=== PATIENT | male | born 1930 | race Caucasian/White ===

== ENCOUNTER 2018-04-13 13:22 | Observation (INO) ==
--- NOTE | 2018-04-13 14:02 | Emergency Department Report ---
General Adult HPI - General Chief complaint: Medical Clearance Stated complaint: [facility] Clearance Time Seen by Provider: 04/13/18 13:38 Source: patient, family Mode of arrival: ambulatory Limitations: other (dementia) - History of Present Illness HPI narrative: 88 M presents to the emergency department with a chief complaint of needing medical clearance for [facility]. Patient has been having a gradual decline with his dementia and slight increase in aggressive behavior over the past several months. Patient denies any pain or discomfort. Patient has had what he describes as a chronic cough. He was at his home when his symptoms began. Symptoms have been persistent in nature since onset. No other complaints or associated symptoms. Patient denies homicidal/suicidal ideation or plan. No self injury or self-harm. They do not note any exacerbating or remitting factors. - Related Data Home Medications Medication Instructions Recorded Confirmed Acetaminophen [Tylenol] 650 mg PO Q4H PRN 04/13/18 04/13/18 Aspirin [Adult Aspirin] 81 mg PO QAM 04/13/18 04/13/18 Bisacodyl Supp [Dulcolax] 10 mg RECTALLY DAILY PRN 04/13/18 04/13/18 Carboxymethylcellulose Sodium 2 drop EACH EYE Q4H PRN 04/13/18 04/13/18 [Refresh Liquigel] Diazepam [Valium] 5 mg PO Q12H PRN 04/13/18 04/13/18 Digoxin 125 mcg PO QAM 04/13/18 04/13/18 Divalproex Sodium [Divalproex 1,000 mg PO HS 04/13/18 04/13/18 Sodium ER] Doxazosin [Cardura] 2 mg PO DAILY 04/13/18 04/13/18 Dutasteride 0.5 mg PO QAM 04/13/18 04/13/18 EPINEPHrine [Epipen 2-Ariel] 0.3 mg IM PRN PRN 04/13/18 04/13/18 FentaNYL PATCH [Duragesic Patch] 50 mcg TD Q72H 04/13/18 04/13/18 Fluoxetine HCl 40 mg PO QAM 04/13/18 04/13/18 Fluticasone Nasal [place] [Flonase] 1 spray EA NOSTRIL QAM 04/13/18 04/13/18 Furosemide [Lasix 20 mg Tab] 20 mg PO DAILY 04/13/18 04/13/18 Haloperidol Lactate 5 mg IM Q8H PRN 04/13/18 04/13/18 Haloperidol [Haldol] 5 mg PO QAM 04/13/18 04/13/18 Levothyroxine Sodium 75 mcg PO ACB 04/13/18 04/13/18 Loperamide HCl [Imodium A-D] 2 mg PO QID PRN 04/13/18 04/13/18 Mag Hydrox/Aluminum Hyd/Simeth 30 ml PO Q4H PRN 04/13/18 04/13/18 [Alum-Mag Hydroxide-Simeth Liq] Magnesium Hydroxide [Milk of 30 ml PO DAILY PRN 04/13/18 04/13/18 Magnesia] Minocycline [Minocin] 100 mg PO QAM 04/13/18 04/13/18 Nystatin [Nystop] 1 applicatio TOP PRN PRN 04/13/18 04/13/18 OLANZapine [Olanzapine] 10 mg PO BID 04/13/18 04/13/18 Omeprazole 20 mg PO QAM 04/13/18 04/13/18 Peg 3350 238 G Bottle [Miralax] 17 gm PO DAILY PRN 04/13/18 04/13/18 Pseudoephedrine [Sudafed] 30 mg PO Q12H PRN 04/13/18 04/13/18 Tramadol [Ultram] 50 mg PO Q4HR PRN 04/13/18 04/13/18 Allergies Allergy/AdvReac Type Severity Reaction Status Date / Time morphine Allergy Verified 04/13/18 13:39 sunflower seed Allergy Verified 04/13/18 13:39 Review of Systems Limitations: ROS unobtainable due to patient's medical condition PFSH Arrhythmia Dementia with behavioral disturbance Diabetes mellitus, type 2 Hypertension Hyperthyroidism Surgical History: Several orthopedic surgeries Family History: Reviewed and noncontributory - Social History Smoking status: Never smoker Substance use type: does not use Alcohol intake frequency: does not drink Physical Exam - Limitations Limitations: no limitations - General General appearance: alert, in no apparent distress - Normal Exams: Head:: Normocephalic without trauma Eyes:: Pupils are PERRLA w/ EOMI, No scleral icterus, irritation, or foreign bodies noted ENMT:: No facial trauma, nasal exudates, pharyngeal erythema, or exudates are noted Dental: No fractured, loose, or missing teeth noted Neck:: Full range of motion, without adenopathy, JVD, bruits or thyromegaly Chest/Respirations:: Clear all diaz (slightly diminished breath sounds bilaterally.), with good airflow, and symmetry bilaterally Cardiovascular:: Regular rate and rhythm, without murmur or gallop, Pulses 2+ all extremities, capillary refill, <2 seconds all extremities Abdomen:: Bowel sounds positive, soft, non-tender, non-distended, no hepatosplenomegaly, masses or bruits noted Lymphatic:: No lymphadenopathy, or lymphedema noted Musculoskeletal:: No tenderness, or deformity noted, good range of motion, all extremities Integumentary:: No rashes, hives, or bruising noted, hair and nails, without abnormality Neurological:: Patient is alert (No focal deficit. At neuro baseline. ) Course Vital Signs Temperature 97.2 F 04/13/18 13:25 Pulse Rate 75 04/13/18 13:25 Respiratory Rate 16 04/13/18 13:25 Blood Pressure 111/64 04/13/18 13:25 Pulse Oximetry 90 04/13/18 13:25 Temperature 97.2 F 04/13/18 13:25 Pulse Rate 75 04/13/18 13:25 Respiratory Rate 16 04/13/18 13:25 Blood Pressure 111/64 04/13/18 13:25 Pulse Oximetry 90 04/13/18 13:25 Medical Decision Making - [facility] Narrative Medical decision making narrative: Labs/imaging were discussed in detail with the patient and family and questions are answered. Patient was ordered Levaquin 750 mg IV times one at 1700 when sepsis was considered. Patient was never hypotensive in the emergency department his lactic acid is less than 4. Patient was given 500 mL normal saline intravenously times one. Patient is discussed with Dr. Ferguson and will be admitted to the service of the hospitalist in improved condition. No further orders from accepting physician who is in agreement with the current plan of management. Patient and family are in agreement with the current plan of management. Patient declined offered analgesic pain medication in the emergency department stating that he is not having any pain or discomfort. - Differential Diagnosis dementia, metabolic disorder, UTI, pneumonia - Lab Data Result diagrams: 04/13/18 14:09 04/13/18 14:09 - Radiology Data CXR - Findings: Airspace consolidation in the left lower lobe. Possible infrahilar infiltrate on the right. Upper lobes are clear. No pneumothorax or effusion. Heart size and mediastinal contours are within normal limits. Tortuous thoracic aorta. Degenerative change in the spine and shoulders. Impression: Basilar pneumonia or aspiration, greater on the left. - EKG Data EKG #1 EKG results narrative: Sinus Rhythm. 79 bpm. NO STEMI. T wave inversion in V3-V6. T wave inversion in II/AVF. Disposition Clinical Impression: Pneumonia Qualifiers: Pneumonia type: due to unspecified organism Laterality: unspecified laterality Lung location: unspecified part of lung Qualified Code(s): J18.9 - Pneumonia, unspecified organism Disposition: 02 To [facility] [place] Acute Care Condition: Stable Time of Disposition: 16:00 (Admit. Dr. Ferguson. ) - Seen By: physician
--- NOTE | 2018-04-13 14:05 | XRay Report ---
Indication: med. clearance PROCEDURE: XR chest 1V: Encounter: Initial Comparison: None Findings: Airspace consolidation in the left lower lobe. Possible infrahilar infiltrate on the right. Upper lobes are clear. No pneumothorax or effusion. Heart size and mediastinal contours are within normal limits. Tortuous thoracic aorta. Degenerative change in the spine and shoulders. Impression: Basilar pneumonia or aspiration, greater on the left. .
[2018-04-13] MEDS: SALINE FLUSH 10ml SYRINGE IVF PRN ×2 (15:20→21:26)
[2018-04-13] MEDS ORDERED: LEVOFLOXACIN PB 750 MG/150 ML BAG IV SCH (17:00)
--- NOTE | 2018-04-13 18:04 | History & Physical Report ---
History of Present Illness Date: 04/15/18 Chief complaint: altered level of consciousness HPI: Mr. Alatorre's 88-year-old man in assisted living who has been increasingly fractious with his nursing staff. During the course the last day he is been increasingly altered level of consciousness in this quite somnolent by the time of my arrival. All of the information is being related by his son who had been primary patient care specialist until his placement in the assisted. He states that the patient has had a cough but no fevers or chills and no reported malaise. Review of Systems ROS unobtainable: due to mental status Past Medical History Medical History: Medical History (Last Updated 04/13/18 @ 18:06 by Patrick Ferguson MD) Dementia with behavioral disturbance Hypertension Family History: No Significant Family History - Social History Smoking status: Former smoker Substance use type: does not use Alcohol intake frequency: does not drink Medications Home Medications Medication Instructions Recorded Confirmed Type Acetaminophen [Tylenol] 650 mg PO Q4H PRN 04/13/18 04/14/18 History Aspirin [Adult Aspirin] 81 mg PO QAM 04/13/18 04/14/18 History Bisacodyl Supp [Dulcolax] 10 mg RECTALLY DAILY PRN 04/13/18 04/14/18 History Carboxymethylcellulose Sodium 2 drop EACH EYE Q4H PRN 04/13/18 04/14/18 History [Refresh Liquigel] Diazepam [Valium] 5 mg PO Q12H PRN 04/13/18 04/14/18 History Digoxin 125 mcg PO QAM 04/13/18 04/14/18 History Divalproex Sodium [Divalproex 1,000 mg PO HS 04/13/18 04/14/18 History Sodium ER] Doxazosin [Cardura] 2 mg PO DAILY 04/13/18 04/14/18 History Dutasteride 0.5 mg PO QAM 04/13/18 04/14/18 History EPINEPHrine [Epipen 2-Ariel] 0.3 mg IM PRN PRN 04/13/18 04/14/18 History FentaNYL PATCH [Duragesic Patch] 50 mcg TD Q72H 04/13/18 04/14/18 History Fluoxetine HCl 40 mg PO QAM 04/13/18 04/14/18 History Fluticasone Nasal [place] [Flonase] 1 spray EA NOSTRIL QAM 04/13/18 04/14/18 History Furosemide [Lasix 20 mg Tab] 20 mg PO DAILY 04/13/18 04/14/18 History Haloperidol Lactate 5 mg IM Q8H PRN 04/13/18 04/14/18 History Haloperidol [Haldol] 5 mg PO QAM 04/13/18 04/14/18 History Levothyroxine Sodium 75 mcg PO ACB 04/13/18 04/14/18 History Loperamide HCl [Imodium A-D] 2 mg PO QID PRN 04/13/18 04/14/18 History Mag Hydrox/Aluminum Hyd/Simeth 30 ml PO Q4H PRN 04/13/18 04/14/18 History [Alum-Mag Hydroxide-Simeth Liq] Magnesium Hydroxide [Milk of 30 ml PO DAILY PRN 04/13/18 04/14/18 History Magnesia] Minocycline [Minocin] 100 mg PO QAM 04/13/18 04/14/18 History Nystatin [Nystop] 1 applicatio TOP PRN PRN 04/13/18 04/14/18 History OLANZapine [Olanzapine] 10 mg PO BID 04/13/18 04/14/18 History Omeprazole 20 mg PO QAM 04/13/18 04/14/18 History Peg 3350 238 G Bottle [Miralax] 17 gm PO DAILY PRN 04/13/18 04/14/18 History Pseudoephedrine [Sudafed] 30 mg PO Q12H PRN 04/13/18 04/14/18 History Tramadol [Ultram] 50 mg PO Q4HR PRN 04/13/18 04/14/18 History Acetaminophen [Tylenol] 325 - 650 mg PO Q5H PRN tab 04/14/18 04/14/18 Rx Azithromycin 250 mg PO DAILY #6 tab 04/14/18 04/14/18 Rx Nystatin Powder [Mycostatin] 1 applicatio TP PRN PRN #1 bottle 04/14/18 Rx Polyvinyl Alcohol/Povidone O/S 2 drop EACH EYE Q4H PRN ampul 04/14/18 04/14/18 Rx [Refresh Classic] Allergies Allergy/AdvReac Type Severity Reaction Status Date / Time morphine Allergy Verified 04/13/18 13:39 sunflower seed Allergy Verified 04/13/18 13:39 Exam Vital Signs: Temperature 97.2 F 04/13/18 13:25 Pulse Rate 67 04/13/18 16:04 Respiratory Rate 20 04/13/18 16:04 Blood Pressure 125/60 04/13/18 16:04 Pulse Oximetry 92 04/13/18 16:04 Height/Weight/BMI: Height 5 ft 10 in Weight 74.843 kg - Constitutional Present: no acute distress, well nourished, well developed, somnolent - Routine HEENT Exam Head: Present: normocephalic, atraumatic ENT: Present: mucous membranes dry, dentition normal - Routine Neck Exam Absent: JVD, lymphadenopathy - Routine Respiratory Exam Present: CTA bilaterally. Absent: accessory muscle use, wheezes - Routine Cardiovascular Exam Present: RRR, S1, S2. Absent: murmur - Routine Abdominal Exam Present: soft, normoactive bowel sounds, non distended. Absent: tenderness - Routine Extremities Exam Present: normal capillary refill - Routine Skin Exam Present: dry, warm - Routine Neurological Exam Absent: alert - Routine Psychiatric Exam Present: unable to assess Results - Labs CBC & Chem 7: 04/14/18 06:02 04/14/18 12:01 Microbiology Results: Microbiology 04/13/18 17:21 Peripheral/Iv Start Blood Culture - Preliminary Culture Initiated - Results Pending 04/13/18 17:18 Peripheral/Iv Start Blood Culture - Preliminary Culture Initiated - Results Pending - Imaging and Cardiology Chest x-ray Status: image reviewed by me Additional comments: Minimal haziness at the bases bilaterally but not a good inspiratory film. Doubtful of pneumonia when correlated to auscultation of the lungs Assessment and Plan Assessment and Plan: Acute altered level of consciousness: rule out infectious encephalopathy Dementia with behavioral disturbance: patient is already on home medications for this but has not been poorly controlled in the assisted. [facility] has been contacted and they wish him placed in observation and further assessed for possible infection as there is some bilateral basal haziness on chest x-ray. Leukocytosis. Appears mild and may be due to some clinical dehydration. Will give the patient half a liter fluids at this time and repeat CBC in the morning. Levaquin had been initiated by disease 88 and has behavioral emotional disturbances I would not recommend continuing this. Will give them a very short course of Rocephin in the meantime but would not be inclined to continue this more than 72 hours unless more definitive signs of infection develop DISPOSITION: observation status with intention to place to [facility]. - Time spent with patient Time with patient PN: 30 minutes - Physician Narrative Physician: other Narrative: Date: 04/13/18 Time: 1800 Hospital Course Summary Disclaimer: The visit summary below is not to be considered part of the above Progress Note.
[2018-04-13] MEDS ORDERED: ACETAMINOPHEN 325 MG TABLET PO PRN (18:51)
[2018-04-13] MEDS ORDERED: BISACODYL 10 MG SUPPOSITORY RECTALLY PRN (18:51)
[2018-04-13] MEDS ORDERED: CEFTRIAXONE 1 G in NS 100 ML IV SCH ×2 (18:51→21:00)
[2018-04-13] MEDS ORDERED: CEFTRIAXONE 1 G in D5W 100 ML IV SCH (19:00)
[2018-04-13] MEDS ORDERED: DIAZEPAM 5 MG TABLET PO PRN (20:53)
[2018-04-13] MEDS ORDERED: HALOPERIDOL LACTATE 5 MG IV PRN (20:53)
[2018-04-13] MEDS ORDERED: OLANZapine 10 MG TABLET PO PRN (20:54)
[2018-04-14] MEDS: SALINE FLUSH 10ml SYRINGE IVF PRN ×2 (05:07→09:45)
[2018-04-14] MEDS ORDERED: HALOPERIDOL 5 MG/ML INJECTION IM PRN (06:29)
[2018-04-14] MEDS ORDERED: HALOPERIDOL 5 MG/ML INJECTION IVP PRN (06:45)
[2018-04-14] MEDS ORDERED: BISACODYL 10 MG SUPPOSITORY RECTALLY PRN (11:16)
[2018-04-14] MEDS ORDERED: MAG-AL + SIM ORAL LIQUID 30ml PO PRN (11:16)
[2018-04-14] MEDS ORDERED: NYSTATIN TOP PRN (11:16)
[2018-04-14] MEDS ORDERED: CARBOXYMETHYLCELLULOSE SODIUM D EACH EYE PRN (11:16)
[2018-04-14] MEDS ORDERED: POLYETHYL GLYCOL 3350 17gm PACKET PO PRN (11:16)
[2018-04-14] MEDS ORDERED: DOXAZOSIN 2 MG TABLET PO SCH (11:30)
[2018-04-14] MEDS ORDERED: REFRESH CLASSIC Eye Drops 0.4ml EACH EYE PRN (13:04)
--- NOTE | 2018-04-14 14:09 | Wound Care Progress Note ---
Wound Management - Patient Status Premedicated Prior to Dressing Change: No - Wound Left Heel Wound Type: Pressure Injury Wound Present on Admission?: Yes Wound Staging: Stage III Length: 1 Width: 0.8 Depth: 0.1 Wound Bed Appearance: Eschar Drainage Amount: Scant Drainage Odor: No Odor Irrigant Solution: Enzymatic Paste (Iodasorb) Primary Dressing: Foam Dressing Dressing Change Date: 04/14/18 Dressing Change Time: 14:08 Dressing Change Patient Tolerance: Tolerated Well (Will change Q 3 days.) Microbiology: Microbiology 04/13/18 17:21 Peripheral/Iv Start Blood Culture - Preliminary Culture Initiated - Results Pending 04/13/18 17:18 Peripheral/Iv Start Blood Culture - Preliminary Culture Initiated - Results Pending Right Heel Wound Type: Pressure Injury Wound Present on Admission?: Yes Wound Staging: Stage III Length: 1.7 Width: 1 Depth: 0.5 Wound Bed Appearance: Eschar Karla Wound Appearance: [place] Tunneling: No Undermining: No Drainage Amount: Scant Drainage Odor: No Odor Dressing Status: Changed Irrigant Solution: Enzymatic Paste (Iodosorb) Primary Dressing: Foam Dressing (Change drsg Q 3 days) Dressing Change Date: 04/14/18 Dressing Change Time: 14:09 Dressing Change Patient Tolerance: Tolerated Well Microbiology: Microbiology 04/13/18 17:21 Peripheral/Iv Start Blood Culture - Preliminary Culture Initiated - Results Pending 04/13/18 17:18 Peripheral/Iv Start Blood Culture - Preliminary Culture Initiated - Results Pending
--- NOTE | 2018-04-14 14:17 | Discharge Summary ---
Discharge Information Date of admission: 04/13/18 17:00 Anticipated date of discharge: 04/14/18 Attending Physician: Patrick Ferguson MD Primary care physician: OTHER Consults: 04/14/18 00:50 [facility] Consult [CONS] Routine Reason for consultation: STAGE 3 WOUND TO RIGHT HEEL FOUND ON ASSESSMENT 04/14/18 11:18 Physician Consult [CONS] Routine Consulting Provider: Rosa Maria La Reason For Exam: agitation, behaviors Ordering Provider has Notified Cooling Tower Operator: No - Discharge Diagnosis (1) Dementia with behavioral disturbance Status: Acute (2) Altered level of consciousness Status: Acute (3) Leukocytosis Status: Resolved Bibasilar pneumonia, acute, present on admission. Dementia with behavioral disturbance, present on admission. Altered level of consciousness, improving. Pressure ulcer to left heel, present on admission. Clinical dehydration, present on admission, resolved. Leukocytosis, present on admission, resolved. Hypernatremia, not present on admission. Arrhythmia, chronic. Diabetes mellitus, type 2. Hypertension. Chronic pain. Allergic rhinitis. Hypothyroidism. GERD. - Laboratory Labs: Laboratory Tests 04/13/2018 04/13/2018 04/13/2018 04/14/2018 04/14/2018 14:09 17:18 20:22 6:02 12:01 WBC 11.5 H 9.1 RBC 5.15 4.85 Hgb 15.1 14.2 Hct 45.9 43.5 MCV 89.1 89.7 MCH 29.3 29.3 MCHC 32.9 32.6 RDW Std Deviation 49.7 49.7 Plt Count 203 192 MPV 10.3 10.5 Immature Gran % (Auto) 0.4 Neut % (Auto) 75.6 H Lymph % (Auto) 10.8 L [place] % (Auto) 12.0 H Eos % (Auto) 1 Baso % (Auto) 0.2 Neut # (Auto) 8.7 H Lymph # (Auto) 1.2 [place] # (Auto) 1.4 H Eos # (Auto) 0.1 Baso # (Auto) 0 Abs Immat Gran (auto) 0.05 H Neutrophils % (Manual) 65 Lymphocytes % (Manual) 17.0 L Monocytes % (Manual) 9 Eosinophils % (Manual) 8.0 H Basophils % (Manual) 1 Neutrophils # (Manual) 5.9 Lymphocytes # (Manual) 1.5 Monocytes # (Manual) 0.8 Eosinophils # (Manual) 0.7 H Basophils # (Manual) 0.1 RBC Morph Comment Normal Turbidity < 20 < 20 Sodium 143 147 H Potassium 4.2 3.8 Chloride 104 108 H Carbon Dioxide 26 27 Anion Gap 13 12 BUN 36.0 H 32.0 H Creatinine 1.1 1 GFR Calculation 63 71 BUN/Creatinine Ratio 33 H 32 H Glucose 112 H 91 Calculated Osmolality 284 H 289 H Calcium 9.7 9.2 Total Bilirubin 0.7 Icterus Index < 2 < 2 AST 27 ALT 15 Alkaline Phosphatase 103 Troponin I < 0.012 Total Protein 7.2 Albumin 3.9 Globulin 3.3 Albumin/Globulin Ratio 1.2 Plasma Lactate 0.9 0.9 Vitamin B12 > 1000 H Specimen Hemolysis < 15 < 15 Ur Collection Type Urine, void-cc/notcc Urine Color Yellow Urine Clarity Clear Urine pH 5.5 Ur Specific Hayes 1.02 Urine Protein Negative Urine Glucose (UA) Negative Urine Ketones Negative Urine Occult Blood Trace-lysed Urine Nitrate Negative Urine Bilirubin Negative Urine Urobilinogen 0.2 Ur Leukocyte Esterase Negative Urinalysis Comment Microscopic not ind. Digoxin 0.8 - Microbiology Microbiology 04/13/18 17:21 Peripheral/Iv Start Blood Culture - Preliminary Culture Initiated - Results Pending 04/13/18 17:18 Peripheral/Iv Start Blood Culture - Preliminary Culture Initiated - Results Pending - Radiology Radiology: Date of Exam: 04/13/18 Type of Exam(s): XR chest 1V Reason for Exam(s): med. clearance Findings: Airspace consolidation in the left lower lobe. Possible infrahilar infiltrate on the right. Upper lobes are clear. No pneumothorax or effusion. Heart size and mediastinal contours are within normal limits. Tortuous thoracic aorta. Degenerative change in the spine and shoulders. Impression: Basilar pneumonia or aspiration, greater on the left. History of Present Illness HPI: Mr. Alatorre's 88-year-old man in assisted living who has been increasingly fractious with his nursing staff. During the course the last day he is been increasingly altered level of consciousness in this quite somnolent by the time of my arrival. All of the information is being related by his son who had been primary home care chaplain until his placement in the custodial. He states that the patient has had a cough but no fevers or chills and no reported malaise. Objective Vital signs: Temperature 98.1 F 04/14/18 08:00 Pulse Rate 69 04/14/18 08:00 Respiratory Rate 18 04/14/18 08:00 Blood Pressure 133/82 04/14/18 08:00 Pulse Oximetry 92 04/14/18 08:00 Height/Weight/BMI: Height 5 ft 10 in Weight 158 lb 4.67 oz Body Mass Index 22.4 Hospital Course This is a general summary of the patient's hospital course. For more details refer to the complete medical record. Hospital course: 04/13/18: Patient admitted to observation status under the care of the hospitalist service. Acute altered level of consciousness: rule out infectious encephalopathy Dementia with behavioral disturbance: patient is already on home medications for this but has not been poorly controlled in the custodial. [facility] has been contacted and they wish him placed in observation and further assessed for possible infection as there is some bilateral basal haziness on chest x-ray. Leukocytosis. Appears mild and may be due to some clinical dehydration. Will give the patient half a liter fluids at this time and repeat CBC in the morning. Levaquin had been initiated by disease 88 and has behavioral emotional disturbances I would not recommend continuing this. Will give them a very short course of Rocephin in the meantime but would not be inclined to continue this more than 72 hours unless more definitive signs of infection develop DISPOSITION: observation status with intention to place to geriatric psychiatric [facility]. 04/14/18: Patient seen and screened by liu and will be transferred to the [facility] unit for further psychiatric evaluation and treatment. Leukocytosis resolved. Patient remains afebrile. Will change treatment for pneumonia to oral azithromycin x 5 days. Speech therapy consulted for dysphagia evaluation and awaiting results. Wound care to continue to follow patient regarding pressure ulcer to left heel. Will continue home medications and psychiatric medications per Dr. La and team. Seen and examined patient on same day as the above note. Agree with history, physical, assessment and plan. Comprehensive physical findings correlate to the above note. Exam: Gen.:no apparent distress, moderately aroussable to noxious stimuli HEENT: normocephalic atraumatic, oral mucosa moderately dry neck: no lymphadenopathy no jugular venous distention respiratory: there to auscultation bilaterally with good excursion cardiovascular: cardiovascular S1 S2 no adventitious murmurs rubs or gallops abdomen/GI: soft nondistended with bowel sounds extremities: good peripheral perfusion with no edema skin/integument: no significant injuries or edema neuro: minimally responsive but protecting airway. No focal deficits appreciable psych: unable to assess Labs: reviewed imaging: radiology the image as a left basilar infiltrate which did not correlate to my clinical findings. EKG: within normal limits Assessment and plan: pneumonia not very probable but I cannot get proper inspiratory breath so will convert the patient over to oral azithromycin. Dysphagia screening has been performed. Patient appears medically stable to transfer to geriatric psychiatry. Leukocytosis improved after fluids. Patient remains altered but if this is for medical reason of a minimal pneumonia in the base it will improve on oral antibiotics. Documented on [employer]on speech to text. Efforts to correct speech recognition errors performed, but variation may exist Time spent with patient: greater than 35 minutes Resuscitation Status: Do Not Resuscitate Discharge Plan - Discharge Disposition Discharge Date: 04/14/18 Disposition: 66 [facility] *Condition: Stable Reason For Visit (Visit label in EMR): pneumonia - Discharge Medications *Discharge Medications: New Acetaminophen [Tylenol] 325 - 650 mg PO Q5H PRN tab PRN Reason: Discomfort Nystatin Powder [Mycostatin] 1 applicatio TP PRN PRN #1 bottle PRN Reason: Apply to groin area as needed Polyvinyl Alcohol/Povidone O/S [Refresh Classic] 2 drop EACH EYE Q4H PRN ampul PRN Reason: Dry Eyes Azithromycin 250 mg PO DAILY #6 tab Continue Haloperidol Lactate 5 mg IM Q8H PRN PRN Reason: Agitation Fluticasone Nasal Lyman [Flonase] 1 spray EA NOSTRIL QAM FentaNYL PATCH [Duragesic Patch] 50 mcg TD Q72H EPINEPHrine [Epipen 2-Ariel] 0.3 mg IM PRN PRN PRN Reason: Prn Orders Bisacodyl Supp [Dulcolax] 10 mg RECTALLY DAILY PRN PRN Reason: Constipation Doxazosin [Cardura] 2 mg PO DAILY Digoxin 125 mcg PO QAM Divalproex Sodium [Divalproex Sodium ER] 1,000 mg PO HS Aspirin [Adult Aspirin] 81 mg PO QAM Dutasteride 0.5 mg PO QAM Loperamide HCl [Imodium A-D] 2 mg PO QID PRN PRN Reason: Diarrhea Diazepam [Valium] 5 mg PO Q12H PRN PRN Reason: Agitation Tramadol [Ultram] 50 mg PO Q4HR PRN PRN Reason: Pain Acetaminophen [Tylenol] 650 mg PO Q4H PRN PRN Reason: Pain /Fever Pseudoephedrine [Sudafed] 30 mg PO Q12H PRN PRN Reason: Allergy Symptoms Carboxymethylcellulose Sodium [Refresh Liquigel] 2 drop EACH EYE Q4H PRN PRN Reason: Dry Eyes Omeprazole 20 mg PO QAM Nystatin [Nystop] 1 applicatio TOP PRN PRN PRN Reason: Prn Orders Mag Hydrox/Aluminum Hyd/Simeth [Alum-Mag Hydroxide-Simeth Liq] 30 ml PO Q4H PRN PRN Reason: Indigestion Peg 3350 238 G Bottle [Miralax] 17 gm PO DAILY PRN PRN Reason: Constipation Minocycline [Minocin] 100 mg PO QAM Magnesium Hydroxide [Milk of Magnesia] 30 ml PO DAILY PRN PRN Reason: Constipation Levothyroxine Sodium 75 mcg PO ACB OLANZapine [Olanzapine] 10 mg PO BID Haloperidol [Haldol] 5 mg PO QAM Fluoxetine HCl 40 mg PO QAM Furosemide [Lasix 20 mg Tab] 20 mg PO DAILY - Discharge Packet/Instructions *Diet: Cardiac diet with 2g salt restriction and low fat. *Activity: As tolerated. *Pain Management/Treatment: Tylenol 325-650 Q5H PRN. *Wound Care: Left heel pressure ulcer, stage III - Foam dressing every 3 days per wound care. Right heel pressure ulcer, stage III - foam dressing every 3 days per wound care. *Expected Signs/Symptoms: Gradual improvement in behaviors with psychiatric cares. *Notify Physician if: fever >100.8, increased shortness of breath, decreased level of consciousness, change or worsening in condition. *During Business Hours Contact: your primary care provider. *After Business Hours Contact: your primary care provider or [facility]. *Pending Lab/Results: No Pending Lab - IRU/GEN Discharge/Transfer - Referrals/Follow Up *Referrals/Follow Up: Doctor, [facility] [Other] - 1 Week (Call to schedule following discharge) - Patient Handouts Patient Handouts: Pneumonia (GEN) - Dismissal Complete Discharge Instructions are:: Complete Physician Narrative - Narrative Attestation Narrative: Date: 04/14/18 Time: 2521
[2018-04-14 14:42] VITALS: BMI 22.7
[2018-04-14 15:17] VITALS: BP 118/64; PULSE 95; RESP 14; TEMP 97.3; O2SAT 93
[2018-04-15] MEDS ORDERED: LEVOTHYROXINE 75 MCG TABLET PO SCH (06:30)
[2018-04-15] MEDS ORDERED: OMEPRAZOLE 20 MG CAPSULE PO SCH (06:30)
[2018-04-15] MEDS ORDERED: FUROSEMIDE 20 MG TABLET PO SCH (09:00)
[2018-04-15] MEDS ORDERED: DUTASTERIDE 0.5 MG CAPSULE PO SCH (09:00)
[2018-04-15] MEDS ORDERED: FLUoxetine 20 MG CAPSULE PO SCH (09:00)
[2018-04-15] MEDS ORDERED: ASPIRIN *EC* 81 MG TABLET PO SCH (09:00)
[2018-04-15] MEDS ORDERED: FLUTICASONE NASAL SPRAY 50mcg EA NOSTRIL SCH (09:00)
[2018-04-15] MEDS ORDERED: DIGOXIN 125 MCG TABLET PO SCH (09:00)
[2018-04-15] MEDS ORDERED: MINOCYCLINE 100 MG CAPSULE PO SCH (09:00)
== END 2018-04-14 15:55 ==
LOC: EDHOLD 13:22 → ED 13:22 → MED 18:38
PROVIDERS: ADMIT Family Medicine; ATTEND Family Medicine

== ENCOUNTER 2018-04-14 16:29 | Inpatient (IN) ==
--- OUTSIDE RECORDS SUMMARY | 2018-04-14 16:46 | External Medical Summary | Continuity of Care Document ---
:1930 Author Organization [facility] Allergies Active Description Code Type Severity Reaction Onset Reported/ Identified Relationship Clinical to Patient Status Yes MORPHINE 1545 DRUG N/A N/A Yes SUNFLOWER 58378 DRUG N/A N/A SEED Yes No Known 69377 N/A N/A Drug 998 Allergies Yes .MDRO 0040 Misce N/A N/A 04/02/2015 llane ous Aller gy Yes .OLU 0030 Misce N/A N/A 04/02/2015 llane ous Aller gy Yes morphine F0060 Drug N/A N/A 04/02/2015 28070 Aller gy Yes SUNFLOWER SUNFL Misce Severe THROAT 04/02/2015 SEEDS OWER llane CLOSES SEEDS ous Aller gy Yes morphine Aller Unknown N/A 04/13/2018 gy Yes sunflower Aller Unknown N/A 04/13/2018 seed gy Medications Medication Packaging Start Date Stop Date Route Dosage Sig Adult 04/13/2018 PO 81 mg Aspirin QAM 04/13/2018 PO 100 mg Minocin QAM 04/13/2018 PO 20 mg Omeprazole QAM 04/13/2018 PO 360 ml Alum-Mag Q4H Hydroxide-Simeth Liq Milk 04/13/2018 PO 400 mg/5 ml of Magnesia DAILY 04/13/2018 IM 5 mg/ml Haloperidol Q8H Lactate Ultram 04/13/2018 PO 50 mg Q4HR 04/13/2018 PO 2 mg Cardura DAILY Valium 04/13/2018 PO 5 mg Q12H 04/13/2018 PO 325 mg Tylenol Q4H Epipen 04/13/2018 IM 0.3 mg/0.3 2-Ariel ml PRN 04/13/2018 PO 238 gm Miralax DAILY 04/13/2018 PO 30 mg Sudafed Q12H Haldol 04/13/2018 PO 5 mg QAM 04/13/2018 RECTALLY 10 mg Dulcolax DAILY Nystop 04/13/2018 TOP 60 gm PRN 04/13/2018 PO 2 mg Imodium A-D QID 04/13/2018 TD 50 Duragesic Patch mcg/patch Q72H 04/13/2018 PO 75 mcg Levothyroxine ACB Sodium 04/13/2018 PO 125 mcg Digoxin QAM 04/13/2018 PO 500 mg Divalproex Sodium HS ER 04/13/2018 PO 40 mg Fluoxetine HCl QAM 04/13/2018 PO 10 mg Olanzapine BID Lasix 04/13/2018 PO 20 mg 20 mg Tab DAILY 04/13/2018 EA NOSTRIL 120 Flonase spray/16 g QAM 04/13/2018 PO 0.5 mg Dutasteride QAM 04/13/2018 EACH EYE 15 ml Refresh Liquigel Q4H Problems Date Dx Attending Type Code Diagnosis Diagnosed By Coded 02/25/2015 OT 812.41 02/25/2015 OT E885.9 03/13/2015 Hernan-Michele OT 812.41 , Mitul E 03/13/2015 Hernan-Ordenes OT E885.9 , Mitul E 04/02/2015 Hernan-Ordenes OT 812.41 , Mitul E 04/02/2015 Hernan-Ordenes OT E885.9 , Mitul E 04/10/2015 Hernan-Ordenes OT 812.41 , Mitul E 04/10/2015 Hernan-Ordenes OT E885.9 , Mitul E 04/11/2015 NICK SMILEY F 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), WITHOUT BEHAVIORAL DISTURBANCE 04/11/2015 NICK SMILEY F 28355 ANXIETY DISORDER NOS 04/11/2015 Hernan-Ordenes OT 812.41 , Mitul E 04/11/2015 Hernan-Ordenes OT E885.9 , Mitul E 04/11/2015 Hunsberger DO, OT 250.00 Abhi R 04/11/2015 Hunsberger DO, OT 294.10 Abhi R 04/11/2015 Hunsberger DO, OT 300.00 Abhi R 04/11/2015 Hunsberger DO, OT 331.0 Abhi R 04/11/2015 Hunsberger DO, OT 338.29 Abhi R 04/11/2015 Hunsberger DO, OT 401.9 Abhi R 04/11/2015 Hunsberger DO, OT 564.00 Abhi R 04/11/2015 Hunsberger DO, OT 719.7 Abhi R 04/11/2015 Hunsberger DO, OT 721.42 Abhi R 04/11/2015 Hunsberger DO, OT 729.89 Abhi R 04/11/2015 Hunsberger DO, OT 799.3 Abhi R 04/11/2015 Hunsberger DO, OT V15.82 Abhi R 04/11/2015 Hunsberger DO, OT V15.88 Abhi R 04/11/2015 Hunsberger DO, OT V43.65 Abhi R 04/11/2015 Hunsberger DO, OT V45.89 Abhi R 04/11/2015 Hunsberger DO, OT V54.19 Abhi R 04/11/2015 Hunsberger DO, OT V57.89 Abhi R 04/16/2015 Hernan-Ordenes OT 812.41 , Mitul E 04/22/2015 Hernan-Ordenes OT 812.40 , Mitul E 04/25/2015 Hernan-Ordenes OT 812.41 , Mitul E 05/06/2015 Hernan-Ordenes OT 812.41 , Mitul E 05/10/2015 Hernan-Ordenes OT 812.40 , Mitul E 05/14/2015 Hernan-Ordenes OT 812.41 , Mitul E 05/15/2015 Hernan-Ordenes OT 812.41 , Mitul E 05/15/2015 Hernan-Ordenes OT 812.40 , Mitul E 05/18/2015 Hernan-Ordenes OT 812.41 , Mitul E 05/20/2015 Hernan-Ordenes OT 812.41 , Mitul E 05/22/2015 Hernan-Ordenes OT 812.41 , Mitul E 05/27/2015 Zheng HERRON, Fox Rojo OT 812.41 05/28/2015 Hernan-Ordenes OT 812.41 , Mitul Morris 05/28/2015 Srinivasan DE SOUZA, Addy OT 272.0 [place] 05/28/2015 Srinivasan DE SOUZA, Addy OT 401.1 [place] 05/28/2015 Srinivasan DE SOUZA, Addy OT 424.1 [place] 05/28/2015 Srinivasan DE SOUZA, Addy OT 272.0 [place] 05/28/2015 Srinivasan DE SOUZA, Addy OT 401.1 [place] 05/28/2015 Srinivasan DE SOUZA, Addy OT 424.1 [place] 05/28/2015 Srinivasan DE SOUZA, Addy OT 272.0 [place] 05/28/2015 Srinivasan DE SOUZA, Addy OT 401.1 [place] 05/28/2015 Srinivasan DE SOUZA, Addy OT 424.1 [place] 05/28/2015 Srinivasan DE SOUZA, Addy OT 272.0 [place] 05/28/2015 Srinivasan DE SOUZA, Addy OT 401.1 [place] 05/28/2015 Srinivasan DE SOUZA, Addy OT 424.1 [place] 06/04/2015 Srinivasan DE SOUZA, Addy OT 272.0 [place] 06/04/2015 Srinivasan DE SOUZA, Addy OT 401.1 [place] 06/04/2015 Srinivasan DE SOUZA, Addy OT 424.1 [place] 06/04/2015 Srinivasan DE SOUZA, Addy OT 272.0 [place] 06/04/2015 Srinivasan DE SOUZA, Addy OT 401.1 [place] 06/04/2015 Srinivasan DE SOUZA, Addy OT 424.1 [place] 06/04/2015 Srinivasan DE SOUZA, Addy OT 272.0 [place] 06/04/2015 Sirnivasan DE SOUZA, Addy OT 401.1 [place] 06/04/2015 Srinivasan DE SOUZA, Addy OT 424.1 [place] 06/04/2015 Srinivasan DE SOUZA, Addy OT 272.0 [place] 06/04/2015 Srinivasan DE SOUZA, Addy OT 401.1 [place] 06/04/2015 Srinivasan DE SOUZA, Addy OT 424.1 [place] 06/04/2015 Srinivasan DE SOUZA, Addy OT 272.0 [place] 06/04/2015 Srinivasan DE SOUZA, Addy OT 401.1 [place] 06/04/2015 Srinivasan DE SOUZA, Addy OT 424.1 [place] 06/04/2015 Srinivasan DE SOUZA, Addy OT 272.0 [place] 06/04/2015 Srinivasan DE SOUZA, Addy OT 401.1 [place] 06/04/2015 Srinivasan DE SOUZA, Addy OT 424.1 [place] 06/06/2015 Hernan-Ordenes OT 812.41 , Mitul Morris 06/10/2015 Hernan-Ordenes OT 812.41 , Mitul Morris 06/11/2015 Hernan-Ordenes OT 812.41 , Mitul Morris 06/12/2015 Hernan-Ordenes OT 812.41 , Mitul Morris 06/13/2015 Hernan-Ordenes OT 812.41 , Mitul Morris 06/13/2015 Hernan-Ordenes OT 812.41 , Mitul E 06/13/2015 Zheng HERRON, Fox R OT 812.41 06/23/2015 Hernan-Ordenes OT 354.2 MD, Mitul E 06/25/2015 Hernan-Ordenes OT 812.41 , Mitul E 06/26/2015 Zheng HERRON, Fox R OT 812.41 07/05/2015 Hernan-Ordenes OT 812.41 MD, Mitul E 07/11/2015 Hernan-Ordenes OT 812.41 MD, Mitul E 07/15/2015 Hernan-Ordenes OT 812.41 MD, Mitul E 07/17/2015 Hernan-Ordenes OT 354.2 , Mitul E 07/28/2015 Hernan-Ordenes OT 812.41 , Mitul E 07/29/2015 Hernan-Ordenes OT 812.41 , Mitul E 08/12/2015 Fox Bean R OT V54.89 08/12/2015 Fox Bean R OT V54.89 08/27/2015 Srinivasan DE SOUZA, Addy OT 272.0 [place] 08/27/2015 Srinivasan DE SOUZA, Addy OT 397.0 [place] 08/27/2015 Srinivasan DE SOUZA, Addy OT 401.1 [place] 08/27/2015 Srinivasan DE SOUZA, Addy OT 416.8 [place] 08/27/2015 Srinivasan DE SOUZA, Addy OT 424.1 [place] 08/27/2015 Srinivasan DE SOUZA, Addy OT 592.0 [place] 08/27/2015 Srinivasan DE SOUZA, Addy OT 788.21 [place] 08/27/2015 Fox Bean R OT V54.89 09/04/2015 Fox Bean R OT V54.89 09/11/2015 Hernan-Ordenes OT 812.41 , Mitul E 09/11/2015 Srinivasan DE SOUZA, Addy OT 272.0 [place] 09/11/2015 Srinivasan DE SOUZA, Addy OT 397.0 [place] 09/11/2015 Srinivasan DE SOUZA, Addy OT 401.1 [place] 09/11/2015 Srinivasan DE SOUZA, Addy OT 416.8 [place] 09/11/2015 Srinivasan DE SOUZA, Addy OT 424.1 [place] 09/11/2015 Srinivasan DE SOUZA, Addy OT 592.0 [place] 09/11/2015 Srinivasan DE SOUZA, Addy OT 788.21 [place] 11/18/2015 Flor DE SOUZA, OT M48.06 Bryan T 11/18/2015 Flor DE SOUZA, OT M48.06 Bryan T 11/19/2015 Flor DE SOUZA, OT M48.06 Bryan T 11/19/2015 Flor DE SOUAZ, OT M48.06 Bryan T 11/19/2015 Srinivasan DE SOUZA, Addy OT E78.0 [place] 11/19/2015 Srinivasan DE SOUZA, Addy OT I35.0 [place] 11/19/2015 Srinivasan DE SOUZA, Addy OT R03.0 [place] 11/19/2015 Srinivasan DE SOUZA, Addy OT E78.0 [place] 11/19/2015 Srinivasan DE SOUZA, Addy OT I35.0 [place] 11/19/2015 Srinivasan DE SOUZA, Addy OT R03.0 [place] 11/19/2015 Srinivasan DE SOUZA, Addy OT E78.0 [place] 11/19/2015 Srinivasan DE SOUZA, Addy OT I35.0 [place] 11/19/2015 Srinivasan DE SOUZA, Addy OT R03.0 [place] 11/20/2015 Srinivasan DE SOUZA, Addy OT E78.0 [place] 11/20/2015 Srinivasan DE SOUZA, Addy OT I35.0 [place] 11/20/2015 Srinivasan DE SOUZA, Addy OT R03.0 [place] 11/27/2015 Flor DE SOUZA, OT M48.06 Bryan T 11/27/2015 Flor DE SOUZA, OT M48.06 Bryan T 11/27/2015 Flor DE SOUZA, OT M48.06 Bryan T 11/27/2015 Flor DE SOUZA, OT M48.06 Bryan T 11/27/2015 Flor DE SOUZA, OT M48.06 Bryan T 11/27/2015 Flor DE SOUZA, OT M41.9 Bryan T 11/27/2015 Flor DE SOUZA, OT M43.16 Bryan T 11/27/2015 Flor DE SOUZA, OT M48.06 Bryan T 12/09/2015 Srinivasan DE SOUZA, Addy OT E78.0 [place] 12/09/2015 Srinivasan DE SOUZA, Addy OT I35.0 [place] 12/09/2015 Srinivasan DE SOUZA, Addy OT R03.0 [place] 12/09/2015 Srinivasan DE SOUZA, Addy OT E78.0 [place] 12/09/2015 Srinivasan DE SOUZA, Addy OT I35.0 [place] 12/09/2015 Srinivasan DE SOUZA, Addy OT R03.0 [place] 12/09/2015 Sriinvasan DE SOUZA, Addy OT E78.0 [place] 12/09/2015 Srinivasan DE SOUZA, Addy OT I35.0 [place] 12/09/2015 Srinivasan DE SOUZA, Addy OT R03.0 [place] 12/09/2015 Srinivasan DE SOUZA, Addy OT E78.0 [place] 12/09/2015 Srinivasan DE SOUZA, Addy OT I35.0 [place] 12/09/2015 Srinivasan DE SOUZA, Addy OT R03.0 [place] 12/09/2015 Srinivasan DE SOUZA, Addy OT E78.0 [place] 12/09/2015 Srinivasan DE SOUZA, Addy OT I35.0 [place] 12/09/2015 Srinivasan DE SOUZA, Addy OT R03.0 [place] 12/09/2015 Srinivasan DE SOUZA, Addy OT E78.0 [place] 12/09/2015 Srinivasan DE SOUZA, Addy OT I35.0 [place] 12/09/2015 Srinivasan DE SOUZA, Addy OT R03.0 [place] 12/09/2015 Srinivasan DE SOUZA, Addy OT R94.39 [place] 01/14/2016 Srinivasan DE SOUZA, Addy OT E78.0 [place] 01/14/2016 Srinivasan DE SOUZA, Addy OT I35.0 [place] 01/14/2016 Srinivasan DE SOUZA, Addy OT R03.0 [place] 01/23/2016 Srinivasan DE SOUZA, Addy OT E78.0 [place] 01/23/2016 Srinivasan DE SOUZA, Addy OT I35.0 [place] 01/23/2016 Srinivasan DE SOUZA, Addy OT R03.0 [place] 05/01/2016 Catracho Emery OT E11.9 05/01/2016 Catracho Emery OT I10 05/01/2016 Catracho Emery OT S00.03XA 05/01/2016 Catracho Emery OT S51.011A 05/01/2016 Catracho Emery OT W01.198A 05/01/2016 Catracho Emery OT Y92.009 05/01/2016 Catracho Emery OT Y99.8 05/01/2016 Catracho Emery OT Z23 05/10/2016 Srinivasan DE SOUZA, Addy OT E78.0 [place] 05/10/2016 Srinivasan DE SOUZA, Addy OT I35.0 [place] 05/10/2016 Srinivasan DE SOUZA, Addy OT R03.0 [place] 05/10/2016 Srinivasan DE SOUZA, Addy OT E78.0 [place] 05/10/2016 Srinivasan DE SOUZA, Addy OT I35.0 [place] 05/10/2016 Srinivasan DE SOUZA, Addy OT R03.0 [place] 05/12/2016 Srinivasan DE SOUZA, Addy OT E11.9 [place] 05/12/2016 Srinivasan DE SOUZA, Addy OT E78.2 [place] 05/12/2016 Srinivasan DE SOUZA, Addy OT I10 [place] 05/12/2016 Srinivasan DE SOUZA, Addy OT Z79.899 [place] 05/12/2016 Srinivasan DE SOUZA, Addy OT E11.9 [place] 05/12/2016 Srinivasan DE SOUZA, Addy OT E78.2 [place] 05/12/2016 Srinivasan DE SOUZA, Addy OT I10 [place] 05/12/2016 Srinivasan DE SOUZA, Addy OT Z79.899 [place] 05/12/2016 Srinivasan DE SOUZA, Addy OT E11.9 [place] 05/12/2016 Srinivasan DE SOUZA, Addy OT E78.2 [place] 05/12/2016 Srinivasan DE SOUZA, Addy OT I10 [place] 05/12/2016 Srinivasan DE SOUZA, Addy OT Z79.899 [place] 05/17/2016 Srinivasan DE SOUZA, Addy OT E11.9 [place] 05/17/2016 Srinivasan DE SOUZA, Addy OT E78.2 [place] 05/17/2016 Srinivasan DE SOUZA, Addy OT I10 [place] 05/17/2016 Srinivasan DE SOUZA, Addy OT Z79.899 [place] 05/18/2016 Srinivasan DE SOUZA, Addy OT E11.9 [place] 05/18/2016 Srinivasan DE SOUZA, Addy OT E78.2 [place] 05/18/2016 Srinivasan DE SOUZA, Addy OT I10 [place] 05/18/2016 Srinivasan DE SOUZA, Addy OT Z79.899 [place] 05/18/2016 Srinivasan DE SOUZA, Addy OT E11.9 [place] 05/18/2016 Srinivasan DE SOUZA, Addy OT E78.2 [place] 05/18/2016 Srinivasan DE SOUZA, Addy OT I10 [place] 05/18/2016 Srinivasan DE SOUZA, Addy OT Z79.899 [place] 05/18/2016 Srinivasan DE SOUZA, Addy OT E11.9 [place] 05/18/2016 Srinivasan DE SOUZA, Addy OT E78.2 [place] 05/18/2016 Srinivasan DE SOUZA, Addy OT I10 [place] 05/18/2016 Srinivasan DE SOUZA, Addy OT Z79.899 [place] 05/18/2016 Srinivasan DE SOUZA, Addy OT E11.9 [place] 05/18/2016 Srinivasan DE SOUZA, Addy OT E78.2 [place] 05/18/2016 Srinivasan DE SOUZA, Addy OT I10 [place] 05/18/2016 Srinivasan DE SOUZA, Addy OT Z79.899 [place] 05/18/2016 Srinivasan DE SOUZA, Addy OT E11.9 [place] 05/18/2016 Srinivasan DE SOUZA, Addy OT E78.2 [place] 05/18/2016 Srinivasan DE SOUZA, Addy OT I10 [place] 05/18/2016 Srinivasan DE SOUZA, Addy OT Z79.899 [place] 05/18/2016 Srinivasan DE SOUZA, Addy OT E11.9 [place] 05/18/2016 Srinivasan DE SOUZA, Addy OT E78.2 [place] 05/18/2016 Srinivasan DE SOUZA, Addy OT I05.9 [place] 05/18/2016 Srinivasan DE SOUZA, Addy OT I10 [place] 05/18/2016 Srinivasan DE SOUZA, Addy OT I35.0 [place] 05/18/2016 Srinivasan DE SOUZA, Addy OT R06.02 [place] 05/18/2016 Srinivasan DE SOUZA, Addy OT Z79.899 [place] 05/20/2016 Srinivasan DE SOUZA, Addy OT E11.9 [place] 05/20/2016 Srinivasan DE SOUZA, Addy OT E78.2 [place] 05/20/2016 Srinivasan DE SOUZA, Addy OT I05.9 [place] 05/20/2016 Srinivasan DE SOUZA, Addy OT I10 [place] 05/20/2016 Srinivasan DE SOUZA, Addy OT I35.0 [place] 05/20/2016 Srinivasan DE SOUZA, Addy OT R06.02 [place] 05/20/2016 Srinivasan DE SOUZA, Addy OT Z79.899 [place] 06/17/2016 Srinivasan DE SOUZA, Addy OT E11.9 [place] 06/17/2016 Srinivasan DE SOUZA, Addy OT E78.2 [place] 06/17/2016 Srinivasan DE SOUZA, Addy OT I10 [place] 06/17/2016 Srinivasan DE SOUZA, Addy OT Z79.899 [place] 06/23/2016 Srinivasan DE SOUZA, Addy OT E11.9 [place] 06/23/2016 Srinivasan DE SOUZA, Addy OT E78.2 [place] 06/23/2016 Srinivasan DE SOUZA, Addy OT I10 [place] 06/23/2016 Srinivasan DE SOUZA, Addy OT Z79.899 [place] 08/26/2016 [place], OT F02.80 Kris Arpit 08/26/2016 [place], OT G30.9 Kris J 08/26/2016 Marcell[place], OT S51.012A Kris Arpit 08/26/2016 [place], OT W01.0XXA Kris Arpit 08/26/2016 Marcell[place], OT Z79.82 Kris Munson 12/08/2016 Srinivasan DE SOUZA, Addy OT E78.2 [place] 12/08/2016 Srinivasan DE SOUZA, Addy OT I10 [place] 12/15/2016 Srinivasan DE SOUZA, Addy OT E78.2 [place] 12/15/2016 Srinivasan DE SOUZA, Addy OT I10 [place] 05/05/2017 CINDY LYNCH V2 [id number] Altered Mental Status 05/05/2017 CINDY LYNCH V2 819630 Altered Mental Status 05/05/2017 CINDY LYNCH V2 755291 Altered Mental Status 05/05/2017 CINDY LYNCH V2 640007 Altered Mental Status 05/05/2017 CINDY LYNCH V2 694137 Altered Mental Status 05/05/2017 CINDY LYNCH V1 N18.9 Chronic kidney disease, unspecified 05/05/2017 CINDY LYNCH V1 R40.4 Transient alteration of awareness 05/05/2017 CINDY LYNCH V1 R41.82 Altered mental status, unspecified 05/05/2017 CINDY LYNCH N18.9 Chronic kidney disease, unspecified 05/05/2017 CINDY LYNCH V1 R40.4 Transient alteration of awareness 05/05/2017 CINDY LYNCH V1 R41.82 Altered mental status, unspecified 05/21/2017 Catracho Emery A V2 246890 Altered Mental Status 05/21/2017 Olvin Emeryua A V2 165581 Altered Mental Status 05/21/2017 Olvin Emeryua A V2 109957 Altered Mental Status 05/21/2017 Olvin Emeryua A V2 857746 Altered Mental Status 05/21/2017 Marcela Emeryshua A V2 536864 Altered Mental Status 05/21/2017 Catracho Emery A V1 R40.4 Transient alteration of awareness 05/21/2017 Marcela Emeryshua A V1 R40.4 Transient alteration of awareness 09/22/2017 [place], V1 R41.0 Disorientation, Price A unspecified 09/22/2017 [place], V1 R41.0 Disorientation, Price A unspecified 09/22/2017 [place], V1 R41.0 Disorientation, Price A unspecified 12/02/2017 [place], V2 812391 Altered Mental ASHLEY E~PLOMTI Status 12/02/2017 [place], V2 902575 Altered Mental ASHLEY E~PLOMTI Status 12/02/2017 [facility] 947251 Altered Mental ASHLEY E~PLOMTI Status 12/03/2017 SHERICENICK 311 Depressive Disorder Not Elsewhere Classified 12/03/2017 [facility] V2 984980 Altered Mental ASHLEY E~PLOMTI Status 12/03/2017 [facility], V2 377392 Altered Mental ASHLEY E~PLOMTI Status 12/03/2017 [facility], V1 R40.4 Transient ASHLEY E~PLOMTI alteration of awareness 12/03/2017 AMARI Powell Z00.00 Encounter For [facility] Without Abnormal Findings 12/03/2017 [facility], V1 R40.4 Transient ASHLEY E~PLOMTI alteration of awareness 12/28/2017 Andre Z00.00 Encounter For [facility] Examination Without Abnormal Findings 02/14/2018 V1 E11.621 Type 2 diabetes mellitus with foot ulcer ([facility]) 02/14/2018 V1 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 ([facility]) 02/14/2018 V1 E11.621 Type 2 diabetes mellitus with foot ulcer ([facility]) 02/14/2018 V1 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 ([facility]) 03/07/2018 V1 E11.621 Type 2 diabetes mellitus with foot ulcer ([facility]) 03/07/2018 V1 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 ([facility]) 03/07/2018 V1 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 ([facility]/HCC) 03/19/2018 DIANNA PELLETIER V2 379782 Psychiatric LUDA~PLOMTI Evaluation 03/19/2018 DIANNA PELLETIER V2 244229 Psychiatric LUDA~PLOMTI Evaluation 03/19/2018 DIANNA PELLETIER V2 [id number] Psychiatric LUDA~PLOMTI Evaluation 03/19/2018 DIANNA PELLETIER V1 E03.9 Hypothyroidism, LUDA~PLOMTI unspecified 03/19/2018 DIANNA PELLETIER V1 R46.89 Other symptoms LUDA~PLOMTI and signs involving appearance and behavior 03/19/2018 DIANNA PELLETIER V1 E03.9 Hypothyroidism, LUDA~PLOMTI unspecified 03/19/2018 RUFINO PELLETIERN V1 R46.89 Other symptoms LUDA~PLOMTI and signs involving appearance and behavior 03/19/2018 DIANNA PELLETIER V1 E03.9 Hypothyroidism, LUDA~PLOMTI unspecified 03/19/2018 DIANNA PELLETIER V1 R46.89 Other symptoms LUDA~PLOMTI and signs involving appearance and behavior 03/25/2018 COFFEY, DAVEY V2 569934 Aggressive Behavior 03/25/2018 COFFEY, DAVEY V2 30 Dementia 03/25/2018 SARINA, DAVEY V2 554577 Aggressive Behavior 03/25/2018 COFFEY, DAVEY V2 30 Dementia 03/25/2018 SARINA, DAVEY V2 774150 Aggressive Behavior 03/25/2018 COFFEY, DAVEY V2 30 Dementia 03/25/2018 COFFEY, DAVEY V2 719312 Aggressive Behavior 03/25/2018 COFFEY, DAVEY V2 30 Dementia 03/25/2018 COFFEY DAVEY V1 F01.51 Vascular dementia with behavioral disturbance 03/25/2018 COFFEY DAVEY V1 R41.0 Disorientation, unspecified 03/25/2018 COFFEYNATHANAH V1 S09.90XA Unspecified injury of head, initial encounter 03/25/2018 SARINA DAVEY V1 F01.51 Vascular dementia with behavioral disturbance 03/25/2018 COFFEY DAVEY V1 R41.0 Disorientation, unspecified 03/25/2018 COFFEY DAVEY V1 S09.90XA Unspecified injury of head, initial encounter 03/25/2018 SARINA DAVEY V1 F01.51 Vascular dementia with behavioral disturbance 03/25/2018 COFFEY DAVEY V1 R41.0 Disorientation, unspecified 03/25/2018 COFFEY DAVEY V1 S09.90XA Unspecified injury of head, initial encounter Procedures There is no data.<section xmlns="urn:hl7-org:v3" xmlns:xsi=" http://www.w3.org/2001/XMLSchema-instance"> <templateId root=" [id number]" /> <templateId root=" [id number]" /> <code codeSystemName=" LOINC" codeSystem="[id number]" code="81660-7&quot ; displayName="Results" /> <title>Results</title> &lt ;text> <table> <thead> <tr> <th& gt;Test</th> <th>Result</th> <th>Range </th> </tr> </thead> <tbody> &lt ;tr> <th colspan="10">CBC WITH DIFFERENTIAL REFLEX MANUAL DIFF - 05/05/17 14:06</th> </tr> <tr> <td>WBC</td> <td>10.5 10*3/uL</td> <td>4.0-9.6</td> </tr> <tr> < td>RBC</td> <td>4.65 10*6/uL</td> <td& gt;4.40-5.89</td> </tr> <tr> <td> HEMOGLOBIN</td> <td>14.5 g/dL</td> <td&gt ;13.9-17.4</td> </tr> <tr> <td>HEMATOCRIT </td> <td>43.1 %</td> <td>40.6 -50.3</td> </tr> <tr> <td> PLATELET COUNT</td> <td>176 10*3/uL</td> < td>150-400</td> </tr> <tr> <td>MCV </td> <td>93 fL</td> <td>81-99</td& gt; </tr> <tr> <td>MCH</td> <td>31.2 pg</td> <td>26.7-34.1</td> </tr> <tr> <td>MCHC</td> < td>33.6 g/dL</td> <td>31.0-36.1</td> </ tr> <tr> <td>MPV</td> <td> 10.4 fL</td> <td /> </tr> <tr> <td>ABSOLUTE NEUTROPHIL</td> <td>6.89 10*3/uL </td> <td>1.70-6.40</td> </tr> & lt;tr> <td>ABSOLUTE LYMPHOCYTE</td> <td> 1.9 10*3/uL</td> <td>1.1-3.5</td> </tr> <tr> <td>ABSOLUTE MONOCYTE</td> < td>1.1 10*3/uL</td> <td>0.3-0.9</td> </ tr> <tr> <td>ABSOLUTE EOSINOPHIL</td> <td>0.4 10*3/uL</td> <td>0.0-0.6</td> </tr> <tr> <td>ABSOLUTE BASOPHIL</td&gt ; <td>0.1 10*3/uL</td> <td>0.0-0.1</td> </tr> <tr> <td>NEUTROPHILS</td> <td>66 %</td> <td /> </tr> <tr> <td>LYMPHOCYTE</td> <td>18 %</ td> <td /> </tr> <tr> <td> MONOCYTE</td> <td>11 %</td> <td / > </tr> <tr> <td>EOSINOPHIL</td> <td>4 %</td> <td /> </tr& gt; <tr> <td>BASOPHIL</td> <td> 1 %</td> <td /> </tr> <tr> <td>NUCLEATED RBC % AUTO</td> <td>0 / 100 WBCs</td> <td /> </tr> <tr> <td>ABSOLUTE IMMATURE GRANULOCYTES</td> <td> 0.08 10*3/uL</td> <td><0.1</td> </tr > <tr> <td>IMMATURE GRANULOCYTES</td> <td>0.8 %</td> <td /> </tr&gt ; <tr> <td>RDW-SD</td> <td> 46.1 fL</td> <td>37.5-47.8</td> </tr> <tr> <th colspan="10">PROTIME - 05/05/17 14 :06</th> </tr> <tr> <td> PROTHROMBIN TIME (PT)</td> <td>11.2 seconds</td> <td>9.3-11.7</td> </tr> <tr> <td>INR</td> <td>1.1 </td> <td& gt;0.9-1.1</td> </tr> <tr> <th colspan="10">AMMONIA - 05/05/17 14:06</th> </tr&gt ; <tr> <td>AMMONIA</td> <td>24 umol/ L</td> <td>0-49</td> </tr> <tr > <th colspan="10">TROPONIN I - 05/05/17 14:06</ th> </tr> <tr> <td>TROPONIN I</td > <td>0.030 ng/mL</td> <td>0.000-0.045&lt ;/td> </tr> <tr> <th colspan="10& quot;>URINE MICROSCOPIC - 05/05/17 14:14</th> </tr> <tr> <td>WBC, URINE</td> <td>0-2 / HPF</td> <td /> </tr> <tr> <td>RBC, URINE</td> <td>0-2 /HPF</td> <td /> </tr> <tr> <td> BACTERIA, URINE</td> <td>None Seen /HPF</td> <td /> </tr> <tr> <td>SQUAMOUS CELLS</td> <td>0-5 /LPF</td> <td /> </tr><tr> <td>MUCUS THREADS, URINE</td> <td>1+ /LPF</td> <td /> </tr> <tr> <th colspan="10">URINE CULTURE - 14:14</th> </tr> <tr> <td> Microbiology</td> <td> </td> <td /> </tr> <tr> <th colspan="10"> PROTIME - 05/21/17 10:16</th> </tr> <tr> <td>PROTHROMBIN TIME (PT)</td> <td>10.8 seconds&lt ;/td> <td>9.3-11.7</td> </tr> <tr > <td>INR</td> <td>1.0 </td> < td>0.9-1.1</td> </tr> <tr> <th colspan="10">CBC WITH DIFFERENTIAL REFLEX MANUAL DIFF - 05/21/17 10 :17</th> </tr> <tr> <td>WBC</ td> <td>10.2 10*3/uL</td> <td>4.0-9.6< /td> </tr> <tr> <td>RBC</td> <td>4.81 10*6/uL</td> <td>4.40-5.89</td> </tr> <tr> <td>HEMOGLOBIN</td> <td>14.8 g/dL</td> <td>13.9-17.4</td> </tr> <tr> <td>HEMATOCRIT</td> <td>43.8 %</td> <td>40.6-50.3</td& gt; </tr> <tr> <td>PLATELET COUNT</ td> <td>167 10*3/uL</td> <td>150-400</ td> </tr> <tr> <td>MCV</td> <td>91 fL</td> <td>81-99</td> </ tr> <tr> <td>MCH</td> <td> 30.8 pg</td> <td>26.7-34.1</td> </tr> <tr> <td>MCHC</td> <td>33.8 g/dL </td> <td>31.0-36.1</td> </tr> & lt;tr> <td>MPV</td> <td>10.1 fL</td&gt ; <td /> </tr> <tr> <td> ABSOLUTE NEUTROPHIL</td> <td>6.92 10*3/uL</td> <td>1.70-6.40</td> </tr> <tr> <td>ABSOLUTE LYMPHOCYTE</td> <td>1.5 10*3/uL</td > <td>1.1-3.5</td> </tr> <tr> <td>ABSOLUTE MONOCYTE</td> <td>1.1 10*3/uL</td&gt ; <td>0.3-0.9</td></tr> <tr> & lt;td>ABSOLUTE EOSINOPHIL</td> <td>0.5 10*3/uL</td&gt ; <td>0.0-0.6</td> </tr> <tr> <td>ABSOLUTE BASOPHIL</td> <td>0.1 10*3/uL</td&gt ; <td>0.0-0.1</td> </tr> <tr> <td>NEUTROPHILS</td> <td>68 %</td&gt ; <td /> </tr> <tr> <td> LYMPHOCYTE</td> <td>15 %</td> <td /> </tr> <tr> <td>MONOCYTE</td&gt ; <td>11 %</td> <td /> </ tr> <tr> <td>EOSINOPHIL</td> < td>5 %</td> <td /> </tr> &lt ;tr> <td>BASOPHIL</td> <td>1 %&lt ;/td> <td /> </tr> <tr> &lt ;td>NUCLEATED RBC % AUTO</td> <td>0 /100 WBCs&lt ;/td> <td /> </tr> <tr> &lt ;td>ABSOLUTE IMMATURE GRANULOCYTES</td> <td>0.08 10*3/uL </td> <td><0.1</td> </tr> <tr> <td>IMMATURE GRANULOCYTES</td> <td& gt;0.8 %</td> <td /> </tr> <tr&gt ; <td>RDW-SD</td><td>44.8 fL</td> < td>37.5-47.8</td> </tr> <tr> <th colspan="10">LACTATE, VENOUS - 05/21/17 10:17</th> &lt ;/tr> <tr> <td>LACTATE, VENOUS</td> <td>2.2 mmol/L</td> <td>0.4-2.0</td> </tr> <tr> <th colspan="10">BNP PROBRAIN NATRIURETIC PEPT - 05/21/17 10:17</th> </tr> <tr> <td>BNP PROBRAIN NATRIURETIC PEPT</td> <td>286 pg/mL</td> <td><=450</td> </tr> <tr> <th colspan="10">DRUG SCREEN, URINE - 05/21/17 11:57</th> </tr> <tr> <td>AMPHETAMINE SCREEN,URINE</td> <td>None Detected </td> <td>None Detected</td> </tr& gt; <tr> <td>BARBITURATES SCREEN,URINE</td> <td>None Detected </td> <td>None Detected< /td> </tr> <tr> <td>BENZODIAZEPINES SCREEN,URINE</td> <td>None Detected </td> & lt;td>None Detected</td> </tr> <tr> <td>CANNABINOID SCREEN, URINE</td> <td>None Detected </td> <td>None Detected</td> </tr> <tr> <td>COCAINE SCREEN, URINE</td> <td >None Detected </td> <td>None Detected</td> </tr> <tr> <td>ECSTASY (MDMA) SCRN UR</td > <td>None Detected </td> <td>None Detected</td> </tr> <tr> <td> OPIATE SCREEN, URINE</td> <td>None Detected </td> <td>None Detected</td> </tr> <tr> <th colspan="10">URINE CULTURE - 08/02/17 18:08</th> </tr> <tr> <td>Microbiology</td> <td> </td> <td /></tr> <tr&gt ; <th colspan="10">CBC WITH DIFFERENTIAL REFLEXMANUAL DIFF - 12/02/17 22:47</th> </tr> <tr> & lt;td>WBC</td> <td>8.5 10*3/uL</td> < td>4.0-9.6</td> </tr> <tr> <td&gt ;RBC</td> <td>4.95 10*6/uL</td> <td> 4.40-5.89</td> </tr> <tr> <td> HEMOGLOBIN</td> <td>14.7 g/dL</td> <td&gt ;13.9-17.4</td> </tr> <tr> <td> HEMATOCRIT</td> <td>44.4 %</td> < td>40.6-50.3</td> </tr> <tr> <td> PLATELET COUNT</td> <td>152 10*3/uL</td> &lt ;td>150-400</td> </tr> <tr> <td& gt;MCV</td> <td>90 fL</td> <td>81-99& lt;/td> </tr> <tr> <td>MCH</td> <td>29.7 pg</td> <td>26.7-34.1</td> </tr> <tr> <td>MCHC</td> <td>33.1 g/dL</td> <td>31.0-36.1</td> & lt;/tr> <tr> <td>MPV</td> <td> 10.1 fL</td> <td /> </tr> <tr> <td>ABSOLUTE NEUTROPHIL</td> <td>6.02 10*3/uL </td> <td>1.70-6.40</td> </tr> & lt;tr> <td>ABSOLUTE LYMPHOCYTE</td> <td>1.1 10*3 /uL</td> <td>1.1-3.5</td> </tr> & lt;tr> <td>ABSOLUTE MONOCYTE</td> <td> 1.0 10*3/uL</td> <td>0.3-0.9</td> </tr> <tr> <td>ABSOLUTE EOSINOPHIL</td> & lt;td>0.3 10*3/uL</td> <td>0.0-0.6</td> &lt ;/tr> <tr> <td>ABSOLUTE BASOPHIL</td> <td>0.1 10*3/uL</td> <td>0.0-0.1</td> </tr> <tr> <td>NEUTROPHILS</td> &lt ;td>71 %</td> <td /> </tr> & lt;tr> <td>LYMPHOCYTE</td> <td>13 %</ td> <td /> </tr> <tr> <td& gt;MONOCYTE</td> <td>12 %</td> < td /> </tr> <tr> <td>EOSINOPHIL</ td> <td>3 %</td> <td /> & lt;/tr> <tr> <td>BASOPHIL</td> <td >1 %</td> <td /> </tr> <tr&gt ; <td>NUCLEATED RBC % AUTO</td> <td> 0 /100 WBCs</td> <td /> </tr> <tr> <td>ABSOLUTE IMMATURE GRANULOCYTES</td> <td> 0.03 10*3/uL</td> <td><0.1</td> </tr > <tr> <td>IMMATURE GRANULOCYTES</td> &lt ;td>0.4 %</td> <td /> </tr> <tr> <td>RDW-SD</td> <td>45.3 fL</ td> <td>37.5-47.8</td> </tr> <tr& gt; <th colspan="10">LACTATE, VENOUS - 12/02/17 22:47</ th> </tr> <tr> <td>LACTATE, VENOUS& lt;/td> <td>2.5 mmol/L</td> <td>0.4-2.0& lt;/td> </tr> <tr> <th colspan="10 ">COMPREHENSIVE METABLIC GROUP - 12/02/17 22:47</th> </ tr> <tr> <td>SODIUM</td> <td> 137 mmol/L</td> <td>136-145</td> </tr> &lt ;tr> <td>POTASSIUM</td> <td>4.5 mmol/L&lt ;/td> <td>3.5-5.1</td> </tr> <tr& gt; <td>CHLORIDE</td> <td>101 mmol/L</td& gt; <td>96-111</td> </tr> <tr> <td>CARBON DIOXIDE</td> <td>26 mmol/L</td& gt; <td>20-30</td></tr> <tr> & lt;td>ANION GAP</td> <td>15 </td> <td& gt;6-18</td> </tr> <tr> <td> BLOOD UREA NITROGEN</td> <td>29 mg/dL</td> & lt;td>6-24</td> </tr> <tr> <td>BUN /CREATININE RATIO</td> <td>17 </td> <td& gt;6-25</td> </tr> <tr> <td> GLOMERULAR FILTRATION RATE</td> <td>36.0 mL/min/1.73m*2< /td> <td>>60.0</td> </tr> <tr&gt ; <td>GLUCOSE</td> <td>132 mg/dL</td> <td>70-99</td> </tr> <tr> <td>CALCIUM</td> <td>8.8 mg/dL</td> <td>8.3-10.1</td> </tr> <tr> & lt;td>BILIRUBIN, TOTAL</td> <td>0.6 mg/dL</td> <td>0.2-1.2</td> </tr> <tr> <td>AST/SGOT</td> <td>22 U/L</td> & lt;td>7-37</td> </tr> <tr> <td&gt ;ALT/SGPT</td> <td>23 U/L</td> <td>12- 78</td> </tr> <tr> <td>PROTEIN, TOTAL BLOOD</td> <td>7.1 g/dL</td> <td>6.4- 8.2</td> </tr> <tr> <td>ALBUMIN</td& gt; <td>3.6 g/dL</td> <td>3.2-4.6</td&gt ; </tr> <tr> <td>GLOBULIN [CALCULATED]& lt;/td> <td>3.5 g/dL</td> <td>2.2-4.2</td& gt; </tr> <tr> <td>ALBUMIN/GLOBULIN RATIO</td> <td>1.0 </td> <td>0.8-2.0</td > </tr> <tr> <td>ALKALINE PHOSPHATASE</td> <td>98 U/L</td> <td> 20-125</td> </tr> <tr> <td>Creatinine&lt ;/td> <td>1.69 mg/dL</td> <td>0.65-1.36& lt;/td> </tr> <tr> <th colspan="10 ">GLUCOSE (POC) - 03/19/18 12:39</th> </tr> & lt;tr> <td>Glucose Meter (POC)</td> <td> 111 mg/dL</td> <td>70-99</td> </tr> & lt;tr> <th colspan="10">CBC WITH DIFFERENTIAL REFLEX MANUAL DIFF - 03/19/18 12:53</th> </tr> <tr&gt ; <td>WBC</td> <td>10.2 10*3/uL</td> & lt;td>4.0-9.6</td> </tr> <tr> <td >RBC</td> <td>5.06 10*6/uL</td> <td> 4.40-5.89</td> </tr> <tr> <td> HEMOGLOBIN</td> <td>14.8 g/dL</td> <td> 13.9-17.4</td> </tr> <tr> <td> HEMATOCRIT</td> <td>44.6 %</td> < td>40.6-50.3</td> </tr> <tr> <td& gt;PLATELET COUNT</td> <td>160 10*3/uL</td> <td>150-400</td> </tr> <tr> <td&gt ;MCV</td> <td>88 fL</td> <td>81-99< /td> </tr> <tr> <td>MCH</td> <td>29.2 pg</td> <td>26.7-34.1</td> </tr> <tr> <td>MCHC</td> <td>33.2 g/dL</td> <td>31.0-36.1</td> &lt ;/tr> <tr> <td>MPV</td> <td> 10.0 fL</td> <td /> </tr> <tr> <td>ABSOLUTE NEUTROPHIL</td> <td>7.19 10*3/uL </td> <td>1.70-6.40</td> </tr> < tr> <td>ABSOLUTE LYMPHOCYTE</td> <td>1.7 10*3/uL</td> <td>1.1-3.5</td> </tr> <tr> <td>ABSOLUTE MONOCYTE</td> <td&gt ;0.9 10*3/uL</td> <td>0.3-0.9</td> </tr&gt ; <tr> <td>ABSOLUTE EOSINOPHIL</td> & lt;td>0.3 10*3/uL</td> <td>0.0-0.6</td> &lt ;/tr> <tr> <td>ABSOLUTE BASOPHIL</td> <td>0.0 10*3/uL</td> <td>0.0-0.1</td> </tr> <tr> <td>NEUTROPHILS</td> < td>71 %</td> <td /> </tr> < tr> <td>LYMPHOCYTE</td> <td>16 %& lt;/td> <td /> </tr> <tr> & lt;td>MONOCYTE</td> <td>9 %</td> <td /> </tr> <tr> <td>EOSINOPHIL</ td> <td>3 %</td> <td /> </ tr> <tr> <td>BASOPHIL</td> <td>0 & amp;#37;</td> <td /> </tr> <tr> <td>NUCLEATED RBC % AUTO</td> <td>0 /100 WBCs</td> <td /> </tr> <tr> &lt ;td>ABSOLUTE IMMATURE GRANULOCYTES</td> <td>0.06 10*3/uL </td> <td><0.1</td> </tr> < tr> <td>IMMATURE GRANULOCYTES</td> <td> 0.6 %</td> <td /> </tr> <tr& gt; <td>RDW-SD</td> <td>44.3 fL</td> <td>37.5-47.8</td> </tr> <tr> <th colspan="10">COMPREHENSIVE METABLIC GROUP - 03/19/18 12:53</th> </tr> <tr> <td>SODIUM& lt;/td> <td>137 mmol/L</td> <td>136-145& lt;/td> </tr> <tr> <td>POTASSIUM< /td> <td>3.9 mmol/L</td> <td>3.5-5.1</ td> </tr> <tr> <td>CHLORIDE</td& gt; <td>104 mmol/L</td> <td>96-111</td&gt ; </tr> <tr> <td>CARBON DIOXIDE</td> <td>23 mmol/L</td> <td>20-30</td> </tr> <tr> <td>ANION GAP</td> <td>14 </td> <td>6-18</td> </tr> <tr> <td>BLOOD UREA NITROGEN</td> <td& gt;18 mg/dL</td> <td>6-24</td> </tr> <tr><td>BUN/CREATININE RATIO</td> <td>16 & lt;/td> <td>6-25</td> </tr> <tr& gt; <td>GLOMERULAR FILTRATION RATE</td> <td> 57.9 mL/min</td> <td>>60.0</td> </tr > <tr> <td>GLUCOSE</td> <td> 120 mg/dL</td> <td>70-99</td> </tr> <tr> <td>CALCIUM</td> <td>9.0 mg/ dL</td> <td>8.3-10.1</td> </tr> & lt;tr> <td>BILIRUBIN, TOTAL</td> <td>0.4 mg/dL</td> <td>0.2-1.2</td> </tr> <tr> <td>AST/SGOT</td> <td>26 U/L&lt ;/td> <td>7-37</td> </tr> <tr> <td>ALT/SGPT</td> <td>22 U/L</td> <td>12-78</td> </tr> <tr> < td>PROTEIN, TOTAL BLOOD</td> <td>7.2 g/dL</td> <td>6.4-8.2</td> </tr> <tr> <td>ALBUMIN</td> <td>3.6 g/dL</td> <td>3.2-4.6</td> </tr> <tr> <td> GLOBULIN [CALCULATED]</td> <td>3.6 g/dL</td> <td>2.2-4.2</td> </tr> <tr> &lt ;td>ALBUMIN/GLOBULIN RATIO</td> <td>1.0 </td> <td>0.8-2.0</td> </tr> <tr> <td>ALKALINE PHOSPHATASE</td> <td>97 U/L</td&gt ; <td>20-125</td> </tr> <tr> <td>Creatinine</td> <td>1.14 mg/dL</td> <td>0.65-1.36</td> </tr> <tr> <th colspan="10">CBC WITH DIFFERENTIAL REFLEX MANUAL DIFF - 03/25/18 03:05</th> </tr> <tr> & lt;td>WBC</td> <td>7.4 10*3/uL</td> < td>4.0-9.6</td> </tr> <tr> <td>RBC </td> <td>4.47 10*6/uL</td> <td>4.40- 5.89</td> </tr> <tr> <td> HEMOGLOBIN</td> <td>13.2 g/dL</td> <td&gt ;13.9-17.4</td> </tr> <tr> <td> HEMATOCRIT</td> <td>39.7 %</td> < td>40.6-50.3</td> </tr> <tr> <td& gt;PLATELET COUNT</td> <td>140 10*3/uL</td> <td>150-400</td> </tr> <tr> < td>MCV</td> <td>89 fL</td> <td>81-99& lt;/td> </tr> <tr> <td>MCH</td&gt ; <td>29.5 pg</td> <td>26.7-34.1</td> </tr> <tr> <td>MCHC</td> <td>33.2 g/dL</td> <td>31.0-36.1</td> </tr> <tr> <td>MPV</td> < td>9.9 fL</td> <td /> </tr> <tr> <td>ABSOLUTE NEUTROPHIL</td> <td>4.85 10*3/uL </td> <td>1.70-6.40</td> </tr> & lt;tr> <td>ABSOLUTE LYMPHOCYTE</td> <td> 1.3 10*3/uL</td> <td>1.1-3.5</td> </tr> & lt;tr> <td>ABSOLUTE MONOCYTE</td> <td> 0.9 10*3/uL</td> <td>0.3-0.9</td></tr> & lt;tr> <td>ABSOLUTE EOSINOPHIL</td> <td> 0.3 10*3/uL</td> <td>0.0-0.6</td> </tr> <tr> <td>ABSOLUTE BASOPHIL</td> <td> 0.1 10*3/uL</td> <td>0.0-0.1</td> </tr> <tr> <td>NEUTROPHILS</td> <td> 66 %</td> <td /> </tr> <tr& gt; <td>LYMPHOCYTE</td> <td>18 %< /td> <td/> </tr> <tr> < td>MONOCYTE</td> <td>12 %</td> & lt;td /> </tr> <tr> <td>EOSINOPHIL& lt;/td> <td>4 %</td> <td /> </tr> <tr> <td>BASOPHIL</td> <td>1 %</td> <td /> </tr> <tr> <td>NUCLEATED RBC % AUTO</td> <td>0 /100 WBCs</td> <td /> </tr> <tr> <td>ABSOLUTE IMMATURE GRANULOCYTES</td> <td>0.02 10*3/uL</td> <td><0.1</td& gt; </tr> <tr> <td>IMMATURE GRANULOCYTES</td> <td>0.3 %</td> <td / > </tr> <tr> <td>RDW-SD</td>& lt;td>46.7 fL</td> <td>37.5-47.8</td> </ tr> <tr> <th colspan="10">PROTIME - 03:05</th> </tr> <tr> <td> PROTHROMBIN TIME (PT)</td> <td>11.4 seconds</td> <td>9.3-11.7</td> </tr> <tr> <td>INR</td> <td>1.1 </td> <td& gt;0.9-1.1</td> </tr> <tr> <th colspan=& quot;10">AMMONIA - 03/25/18 03:05</th> </tr> & lt;tr> <td>AMMONIA</td> <td>14 umol/L< /td> <td>0-49</td> </tr> <tr> <th colspan="10">DIGOXIN - 03/25/18 03:05</th> & lt;/tr> <tr> <td>DIGOXIN</td> < td>0.7 ng/mL</td> <td>0.9-2.0</td> </tr& gt; <tr> <th colspan="10">L100.0050 - 09/19 14:09</th> </tr> <tr> <td> WBC - WHITE BLOOD COUNT</td> <td>11.5 T/MM3</td> <td>4.5-11.0</td> </tr> <tr> <td>RED BLOOD COUNT</td> <td>5.15 M/MM3</td&gt ; <td>4.50-5.90</td> </tr> <tr> <td>HGB - HEMOGLOBIN</td> <td>15.1 GM/DL< /td> <td>13.5-17.5</td> </tr> <tr> <td>HCT - HEMATOCRIT</td> <td>45.9 %& lt;/td> <td>41-53</td> </tr> <tr> <td>MEAN CORPUSCULAR VOLUME</td> <td>89.1 UM3</td> <td>80-100</td> </tr> & lt;tr> <td>MEAN CORPUSCULAR HGB</td> <td> 29.3 UUG</td> <td>26-34</td> </tr> <tr> <td>MEAN CORPUSCULAR HGB CONC(MCHC</td> <td>32.9 GM/DL</td> <td>31-37</td> </ tr> <tr> <td>RDW STANDARD DEVIATION</td> <td>49.7 FL</td> <td>36.9-50.2</td> </tr> <tr> <td>PLT - PLATELET COUNT</td& gt; <td>203 T/MM3</td> <td>130-400</td&gt ; </tr> <tr> <td>MEAN PLATELET VOLUME& lt;/td> <td>10.3 UM3</td> <td>9.4-12.4&lt ;/td> </tr> <tr> <td>NEUTROPHILS & amp;#37; (AUTO)</td> <td>75.6 %</td> <td>33-66</td> </tr> <tr> < td>LYMPHOCYTES % (AUTO)</td> <td>10.8 %& lt;/td> <td>23-45</td> </tr> <tr& gt; <td>MONOCYTES % (AUTO)</td> <td> 12.0 %</td> <td>0-9.0</td> </tr&gt ; <tr> <td>EOSINOPHILS % (AUTO)</td> <td>1.0 %</td> <td>0-4</td> </tr> <tr> <td>BASOPHILS % (AUTO )</td> <td>0.2 %</td> <td>0-2& lt;/td> </tr> <tr> <td>IMMATURE GRANULOCYTE % (AUTO)</td> <td>0.4 %</td& gt; <td>0.0-0.5</td> </tr> <tr> <td>NEUTROPHILS # (AUTO)</td> <td>8.7 T/MM3& lt;/td> <td>1.8-7.7</td> </tr> < tr> <td>LYMPHOCYTES # (AUTO)</td> <td>1.2 T/MM3& lt;/td> <td>1-4.8</td> </tr> <tr& gt; <td>MONOCYTES # (AUTO)</td> <td>1.4 T/ MM3</td> <td>0-0.8</td> </tr> <tr&gt ; <td>EOSINOPHILS # (AUTO)</td> <td>0.1 T/ MM3</td> <td>0-0.5</td> </tr> &lt ;tr> <td>BASOPHILS # (AUTO)</td> <td>0.0T /MM3</td> <td>0-0.2</td> </tr> & lt;tr> <td>IMMATURE GRANULOCYTE # (AUTO)</td> & lt;td>0.05 T/MM3</td> <td>0.00-0.03</td> & lt;/tr> <tr> <th colspan="10"> L200.0020 - 04/13/18 14:09</th> </tr> <tr> <td>FUNGAL CULTURE.</td> <td>1.1 mg/dL</td&gt ; <td>0.8-1.5</td> </tr> <tr> <td>FUNGAL CULTURE, BLOOD.</td> <td>33 RATIO</td&gt ; <td>6-26</td> </tr> <tr> <td>NA - Sodium</td> <td>143 MEQ/L</td> <td>136-146</td> </tr> <tr> <td>Potassium</td> <td>4.2 MEQ/L</td> <td>3.6-5</td> </tr> <tr> <td& gt;Chloride</td> <td>104 MEQ/L</td> <td& gt;98-107</td> </tr> <tr> <td> CO2 - Carbon Dioxide</td> <td>26 MEQ/L</td> <td>22-30</td> </tr> <tr> <td& gt;Anion Gap</td> <td>13 meq/L</td> <td& gt;5-15</td> </tr> <tr> <td>BUN - Blood Urea Nitrogen</td> <td>36.0 MG/DL</td> <td>9-20</td> </tr> <tr> < td>Glomerular Filtration Rate</td> <td>63 </td> <td>NRG</td> </tr> <tr> <td& gt;Glucose</td> <td>112 MG/DL</td> <td&gt ;75-110</td> </tr> <tr> <td> Osmolality,Calculated</td> <td>284 MOSM/KG</td> <td>261-280</td> </tr> <tr> & lt;td>Calcium</td> <td>9.7 MG/DL</td> <td&gt ;8.4-10.2</td> </tr> <tr> <td> Bilirubin,Total</td> <td>0.70 MG/DL</td> &lt ;td>0.20-1.30</td> </tr> <tr> <td> Alkaline Phosphatase</td> <td>103 U/L</td> & lt;td>38-126</td> </tr> <tr> <td>AST - Aspartate Amino Transfer</td> <td>27 U/L</td><td >17-59</td> </tr> <tr> <td>TP - Total Protein</td> <td>7.2 g/dL</td> < td>6.3-8.2</td> </tr> <tr> <td&gt ;Albumin Level</td> <td>3.9 g/dL</td> <td >3.5-5.0</td> </tr> <tr> <td> Globulin</td> <td>3.3 G/DL</td> <td> 2.4-3.6</td> </tr> <tr> <td>Albumin/ Globulin Ratio</td> <td>1.2 RATIO</td> < td>1.1-2.2</td> </tr> <tr> <td> LICTERUS</td> <td>< 2 </td> <td&gt ;0-7</td> </tr> <tr> <td> LHEMOLYSIS</td> <td>< 15 </td> <td >0-25</td> </tr> <tr> <td> LTURBIDITY</td> <td>< 20 </td> <td >0-20</td> </tr> <tr> <td> LALTV</td> <td>15 U/L</td> <td>1-50</td&gt ; </tr> <tr> <th colspan="10"&gt ;L300.3490 - 04/13/18 14:09</th> </tr> <tr> <td>Troponin I</td> <td>< 0.012 ng/ml< /td> <td>0-0.12</td> </tr> <tr&gt ; <th colspan="10">L600.0100 - 04/13/18 16:51</th&gt ; </tr> <tr> <td>POTASSIUM</td> <td>Urine, Void-CC/notCC </td> <td>NRG</td& gt; </tr> <tr> <td>CHLORIDE</td> <td>YELLOW </td> <td>YELLOW</td> </tr> <tr> <td>ANION GAP</td> & lt;td>CLEAR </td> <td>NRG</td> </tr> <tr> <td>BLOOD UREA NITROGEN</td> & lt;td>5.5 </td> <td>5.0-8.0</td> </tr&gt ; <tr> <td>BUN/CREATININE RATIO</td> < td>NEGATIVE </td> <td>NEGATIVE</td> </tr > <tr> <td>GLUCOSE</td> <td> NEGATIVE </td> <td>NEGATIVE</td> </tr> <tr> <td>CALCIUM</td> <td>NEGATIVE &lt ;/td> <td>NEGATIVE</td> </tr> <tr > <td>BILIRUBIN, CONJUG &amp; UNCONJUG</td> <td>NEGATIVE </td> <td>NEGATIVE</td> < /tr> <tr> <td>Specific [place],Urine</td> <td>1.020 </td> <td>1.015-1.025</td> </tr> <tr> <td>Leukocyte Esterase,Urine& lt;/td><td>NEGATIVE </td> <td>NEGATIVE</td> </tr> <tr> <td>Nitrate,Urine</td&gt ; <td>NEGATIVE </td> <td>NEGATIVE</td&gt ; </tr> <tr> <td>Urobilinogen,Urine< /td> <td>0.2 EU/DL</td> <td>NORMAL</td > </tr> <tr> <td>Occult Blood,Urine - Dipstick</td> <td>TRACE-LYSED </td> <td >NEGATIVE</td> </tr> <tr> <td> Urine Microscopic (UA)</td> <td>Microscopic Not Ind. </ td> <td>NRG</td> </tr> <tr> <th colspan="10">L200.2066 - 04/13/18 17:18</th> </tr> <tr> <td>Lactate</td> < td>0.9 MMOL/L</td> <td>0.6-2.2</td> </tr > <tr> <th colspan="10">M110.0180 - 09/19 17:21</th> </tr> <tr> <td> ANTI-D</td> <td>Culture Initiated - Results Pending </td&gt ; <td>NRG</td> </tr> <tr> & lt;th colspan="10">L200.2067 - 04/13/18 20:22</th> &lt ;/tr> <tr> <td>Lactate</td> <td >0.9 MMOL/L</td> <td>0.6-2.2</td> </tr& gt; <tr> <th colspan="10">L100.0075 - 06:02</th> </tr> <tr> <td> WBC - WHITE BLOOD COUNT</td> <td>9.1 T/MM3</td> <td>4.5-11.0</td> </tr> <tr> <td>RED BLOOD COUNT</td> <td>4.85 M/MM3</td> <td>4.50-5.90</td> </tr> <tr> <td>HGB - HEMOGLOBIN</td> <td>14.2 GM/DL</td&gt ; <td>13.5-17.5</td> </tr> <tr> <td>HCT - HEMATOCRIT</td> <td>43.5 %</ td> <td>41-53</td> </tr> <tr> <td>MEANCORPUSCULAR VOLUME</td> <td>89.7 UM3</td> <td>80-100</td> </tr> & lt;tr> <td>MEAN CORPUSCULAR HGB</td> <td>29.3 UUG& lt;/td> <td>26-34</td> </tr> <tr& gt; <td>MEAN CORPUSCULAR HGB CONC(MCHC</td> <td >32.6 GM/DL</td> <td>31-37</td> </tr&gt ; <tr> <td>RDW STANDARD DEVIATION</td> <td>49.7 FL</td> <td>36.9-50.2</td> & lt;/tr> <tr> <td>PLT - PLATELET COUNT</td> <td>192 T/MM3</td> <td>130-400</td> & lt;/tr> <tr> <td>MEAN PLATELET VOLUME</td> <td>10.5 UM3</td> <td>9.4-12.4</td> </tr> <tr> <td>NEUTROPHILS % (MANUAL )</td> <td>65.0 %</td> <td>33- 66</td> </tr> <tr> <td> LYMPHOCYTES % (MANUAL)</td> <td>17.0 %</ td> <td>23-45</td> </tr> <tr> <td>MONOCYTES % (MANUAL)</td> <td> 9.0 %</td> <td>0-9.0</td> </tr> <tr> <td>EOSINOPHILS % (MANUAL)</td> <td>8.0 %</td> <td>0-4</td> </tr> <tr> <td>BASOPHILS % ( MANUAL)</td> <td>1.0 %</td> <td& gt;0-2</td> </tr> <tr> <td> PROLYMPHOCYTES %</td> <td>5.9 T/MM3</td> <td>1.8-7.7</td> </tr> <tr> &lt ;td>NEUTROPHILS # (MANUAL)</td> <td>0.8 T/MM3</td&gt ; <td>0-0.8</td> </tr> <tr> <td>MONOCYTES # (MANUAL)</td> <td>0.7 T/MM3</ td> <td>0-0.5</td> </tr> <tr> <td>BASOPHILS # (MANUAL)</td> <td>0.1 T/MM3</td& gt; <td>0-0.2</td> </tr> <tr> <td>Lymphocytes # (Manual)</td> <td>1.5 T/MM3& lt;/td> <td>1-4.8</td> </tr> <tr> <td>LRBCMOR</td> <td>Normal </td> <td>NRG</td> </tr> <tr> <th colspan="10">L200.0050 - 04/14/18 12:01</th></tr> <tr> <td>FUNGAL CULTURE.</td> <td> 1.0 mg/dL</td> <td>0.8-1.5</td> </tr> <tr> <td>FUNGAL CULTURE, BLOOD.</td> & lt;td>32 RATIO</td> <td>6-26</td> </tr& gt; <tr> <td>NA - Sodium</td> <td>147 MEQ/L</td> <td>136-146</td> </tr> <tr> <td>Potassium</td> <td>3.8 MEQ/ L</td> <td>3.6-5</td> </tr> < tr> <td>Chloride</td> <td>108 MEQ/L</td&gt ; <td>98-107</td> </tr> <tr> <td>CO2 - Carbon Dioxide</td> <td>27 MEQ/L</ td> <td>22-30</td> </tr> <tr> <td>Anion Gap</td> <td>12 meq/L</td> <td>5-15</td> </tr> <tr> <td>BUN - Blood Urea Nitrogen</td> <td>32.0MG/DL</ td> <td>9-20</td> </tr> <tr> <td>Glomerular Filtration Rate</td> <td>71 & lt;/td> <td>NRG</td> </tr> <tr&gt ; <td>Glucose</td> <td>91 MG/DL</td> <td>75-110</td> </tr> <tr> <td>Osmolality,Calculated</td> <td>289 MOSM/KG</td ><td>261-280</td> </tr> <tr> & lt;td>Calcium</td> <td>9.2 MG/DL</td> &lt ;td>8.4-10.2</td> </tr> <tr> <td& gt;LICTERUS</td> <td>< 2 </td> <td&gt ;0-7</td> </tr> <tr> <td> LHEMOLYSIS</td> <td>< 15 </td> <td >0-25</td> </tr> <tr> <td> LTURBIDITY</td> <td>< 20 </td> <td >0-20</td> </tr> <tr> <th colspan ="10">L200.236 - 04/14/18 12:01</th> </tr> <tr> <td>Vitamin B12 - Batch</td> <td>&amp ;gt; 1000 pg/mL</td> <td>239-931</td> </tr> <tr> <th colspan="10">L200.38504/14/18 12: 01</th> </tr> <tr> <td>TSH w Reflex T4 Free</td> <td>0.71 mIU/L</td> < td>0.47-4.68</td> </tr> <tr> <th colspan="10">L200.32004/14/18 12:01</th> </tr& gt; <tr> <td>Digoxin</td> <td> 0.8 ng/mL</td> <td>0.8-2.0</td> </tr> </tbody> </table> </text> <entry> < organizer moodCode="EVN" classCode="BATTERY"> < templateId root="[id number]" /> <id nullFlavor="NA" /> <code codeSystem="local" code= "[id number]" displayName="CBC WITH DIFFERENTIAL REFLEX MANUAL DIFF& quot; /> <statusCode code="completed" /> <component& gt; <observation moodCode="EVN" classCode="OBS"&gt ; <templateId root="[id number].2" /> <id nullFlavor="NA" /> <code codeSystem=& quot;local" code="WBC" displayName="WBC" /> <statusCode code="completed" /> <effectiveTime value="[id number]" /> <value unit="10*3/uL" xsi: type="PQ" value="10.5" /><interpretationCode codeSystem="local" code="H" /> < referenceRange> <observationRange> <text> 4.0-9.6</text></observationRange> </referenceRange> </observation> </component> <component> <observation moodCode="EVN" classCode="OBS"> <templateId root="[id number]..22.4.2" /> <id nullFlavor="NA" /> <code codeSystem=" local" code="RBC" displayName="RBC" /> < statusCode code="completed" /> <effectiveTime value=" [id number]" /> <value unit="10*6/uL" xsi:type=& quot;PQ" value="4.65" /> <referenceRange> <observationRange> <text>4.40-5.89</text> </observationRange> </referenceRange> & lt;/observation> </component> <component> < observation moodCode="EVN" classCode="OBS"> < templateId root="[id number].2" /> < id nullFlavor="NA" /> <code codeSystem="local&quot ; code="HGB" displayName="HEMOGLOBIN" /> < statusCode code="completed" /> <effectiveTime value=& quot;[id number]" /> <value unit="g/dL" xsi:type= "PQ" value="14.5" /> <referenceRange> <observationRange> <text>13.9-17.4</text> </observationRange> </referenceRange> & lt;/observation> </component> <component> < observation moodCode="EVN" classCode="OBS"> < templateId root="[id number].2" /> < id nullFlavor="NA" /> <code codeSystem="local" code=& quot;HCT" displayName="HEMATOCRIT" /> <statusCode code="completed" /> <effectiveTime value=" [id number]" /> <value unit="%" xsi:type= "PQ" value="43.1" /> <referenceRange> <observationRange> <text>40.6-50.3</text&gt ; </observationRange> </referenceRange> & lt;/observation> </component> <component> < observationmoodCode="EVN" classCode="OBS"> < templateId root="2.16.840.1.943535.10..22.4.2" /> < id nullFlavor="NA" /> <code codeSystem="local&quot ; code="PLT" displayName="PLATELET COUNT" />< statusCode code="completed" /> <effectiveTime value=& quot;354732882464" /> <value unit="10*3/uL" xsi: type="PQ" value="176"/> <referenceRange> <observationRange> <text>150-400</text&gt ; </observationRange> </referenceRange> & lt;/observation> </component> <component> < observation moodCode="EVN" classCode="OBS"> < templateId root="2.16.840.1.229700.10..22.4.2" /> < id nullFlavor="NA" /> <code codeSystem="local&quot ; code="MCV" displayName="MCV" /> < statusCode code="completed" /> <effectiveTime value=& quot;891686213329" /> <value unit="fL" xsi:type=& quot;PQ" value="93" /> <referenceRange> <observationRange> <text>81-99</text> </observationRange> </referenceRange> </ observation> </component> <component> < observation moodCode="EVN" classCode="OBS"> < templateId root="2.16.840.1.998491.10.20.22.4.2" /> < id nullFlavor="NA" /> <code codeSystem="local&quot ; code="MCH" displayName="MCH" /> < statusCode code="completed" /> <effectiveTime value=& quot;171656414132" /> <value unit="pg" xsi:type=& quot;PQ" value="31.2" /> <referenceRange> <observationRange> <text>26.7-34.1</text> </observationRange> </referenceRange> </ observation> </component> <component> < observation moodCode="EVN" classCode="OBS"> < templateId root="2.16.840.1.828424...22.4.2" /> < id nullFlavor="NA" /> <code codeSystem="local&quot ; code="MCHC" displayName="MCHC"/> < statusCode code="completed" /> <effectiveTime value=& quot;164956545193" /> <value unit="g/dL" xsi:type= "PQ" value="33.6" /> <referenceRange> <observationRange> <text>31.0-36.1</text&gt ; </observationRange> </referenceRange> & lt;/observation> </component> <component> < observationmoodCode="EVN" classCode="OBS"> < templateId root="2.16.840.1.491825.10.20.22.4.2" /> < id nullFlavor="NA" /> <code codeSystem="local&quot ; code="MPV" displayName="MPV" /> < statusCode code="completed" /> <effectiveTime value=& quot;263270060050" /> <value unit="fL" xsi:type=& quot;PQ" value="10.4" /><referenceRange> < observationRange> <text /> </ observationRange> </referenceRange> </observation&gt ; </component> <component> <observation moodCode ="EVN" classCode="OBS"> <templateId root=& quot;2.16.840.1.503119.10.20.22.4.2" /> <idnullFlavor=" NA" /> <code codeSystem="local" code=" NEUTROAB" displayName="ABSOLUTE NEUTROPHIL" /> < statusCode code="completed" /> <effectiveTime value=& quot;200517901743" /> <value unit="10*3/uL" xsi: type="PQ" value="6.89" /> < interpretationCode codeSystem="local" code="H" /> <referenceRange> <observationRange> < text>1.70-6.40</text> </observationRange> &lt ;/referenceRange> </observation> </component> & lt;component> <observation moodCode="EVN" classCode=&quot ;OBS"> <templateId root="2.16.840.1.498410.10.20.22.4.2 " /> <id nullFlavor="NA" /> <code codeSystem="local" code="LYMPAB" displayName="ABSOLUTE LYMPHOCYTE" /> <statusCode code="completed" />& lt;effectiveTime value="118547080911" /> <value unit=& quot;10*3/uL" xsi:type="PQ" value="1.9" /> <referenceRange> <observationRange> <text >1.1-3.5</text> </observationRange> </ referenceRange> </observation> </component> < component> <observation moodCode="EVN" classCode=" OBS"> <templateId root="2.16.840.1.176885.10.20.22.4.2& quot; /> <id nullFlavor="NA" /> <code codeSystem="local" code="MONOAB" displayName="ABSOLUTE MONOCYTE" /> <statusCode code="completed" /> <effectiveTime value="124206168680" /> < value unit="10*3/uL" xsi:type="PQ" value="1.1" /& gt; <interpretationCode codeSystem="local" code="H& quot; /> <referenceRange> <observationRange> <text>0.3-0.9</text> </observationRange> </referenceRange> </observation> </component&gt ; <component> <observation moodCode="EVN" classCode="OBS"> <templateId root=" 2.16.840.1.519755.10.20.22.4.2" /> <id nullFlavor="NA& quot; /> <code codeSystem="local" code="EOSAB&quot ; displayName="ABSOLUTE EOSINOPHIL" /> <statusCode code ="completed" /> <effectiveTime value="755996564148 " /> <value unit="10*3/uL" xsi:type="PQ&quot ; value="0.4" /> <referenceRange> < observationRange> <text>0.0-0.6</text> & lt;/observationRange> </referenceRange> </observation > </component> <component> <observation moodCode="EVN" classCode="OBS"> <templateId root="2.16.840.1.844786.10.20.22.4.2" /> <id nullFlavor ="NA" /> <code codeSystem="local" code=" BASOAB" displayName="ABSOLUTE BASOPHIL" /> <statusCode code="completed" /> <effectiveTime value=" 949096092931" /> <value unit="10*3/uL" xsi:type=& quot;PQ" value="0.1" /> <referenceRange> <observationRange> <text>0.0-0.1</text> </observationRange> </referenceRange> </ observation> </component> <component> < observation moodCode="EVN" classCode="OBS"> < templateId root="2.16.840.1.604871.10.20.22.4.2" /> < id nullFlavor="NA" /> <code codeSystem="local&quot ; code="NEUTRO" displayName="NEUTROPHILS" /> &lt ;statusCode code="completed" /> <effectiveTime value=& quot;602632246752" /> <value unit="%" xsi: type="PQ" value="66" /> <referenceRange> <observationRange> <text /> </observationRange& gt; </referenceRange> </observation> </ component> <component> <observation moodCode="EVN& quot; classCode="OBS"> <templateId root=" 2.16.840.1.491426.10.20.22.4.2" /> <id nullFlavor="NA& quot; /> <code codeSystem="local" code="LYMP&quot ; displayName="LYMPHOCYTE" /> <statusCode code=" completed" /> <effectiveTime value="033791262593" /> <value unit="%" xsi:type="PQ" value="18" /> <referenceRange> < observationRange> <text /> </ observationRange> </referenceRange> </observation> & lt;/component> <component> <observation moodCode="EVN " classCode="OBS"> <templateIdroot=" 2.16.840.1.966457.10.20.22.4.2" /> <id nullFlavor="NA& quot; /> <code codeSystem="local" code="MONO&quot ; displayName="MONOCYTE" /> <statusCode code=" completed" /> <effectiveTime value="417506772370" /> <value unit="%" xsi:type="PQ" value="11" /> <referenceRange> < observationRange> <text /> </observationRange> </referenceRange> </observation> </component&gt ; <component> <observation moodCode="EVN" classCode="OBS"> <templateId root=" 2.16.840.1.866164.10.20.22.4.2" /> <id nullFlavor="NA& quot; /> <code codeSystem="local" code="EOS" displayName="EOSINOPHIL" /> <statusCode code=" completed" /> <effectiveTime value="757531204875" /> <value unit="%" xsi:type="PQ" value="4 " /> <referenceRange> <observationRange&gt ; <text /> </observationRange> < /referenceRange> </observation> </component> &lt ;component> <observation moodCode="EVN" classCode=" OBS"> <templateId root="2.16.840.1.064930.10.20.22.4.2& quot; /> <id nullFlavor="NA" /> <code codeSystem="local" code="BASO" displayName="BASOPHIL& quot; /> <statusCode code="completed" />< effectiveTime value="960588443853" /> <value unit=&quot ;%"xsi:type="PQ" value="1" /> < referenceRange> <observationRange> <text /& gt; </observationRange> </referenceRange> </observation> </component> <component> &lt ;observation moodCode="EVN" classCode="OBS"> &lt ;templateId root="2.16.840.1.427830.10.20.22.4.2" /> < id nullFlavor="NA" /> <code codeSystem="local&quot ; code="NRBC" displayName="NUCLEATED RBC %AUTO" /&gt ; <statusCode code="completed" /> < effectiveTimevalue="465966351355" /> <value unit=" /100WBCs" xsi:type="PQ" value="0" /> < referenceRange> <observationRange> <text /> </observationRange> </referenceRange> </ observation> </component> <component> < observation moodCode="EVN" classCode="OBS"> < templateId root="2.16.840.1.686149.10.20.22.4.2" /> < id nullFlavor="NA" /> <code codeSystem="local&quot ; code="IGAB" displayName="ABSOLUTE IMMATURE GRANULOCYTES" / > <statusCode code="completed" /> < effectiveTime value="030205595595" /> <value unit=&quot ;10*3/uL" xsi:type="PQ" value="0.08" /> &lt ;referenceRange> <observationRange> <text&gt ;<0.1</text> </observationRange> </ referenceRange> </observation> </component> < component> <observation moodCode="EVN" classCode=" OBS"> <templateId root="2.16.840.1.376124.10.20.22.4.2& quot; /> <id nullFlavor="NA" /> <code codeSystem="local" code="IG" displayName="IMMATURE GRANULOCYTES" /> <statusCode code="completed" /> <effectiveTime value="565633948696" /> < value unit="%" xsi:type="PQ" value="0.8" / > <referenceRange> <observationRange> <text /> </observationRange> </ referenceRange> </observation> </component> < component> <observation moodCode="EVN" classCode=" OBS"> <templateId root="2.16.840.1.094602.10.20.22.4.2& quot;/> <id nullFlavor="NA" /> <code codeSystem="local"code="[id number]" displayName="RDW-SD " /> <statusCode code="completed" /> & lt;effectiveTime value="100291094067" /> <value unit=& quot;fL" xsi:type="PQ" value="46.1" /> < referenceRange> <observationRange> <text> 37.5-47.8</text> </observationRange> </referenceRange&gt ; </observation> </component> </organizer> &lt ;/entry> <entry> <organizer moodCode="EVN" classCode=& quot;BATTERY"> <templateId root=" 2.16.840.1.101255.10.20.22.4.1" /> <id nullFlavor="NA&quot ; /> <code codeSystem="local" code="PT" displayName="PROTIME" /> <statusCode code="completed& quot; /> <component> <observation moodCode="EVN& quot; classCode="OBS"> <templateId root=" 2.16.840.1.925702.10.20.22.4.2" /> <id nullFlavor="NA& quot; /> <code codeSystem="local" code="PROTM&quot ; displayName="PROTHROMBIN TIME (PT)" /> <statusCode code="completed" /> <effectiveTime value=" 677155096681" /> <value unit="seconds" xsi:type=& quot;PQ" value="11.2" /> <referenceRange> <observationRange> <text>9.3-11.7</text> </observationRange> </referenceRange> &lt ;/observation> </component> <component> < observation moodCode="EVN" classCode="OBS"> < templateId root="2.16.840.1.818064.10.20.22.4.2" /> < id nullFlavor="NA" /> <code codeSystem="local&quot ; code="INR" displayName="INR" /> < statusCode code="completed" /> <effectiveTime value=& quot;169773955823" /> <value unit="" xsi:type=& quot;PQ" value="1.1" /> <referenceRange> <observationRange> <text>0.9-1.1</text> </observationRange> </referenceRange> </ observation> </component> </organizer> </entry> & lt;entry> <organizer moodCode="EVN" classCode="BATTERY& quot;> <templateId root="2.16.840.1.425101.10.20.22.4.1" /&gt ; <id nullFlavor="NA" /> <code codeSystem=" local" code="AMMONIA" displayName="AMMONIA" /> <statusCode code="completed" /> <component> < observation moodCode="EVN" classCode="OBS"> < templateId root="2.16.840.1.498481.10.20.22.4.2" /> < id nullFlavor="NA" /> <code codeSystem="local" code="AMMONIA" displayName="AMMONIA" /> < statusCode code="completed" /> <effectiveTime value=& quot;286468247584" /> <value unit="umol/L" xsi: type="PQ" value="24" /> <referenceRange> <observationRange><text>0-49</text> < /observationRange> </referenceRange> </observation&gt ; </component> </organizer> </entry> <entry> <organizer moodCode="EVN" classCode="BATTERY"> <templateId root="2.16.840.1.339617.10.20.22.4.1" /> < id nullFlavor="NA" /><code codeSystem="local" code=& quot;TROPI" displayName="TROPONIN I" /> <statusCode code="completed" /> <component> <observation moodCode="EVN" classCode="OBS"> <templateId root="2.16.840.1.607738.10.20.22.4.2" /> <id nullFlavor ="NA" /> <code codeSystem="local" code=" TROPI" displayName="TROPONIN I" /> <statusCode code="completed" /> <effectiveTime value=" 572919022446" /> <value unit="ng/mL" xsi:type=& quot;PQ" value="0.030" /> <referenceRange> <observationRange> <text>0.000-0.045</text& gt; </observationRange> </referenceRange> </observation> </component> </organizer> </entry > <entry> <organizer moodCode="EVN" classCode=" BATTERY"> <templateId root="2.16.840.1.094326.10.20.22.4.1& quot; /> <id nullFlavor="NA" /> <code codeSystem ="local" code="UAMICRO" displayName="URINE MICROSCOPIC& quot; /> <statusCode code="completed" /> < component> <observation moodCode="EVN" classCode=" OBS"> <templateId root="2.16.840.1.624474.10..22.4.2& quot; /> <id nullFlavor="NA" /> <code codeSystem="local" code="WBCUA" displayName="WBC, URINE " /> <statusCode code="completed" /> & lt;effectiveTime value="630380507292" /> <value unit=& quot;/HPF" xsi:type="PQ" value="0-2" /> < referenceRange> <observationRange> <text /& gt; </observationRange> </referenceRange> </ observation> </component> <component> < observation moodCode="EVN" classCode="OBS"> < templateId root="2.16.840.1.472128.10.20.22.4.2" /> <id nullFlavor="NA" /> <code codeSystem="local" code="RBCUA" displayName="RBC, URINE" /> < statusCode code="completed"/> <effectiveTime value=& quot;673964088367" /> <value unit="/HPF" xsi:type= "PQ" value="0-2" /> <referenceRange> & lt;observationRange> <text /> </ observationRange> </referenceRange> </observation> & lt;/component> <component> <observation moodCode=" EVN" classCode="OBS"> <templateId root=" 2.16.840.1.581179.10.20.22.4.2" /> <id nullFlavor="NA& quot; /> <code codeSystem="local" code="BACTERIA& quot; displayName="BACTERIA, URINE" /> <statusCode code ="completed" /> <effectiveTime value="780224299808 " /> <value unit="/HPF" xsi:type="PQ" value="None Seen" /> <referenceRange> &lt ;observationRange> <text /> </ observationRange> </referenceRange> </observation&gt ; </component> <component> <observation moodCode ="EVN" classCode="OBS"> <templateId root=& quot;2.16.840.1.881085.10.20.22.4.2" /> <id nullFlavor=&quot ;NA" /> <code codeSystem="local" code=" SQUAEPI" displayName="SQUAMOUS CELLS" /> <statusCode code ="completed" /> <effectiveTime value="550977591327 " /> <value unit="/LPF" xsi:type="PQ" value="0-5"/> <referenceRange> < observationRange> <text /> </ observationRange> </referenceRange> </observation&gt ; </component> <component> <observation moodCode=& quot;EVN" classCode="OBS"> <templateId root=" 2.16.840.1.960650.10.20.22.4.2" /> <id nullFlavor="NA& quot; /> <code codeSystem="local" code="MUCUSTHRD& quot; displayName="MUCUS THREADS, URINE" /> < statusCode code="completed" /> <effectiveTime value=& quot;312152395162" /> <value unit="/LPF" xsi:type= "PQ" value="1+" /> <referenceRange> <observationRange> <text /> </ observationRange> </referenceRange> </observation&gt ; </component></organizer> </entry> <entry> & lt;organizer moodCode="EVN" classCode="BATTERY"> &lt ;templateId root="2.16.840.1.863369.10.20.22.4.1" /> <id nullFlavor="NA" /> <code codeSystem="local" code= "UC" displayName="URINE CULTURE" /> <statusCode code="completed" /> <component> <observation moodCode="EVN" classCode="OBS"> <templateId root="2.16.840.1.073188.10.20.22.4.2" /> <id nullFlavor ="NA" /> <code codeSystem="local" code=" MB" displayName="Microbiology" /> <statusCode code ="completed" /> <effectiveTime value="204563378861 " /> <value xsi:type="ST" value="<pre>& lt;b>CULTURE URINE</b> [id number] [place], [place] [address]SWX [address]UOUZIQBDG[address] [place], [place] [address]Flpki Culture No growth</ pre>" /><referenceRange> <observationRange> <text /> </observationRange> </ referenceRange> </observation> </component> </ organizer> </entry> <entry> <organizer moodCode="EVN " classCode="BATTERY"> <templateId root=" 2.16.840.1.439896.10.20.22.4.1" /> <id nullFlavor="NA&quot ; /> <code codeSystem="local" code="PT" displayName="PROTIME" /> <statusCode code="completed& quot; /> <component> <observation moodCode="EVN& quot; classCode="OBS"> <templateId root=" 2.16.840.1.790505.10.20.22.4.2" /> <id nullFlavor="NA& quot; /> <code codeSystem="local" code="PROTM&quot ; displayName="PROTHROMBIN TIME (PT)" /> <statusCode code="completed"/> <effectiveTime value=" 253718285022" /> <value unit="seconds" xsi:type=& quot;PQ" value="10.8" /> <referenceRange> <observationRange> <text>9.3-11.7</text> </observationRange> </referenceRange> </ observation> </component> <component> < observation moodCode="EVN" classCode="OBS"> < templateId root="2.16.840.1.531133.10.20.22.4.2" /> < id nullFlavor="NA" /> <code codeSystem="local&quot ; code="INR" displayName="INR" /> < statusCode code="completed" /> <effectiveTime value=& quot;330185315412" /> <value unit="" xsi:type=& quot;PQ" value="1.0" /> <referenceRange> <observationRange> <text>0.9-1.1</text> </observationRange> </referenceRange> </ observation> </component> </organizer> </entry> & lt;entry> <organizer moodCode="EVN" classCode="BATTERY& quot;><templateId root="2.16.840.1.505998.10.20.22.4.1" /> <id nullFlavor="NA" /> <code codeSystem="local& quot; code="[id number]" displayName="CBC WITH DIFFERENTIAL REFLEX MANUAL DIFF" /> <statusCode code="completed" /> <component> <observation moodCode="EVN" classCode=& quot;OBS"> <templateId root=" 2.16.840.1.509788.10..22.4.2" /> <id nullFlavor="NA& quot; /> <code codeSystem="local" code="WBC" displayName="WBC" /> <statusCode code="completed& quot; /> <effectiveTime value="258767783166" /> <value unit="10*3/uL" xsi:type="PQ" value=" 10.2" /> <interpretationCode codeSystem="local" code="H" /> <referenceRange> < observationRange> <text>4.0-9.6</text> </ observationRange> </referenceRange> </observation&gt ; </component> <component> <observation moodCode ="EVN" classCode="OBS"> <templateId root=& quot;2.16.840.1.118306.10..22.4.2" /> <id nullFlavor=&quot ;NA" /> <code codeSystem="local" code="RBC& quot; displayName="RBC" /> <statusCode code=" completed" /> <effectiveTime value="640660520387" /> <value unit="10*6/uL" xsi:type="PQ" value= "4.81" /> <referenceRange> < observationRange> <text>4.40-5.89</text> </observationRange> </referenceRange> </ observation> </component> <component> < observation moodCode="EVN" classCode="OBS"> < templateId root="2.16.840.1.077312.10.20.22.4.2" /> < id nullFlavor="NA" /> <code codeSystem="local&quot ; code="HGB" displayName="HEMOGLOBIN" /> < statusCode code="completed" /> <effectiveTime value=& quot;676471675872" /> <value unit="g/dL" xsi:type="PQ " value="14.8" /> <referenceRange> & lt;observationRange> <text>13.9-17.4</text> </observationRange> </referenceRange> </ observation> </component> <component> < observation moodCode="EVN" classCode="OBS"> < templateId root="2.16.840.1.113964.10.20.22.4.2" /> <id nullFlavor="NA" /> <code codeSystem="local" code="HCT" displayName="HEMATOCRIT" /> < statusCode code="completed" /> <effectiveTime value=& quot;300412356180" /> <value unit="%" xsi: type="PQ" value="43.8" /> <referenceRange&gt ; <observationRange> <text>40.6-50.3</ text> </observationRange> </referenceRange> </observation> </component> <component> <observation moodCode="EVN" classCode="OBS"> <templateId root="2.16.840.1.959799.10.20.22.4.2" /> <id nullFlavor="NA" /> <code codeSystem=" local" code="PLT"displayName="PLATELET COUNT" /> <statusCode code="completed" /> < effectiveTime value="321989529819" /> <value unit=&quot ;10*3/uL" xsi:type="PQ" value="167" /> < referenceRange> <observationRange> <text>150-400&lt ;/text> </observationRange> </referenceRange&gt ; </observation> </component> <component> <observation moodCode="EVN" classCode="OBS"> &lt ;templateId root="2.16.840.1.747862.10.20.22.4.2" /> < id nullFlavor="NA" /> <code codeSystem="local&quot ; code="MCV" displayName="MCV" /> < statusCode code="completed" /> <effectiveTime value=& quot;251168840849" /> <value unit="fL" xsi:type=& quot;PQ" value="91" /> <referenceRange> <observationRange> <text>81-99</text> & lt;/observationRange> </referenceRange> </ observation> </component> <component> < observation moodCode="EVN" classCode="OBS"> < templateId root="2.16.840.1.223518.10.20.22.4.2" /> < id nullFlavor="NA" /> <code codeSystem="local&quot ; code="MCH" displayName="MCH" /> < statusCode code="completed" /> <effectiveTime value=& quot;385746285910" /> <value unit="pg" xsi:type=& quot;PQ" value="30.8" /> <referenceRange> <observationRange> <text>26.7-34.1</text> </observationRange> </referenceRange> </ observation> </component> <component> < observation moodCode="EVN" classCode="OBS"> < templateId root="2.16.840.1.277851.10.20.22.4.2" /> < id nullFlavor="NA" /> <code codeSystem="local&quot ; code="MCHC" displayName="MCHC" /> < statusCode code="completed" /> <effectiveTime value=& quot;103247928639" /> <value unit="g/dL" xsi:type= "PQ" value="33.8" /> <referenceRange> <observationRange> <text>31.0-36.1</text&gt ; </observationRange> </referenceRange> & lt;/observation> </component> <component> < observation moodCode="EVN" classCode="OBS"> < templateId root="2.16.840.1.944913.10.20.22.4.2" /> < id nullFlavor="NA" /> <code codeSystem="local&quot ; code="MPV"displayName="MPV" /> <statusCode code="completed" /> <effectiveTime value=" 284937179875" /> <value unit="fL" xsi:type=" PQ" value="10.1" /> <referenceRange> <observationRange> <text /> </ observationRange> </referenceRange> </observation&gt ; </component> <component> <observation moodCode ="EVN" classCode="OBS"> <templateId root=& quot;2.16.840.1.417378.10.20.22.4.2" /> <id nullFlavor=&quot ;NA" /> <code codeSystem="local" code=" NEUTROAB" displayName="ABSOLUTE NEUTROPHIL" /> < statusCode code="completed" /> <effectiveTime value=& quot;299889303062" /> <value unit="10*3/uL" xsi: type="PQ" value="6.92" /> < interpretationCode codeSystem="local" code="H" /> <referenceRange> <observationRange> < text>1.70-6.40</text> </observationRange> &lt ;/referenceRange> </observation> </component> & lt;component> <observation moodCode="EVN" classCode=&quot ;OBS"> <templateId root="2.16.840.1.935792.10.20.22.4.2 " /> <id nullFlavor="NA" /> <code codeSystem="local" code="LYMPAB" displayName="ABSOLUTE LYMPHOCYTE" /> <statusCode code="completed" /> <effectiveTime value="741715098596" /> < value unit="10*3/uL" xsi:type="PQ" value="1.5" /& gt; <referenceRange> <observationRange> <text>1.1-3.5</text> </observationRange> </referenceRange> </observation> </component&gt ; <component> <observation moodCode="EVN" classCode="OBS"> <templateId root=" 2.16.840.1.366881.10.20.22.4.2" /> <id nullFlavor="NA& quot; /> <code codeSystem="local" code="MONOAB& quot; displayName="ABSOLUTE MONOCYTE" /> <statusCode code="completed" /> <effectiveTime value=" 431514816571" /> <value unit="10*3/uL" xsi:type=& quot;PQ" value="1.1" /> <interpretationCode codeSystem=& quot;local" code="H" /> <referenceRange> <observationRange> <text>0.3-0.9</text> & lt;/observationRange> </referenceRange> </ observation> </component> <component> < observation moodCode="EVN" classCode="OBS"> < templateId root="2.16.840.1.103178.10.20.22.4.2" /> < id nullFlavor="NA" /> <code codeSystem="local&quot ; code="EOSAB" displayName="ABSOLUTE EOSINOPHIL" /> <statusCode code="completed" /> <effectiveTime value="892187680438" /> <value unit="10*3/uL&quot ; xsi:type="PQ" value="0.5" /> < referenceRange> <observationRange> <text> 0.0-0.6</text> </observationRange> </ referenceRange> </observation> </component> < component> <observation moodCode="EVN" classCode=" OBS"> <templateId root="2.16.840.1.259919.10.20.22.4.2& quot; /> <id nullFlavor="NA" /> <code codeSystem="local" code="BASOAB"displayName="ABSOLUTE BASOPHIL" /> <statusCode code="completed" /> <effectiveTime value="754250228522" /> < value unit="10*3/uL" xsi:type="PQ" value="0.1" /& gt; <referenceRange> <observationRange> & lt;text>0.0-0.1</text> </observationRange> & lt;/referenceRange> </observation> </component> < component> <observation moodCode="EVN" classCode=" OBS"> <templateId root="2.16.840.1.098096.10.20.22.4.2&quot ; /> <id nullFlavor="NA" /> <code codeSystem="local" code="NEUTRO" displayName=" NEUTROPHILS" /> <statusCode code="completed" /&gt ; <effectiveTime value="495552651180" /> < value unit="%" xsi:type="PQ" value="68" /& gt; <referenceRange> <observationRange> <text /> </observationRange> </ referenceRange> </observation> </component> < component> <observation moodCode="EVN" classCode=" OBS"> <templateId root="2.16.840.1.847235.10.20.22.4.2& quot; /> <id nullFlavor="NA" /> <code codeSystem="local" code="LYMP" displayName="LYMPHOCYTE& quot; /> <statusCode code="completed" /> < effectiveTime value="107245470547" /> <value unit=&quot ;%" xsi:type="PQ" value="15" /> &lt ;referenceRange> <observationRange> <text /& gt; </observationRange> </referenceRange> </observation> </component> <component> &lt ;observation moodCode="EVN"classCode="OBS"> < templateId root="2.16.840.1.361398.10.20.22.4.2" /> < id nullFlavor="NA" /> <code codeSystem="local&quot ; code="MONO" displayName="MONOCYTE" /> < statusCode code="completed" /> <effectiveTime value=& quot;153025646561" /> <valueunit="%" xsi: type="PQ" value="11" /> <referenceRange> <observationRange> <text /> </ observationRange> </referenceRange> </observation&gt ; </component> <component> <observation moodCode ="EVN" classCode="OBS"> <templateId root=" 2.16.840.1.607688.10.20.22.4.2" /> <id nullFlavor="NA& quot; /> <code codeSystem="local" code="EOS" displayName="EOSINOPHIL" /> <statusCode code=" completed" /> <effectiveTime value="668140142506" /> <value unit="%" xsi:type="PQ" value="5" /> <referenceRange> < observationRange> <text /> </ observationRange> </referenceRange> </observation&gt ; </component> <component> <observation moodCode ="EVN" classCode="OBS"> <templateId root=& quot;2.16.840.1.930168.10.20.22.4.2" /> <id nullFlavor=&quot ;NA" /> <code codeSystem="local" code="BASO& quot; displayName="BASOPHIL" /> <statusCode code=" completed" /> <effectiveTime value="762616696589" /> <value unit="%" xsi:type="PQ" value="1" /> <referenceRange> < observationRange> <text /> </observationRange& gt; </referenceRange> </observation></component& gt; <component> <observation moodCode="EVN" classCode="OBS"> <templateId root=" 2.16.840.1.184074.10.20.22.4.2" /> <id nullFlavor="NA" /> <code codeSystem="local" code="NRBC" displayName="NUCLEATED RBC % AUTO" /> < statusCode code="completed" /> <effectiveTime value=& quot;028595495002" /> <value unit="/100WBCs" xsi: type="PQ" value="0" /> <referenceRange> <observationRange> <text /> </ observationRange> </referenceRange> </observation&gt ; </component> <component> <observation moodCode= "EVN" classCode="OBS"> <templateId root=" 2.16.840.1.853048.10.20.22.4.2" /> <id nullFlavor="NA& quot; /> <code codeSystem="local" code="IGAB&quot ; displayName="ABSOLUTE IMMATURE GRANULOCYTES" /> < statusCode code="completed" /> <effectiveTime value=& quot;428530958042" /> <value unit="10*3/uL" xsi: type="PQ" value="0.08" /> <referenceRange&gt ; <observationRange> <text><0.1</ text> </observationRange> </referenceRange> </observation> </component> <component> <observation moodCode="EVN" classCode="OBS"> <templateId root="2.16.840.1.168459.10.20.22.4.2" /> <idnullFlavor="NA" /> <code codeSystem=" local" code="IG" displayName="IMMATURE GRANULOCYTES" /& gt; <statusCode code="completed"/> < effectiveTime value="692962589259" /> <value unit=&quot ;%" xsi:type="PQ" value="0.8" /> & lt;referenceRange> <observationRange> <text /& gt; </observationRange> </referenceRange> & lt;/observation> </component> <component> < observation moodCode="EVN" classCode="OBS"> < templateId root="2.16.840.1.498842.10.20.22.4.2" /> < id nullFlavor="NA" /> <code codeSystem="local&quot ; code="6662723025" displayName="RDW-SD" /> < statusCode code="completed" /> <effectiveTime value=& quot;064513969227" /> <value unit="fL" xsi:type=& quot;PQ"value="44.8" /> <referenceRange> <observationRange> <text>37.5-47.8</text> </observationRange> </referenceRange> </ observation> </component> </organizer> </entry> & lt;entry> <organizer moodCode="EVN" classCode="BATTERY& quot;> <templateId root="[id number]" /& gt; <id nullFlavor="NA" /> <code codeSystem=" local" code="LACTVEN" displayName="LACTATE, VENOUS" /& gt; <statusCode code="completed" /> <component> <observation moodCode="EVN" classCode="OBS"> <templateId root="[id number]" /> <id nullFlavor="NA" /> <code codeSystem=" local" code="LACTVEN" displayName="LACTATE, VENOUS" /& gt; <statusCode code="completed" /> < effectiveTime value="[id number]" /> <value unit=&quot ;mmol/L" xsi:type="PQ" value="2.2" /> < interpretationCode codeSystem="local" code="H" /> <referenceRange> <observationRange> < text>0.4-2.0</text> </observationRange> </ referenceRange> </observation> </component> </ organizer> </entry> <entry> <organizer moodCode="EVN " classCode="BATTERY"> <templateId root=" 2.16.840.1.939980.10.20.22.4.1" /> <id nullFlavor="NA&quot ; /> <code codeSystem="local" code="BNPPRO" displayName="BNP PROBRAIN NATRIURETIC PEPT" /> <statusCode code="completed" /> <component> <observation moodCode ="EVN" classCode="OBS"> <templateId root=& quot;2.16.840.1.780381.10.20.22.4.2" /> <id nullFlavor=&quot ;NA" /> <code codeSystem="local" code="BNPPRO&quot ; displayName="BNP PROBRAIN NATRIURETIC PEPT" /> < statusCode code="completed" /> <effectiveTime value=& quot;120030711049" /> <value unit="pg/mL" xsi:type ="PQ" value="286" /> <referenceRange> <observationRange> <text><=450</text& gt; </observationRange> </referenceRange> </ observation> </component> </organizer></entry> &lt ;entry> <organizer moodCode="EVN" classCode="BATTERY& quot;> <templateId root="2.16.840.1.691378.10.20.22.4.1" /& gt; <id nullFlavor="NA" /> <code codeSystem=" local" code="DRUGU" displayName="DRUG SCREEN, URINE" /& gt; <statusCode code="completed" /> <component> <observation moodCode="EVN" classCode="OBS"> <templateId root="2.16.840.1.765736.10.20.22.4.2" /> <id nullFlavor="NA" /> <code codeSystem=& quot;local" code="AMPHETU" displayName="AMPHETAMINE SCREEN, URINE" /> <statusCode code="completed" /> & lt;effectiveTime value="178227929860" /> <value unit=& quot;" xsi:type="PQ" value="None Detected" /> <referenceRange> <observationRange> < text>None Detected</text> </observationRange> </referenceRange> </observation> </component> & lt;component> <observation moodCode="EVN" classCode=&quot ;OBS"> <templateId root="2.16.840.1.352045.10.20.22.4.2&quot ; /> <id nullFlavor="NA" /> <code codeSystem="local" code="BARBITU" displayName=" BARBITURATES SCREEN,URINE" /> <statusCode code=" completed" /> <effectiveTime value="607577870120" /> <value unit="" xsi:type="PQ" value=" None Detected" /> <referenceRange> < observationRange> <text>None Detected</text> </observationRange> </referenceRange> </ observation> </component> <component> < observation moodCode="EVN" classCode="OBS"> < templateId root="2.16.840.1.351634.10.20.22.4.2" /> < id nullFlavor="NA" /> <code codeSystem="local&quot ; code="BENZODIAU" displayName="BENZODIAZEPINES SCREEN,URINE&quot ; /> <statusCode code="completed" /> < effectiveTime value="386762082973" /> <valueunit=" " xsi:type="PQ" value="None Detected" /> & lt;referenceRange> <observationRange> <text& gt;None Detected</text> </observationRange> </ referenceRange> </observation></component> < component> <observation moodCode="EVN" classCode=" OBS"> <templateId root="2.16.840.1.677400.10..22.4.2& quot; /> <id nullFlavor="NA" /> <code codeSystem="local" code="CANNABU" displayName=" CANNABINOID SCREEN, URINE" /> <statusCode code=" completed" /> <effectiveTime value="510946191482" /> <value unit="" xsi:type="PQ" value=" None Detected" /> <referenceRange> < observationRange> <text>None Detected</text> </observationRange> </referenceRange> </ observation> </component> <component> < observation moodCode="EVN" classCode="OBS"> < templateId root="2.16.840.1.696972.10.20.22.4.2" /> < id nullFlavor="NA" /> <code codeSystem="local&quot ; code="COCAINEU" displayName="COCAINE SCREEN, URINE" /> <statusCodecode="completed" /> < effectiveTime value="123820957114" /> <value unit="& quot; xsi:type="PQ" value="None Detected" /> < referenceRange> <observationRange> <text> None Detected</text> </observationRange> </ referenceRange> </observation> </component> < component> <observation moodCode="EVN" classCode=" OBS"> <templateId root="2.16.840.1.393993.10.20.22.4.2& quot; /> <id nullFlavor="NA" /> <code codeSystem="local" code="ECSTASYU" displayName=" ECSTASY (MDMA) SCRN UR" /> <statusCode code="completed& quot; /> <effectiveTime value="570759306967" /> <value unit="" xsi:type="PQ" value="None Detected" /> <referenceRange> < observationRange> <text>None Detected</text> </observationRange> </referenceRange> </ observation> </component> <component> < observation moodCode="EVN" classCode="OBS"> < templateId root="2.16.840.1.526898.10.20.22.4.2" /> < id nullFlavor="NA" /> <code codeSystem="local&quot ; code="OPIATEU" displayName="OPIATE SCREEN, URINE" /> <statusCode code="completed" /> < effectiveTime value="345455453851" /> <value unit=&quot ;" xsi:type="PQ" value="None Detected" /> & lt;referenceRange> <observationRange> <text& gt;None Detected</text> </observationRange> < /referenceRange></observation> </component> </ organizer> </entry> <entry><organizer moodCode="EVN& quot; classCode="BATTERY"> <templateId root=" 2.16.840.1.458535.10.20.22.4.1" /> <id nullFlavor="NA&quot ; /> <code codeSystem="local" code="UC" displayName="URINE CULTURE" /><statusCode code="completed& quot; /> <component> <observation moodCode="EVN& quot; classCode="OBS"> <templateId root=" 2.16.840.1.241412.10.20.22.4.2" /> <id nullFlavor="NA& quot; /> <code codeSystem="local" code="MB" displayName="Microbiology" /> <statusCode code=" completed" /> <effectiveTime value="293924053157" /> <value xsi:type="ST" value="<pre><b&gt ;CULTURE URINE</b> [facility] [id number] [facility], [place] [address]MD[facility] [id number] [place], [place] [address] [address] Culture results suggestive of contaminated specimen, no predominant uro-pathogen isolated.Urine CultureMixed tasneem</pre>" /> <referenceRange> < observationRange> <text /> </ observationRange> </referenceRange> </observation&gt ; </component> </organizer> </entry> <entry> <organizer moodCode="EVN" classCode="BATTERY"> <templateId root="2.16.840.1.908450.10.20.22.4.1" /> < id nullFlavor="NA" /> <code codeSystem="local" code=& quot;[id number]" displayName="CBC WITH DIFFERENTIAL REFLEX MANUAL DIFF& quot; /> <statusCode code="completed" /> < component> <observation moodCode="EVN" classCode=" OBS"> <templateId root="2.16.840.1.023701.10..22.4.2& quot; /> <id nullFlavor="NA" /> <code codeSystem="local" code="WBC" displayName="WBC" /& gt; <statusCode code="completed" /> < effectiveTime value="560621251041" /> <value unit=&quot ;10*3/uL" xsi:type="PQ"value="8.5" /> < referenceRange> <observationRange> <text>4.0- 9.6</text> </observationRange> </ referenceRange> </observation> </component> < component> <observation moodCode="EVN" classCode=" OBS"> <templateId root="2.16.840.1.842785.10.20.22.4.2& quot; /> <id nullFlavor="NA" /> <code codeSystem="local" code="RBC" displayName="RBC" /& gt; <statusCode code="completed" /> < effectiveTime value="625266146125" /> <value unit=&quot ;10*6/uL" xsi:type="PQ" value="4.95" /> &lt ;referenceRange> <observationRange> <text&gt ;4.40-5.89</text> </observationRange> </ referenceRange> </observation> </component> < component> <observation moodCode="EVN" classCode=" OBS"> <templateId root="2.16.840.1.784243.10.20.22.4.2& quot; /> <id nullFlavor="NA" /> <code codeSystem="local" code="HGB" displayName="HEMOGLOBIN& quot; /> <statusCode code="completed" /> & lt;effectiveTime value="852511529476" /><value unit="g/dL& quot; xsi:type="PQ" value="14.7" /> < referenceRange> <observationRange> <text> 13.9-17.4</text> </observationRange> </ referenceRange> </observation> </component> < component> <observation moodCode="EVN" classCode=" OBS"> <templateId root="2.16.840.1.686687.10.20.22.4.2& quot; /> <id nullFlavor="NA" /> <code codeSystem="local" code="HCT" displayName="HEMATOCRIT& quot; /> <statusCode code="completed" /> & lt;effectiveTime value="961751949782" /> <value unit=& quot;%" xsi:type="PQ" value="44.4" /> <referenceRange> <observationRange> < text>40.6-50.3</text> </observationRange> &lt ;/referenceRange> </observation> </component> & lt;component> <observation moodCode="EVN" classCode=&quot ;OBS"> <templateId root="2.16.840.1.238632.10.20.22.4.2 " /> <id nullFlavor="NA" /> <code codeSystem="local" code="PLT" displayName="PLATELET COUNT" /> <statusCode code="completed" /> <effectiveTime value="200621330054" /> <value unit="10*3/uL" xsi:type="PQ" value="152" /> <referenceRange><observationRange> <text> 150-400</text> </observationRange> </ referenceRange> </observation> </component> < component> <observation moodCode="EVN" classCode=" OBS"><templateId root="2.16.840.1.180912.10.20.22.4.2" /&gt ; <id nullFlavor="NA" /> <code codeSystem=& quot;local" code="MCV" displayName="MCV" /> <statusCode code="completed" /> < effectiveTimevalue="158000475118" /> <value unit=" fL" xsi:type="PQ" value="90" /> < referenceRange> <observationRange> <text>81-99&lt ;/text> </observationRange> </referenceRange&gt ; </observation> </component> <component> <observation moodCode="EVN" classCode="OBS"> <templateId root="2.16.840.1.090666.10.20.22.4.2" /> <id nullFlavor="NA" /> <codecodeSystem=" local" code="MCH" displayName="MCH" /> < statusCode code="completed" /> <effectiveTime value=& quot;025695227984" /> <value unit="pg" xsi:type=& quot;PQ" value="29.7" /> <referenceRange> & lt;observationRange> <text>26.7-34.1</text> </observationRange> </referenceRange> </ observation> </component> <component> < observation moodCode="EVN"classCode="OBS"> < templateId root="2.16.840.1.869674.10.20.22.4.2" /> < id nullFlavor="NA" /> <code codeSystem="local&quot ; code="MCHC" displayName="MCHC" /> < statusCode code="completed" /> <effectiveTime value=& quot;421483923461" /> <value unit="g/dL" xsi:type= "PQ" value="33.1" /> <referenceRange> <observationRange> <text>31.0-36.1</text&gt ; </observationRange> </referenceRange> & lt;/observation> </component> <component> < observation moodCode="EVN" classCode="OBS"> < templateId root="2.16.840.1.844184.10.20.22.4.2" /> < id nullFlavor="NA" /> <code codeSystem="local&quot ; code="MPV" displayName="MPV" /> < statusCode code="completed" /> <effectiveTime value=& quot;317731373962" /> <value unit="fL" xsi:type=& quot;PQ" value="10.1" /> <referenceRange> <observationRange> <text /> </ observationRange> </referenceRange> </observation&gt ; </component> <component> <observation moodCode ="EVN" classCode="OBS"> <templateId root=& quot;2.16.840.1.970113.10.20.22.4.2" /> <id nullFlavor=&quot ;NA" /> <code codeSystem="local" code=" NEUTROAB" displayName="ABSOLUTE NEUTROPHIL" /> < statusCode code="completed" /> <effectiveTime value=& quot;689061266111" /> <value unit="10*3/uL" xsi: type="PQ" value="6.02" /> <referenceRange&gt ; <observationRange> <text>1.70-6.40</text> </observationRange> </referenceRange> </ observation> </component> <component> < observation moodCode="EVN" classCode="OBS"> < templateId root="2.16.840.1.563594.10.20.22.4.2" /> < id nullFlavor="NA" /> <code codeSystem="local&quot ; code="LYMPAB" displayName="ABSOLUTE LYMPHOCYTE" /> <statusCode code="completed" /> < effectiveTime value="277018082450" /> <value unit=&quot ;10*3/uL" xsi:type="PQ" value="1.1" /> < referenceRange> <observationRange> <text> 1.1-3.5</text> </observationRange> </ referenceRange> </observation> </component> < component> <observation moodCode="EVN" classCode=" OBS"> <templateId root="2.16.840.1.660666.10..22.4.2& quot; /> <id nullFlavor="NA" /> <code codeSystem="local" code="MONOAB" displayName="ABSOLUTE MONOCYTE" /> <statusCode code="completed" /> & lt;effectiveTime value="684181021079" /> <value unit=& quot;10*3/uL" xsi:type="PQ" value="1.0" /> <interpretationCode codeSystem="local" code="H" /> &lt ;referenceRange> <observationRange> <text&gt ;0.3-0.9</text> </observationRange> </ referenceRange> </observation> </component> < component> <observation moodCode="EVN" classCode=" OBS"> <templateId root="2.16.840.1.161473.10.20.22.4.2& quot; /> <id nullFlavor="NA" /> <code codeSystem="local" code="EOSAB" displayName="ABSOLUTE EOSINOPHIL" /> <statusCode code="completed" /> <effectiveTime value="618117276756" /> < value unit="10*3/uL" xsi:type="PQ" value="0.3" /& gt; <referenceRange> <observationRange> <text>0.0-0.6</text> </observationRange> </referenceRange> </observation> </component> <component> <observation moodCode="EVN" classCode= "OBS"> <templateId root=" 2.16.840.1.102998.10.20.22.4.2" /> <id nullFlavor="NA" / > <code codeSystem="local" code="BASOAB" displayName="ABSOLUTE BASOPHIL" /> <statusCode code=& quot;completed" /> <effectiveTime value="741997951109& quot; /> <value unit="10*3/uL" xsi:type="PQ" value="0.1" /> <referenceRange> < observationRange> <text>0.0-0.1</text> & lt;/observationRange> </referenceRange> </ observation> </component> <component> < observation moodCode="EVN" classCode="OBS"> < templateId root="2.16.840.1.921966.10.20.22.4.2" /> < id nullFlavor="NA" /> <code codeSystem="local&quot ; code="NEUTRO" displayName="NEUTROPHILS" /> &lt ;statusCode code="completed" /> <effectiveTime value=& quot;930752484549" /> <value unit="%" xsi: type="PQ" value="71" /> <referenceRange> <observationRange> <text /> </ observationRange> </referenceRange> </observation> & lt;/component> <component> <observation moodCode=" EVN" classCode="OBS"> <templateId root=" 2.16.840.1.679904.10.20.22.4.2" /> <id nullFlavor="NA& quot; /> <code codeSystem="local" code="LYMP&quot ; displayName="LYMPHOCYTE" /> <statusCode code=" completed" /> <effectiveTime value="756323648849" /> <value unit="%" xsi:type="PQ"value ="13" /> <referenceRange> < observationRange> <text /> </observationRange> </referenceRange> </observation> </component > <component> <observation moodCode="EVN" classCode="OBS"> <templateId root=" 2.16.840.1.160631.10.20.22.4.2" /> <id nullFlavor="NA& quot; /> <code codeSystem="local" code="MONO&quot ; displayName="MONOCYTE" /> <statusCode code=" completed" /> <effectiveTime value="969628161158" /> <value unit="%" xsi:type="PQ" value=&quot ;12" /> <referenceRange> <observationRange& gt; <text /> </observationRange> & lt;/referenceRange> </observation> </component> <component> <observation moodCode="EVN" classCode=& quot;OBS"> <templateId root=" 2.16.840.1.501187.10.20.22.4.2" /> <id nullFlavor="NA& quot; /> <code codeSystem="local" code="EOS" displayName="EOSINOPHIL" /> <statusCode code=" completed" /> <effectiveTime value="097615591186" /> <value unit="%" xsi:type="PQ" value=& quot;3" /> <referenceRange> < observationRange> <text /> </ observationRange> </referenceRange> </observation&gt ; </component> <component> <observation moodCode ="EVN" classCode="OBS"> <templateId root=& quot;2.16.840.1.096438.10.20.22.4.2" /> <id nullFlavor=&quot ;NA" /> <code codeSystem="local" code="BASO" displayName="BASOPHIL" /> <statusCode code=" completed" /> <effectiveTime value="725895568440" /> <value unit="%" xsi:type="PQ" value="1" /> <referenceRange> < observationRange> <text /> </ observationRange> </referenceRange> </observation&gt ; </component> <component> <observation moodCode ="EVN" classCode="OBS"> <templateId root=& quot;2.16.840.1.647781.10..22.4.2" /> <id nullFlavor=&quot ;NA" /> <code codeSystem="local" code="NRBC& quot; displayName="NUCLEATED RBC % AUTO" /> < statusCode code="completed" /> <effectiveTime value=& quot;843638847702" /> <value unit="/100WBCs" xsi: type="PQ" value="0" /> <referenceRange> <observationRange> <text /> </ observationRange> </referenceRange> </observation&gt ; </component> <component> <observation moodCode ="EVN" classCode="OBS"> <templateId root=& quot;2.16.840.1.808528.10.20.22.4.2" /> <id nullFlavor=&quot ;NA" /> <code codeSystem="local" code="IGAB& quot; displayName="ABSOLUTE IMMATURE GRANULOCYTES" /> < statusCode code="completed" /> <effectiveTime value=& quot;173406483697" /> <value unit="10*3/uL" xsi: type="PQ" value="0.03" /> <referenceRange&gt ; <observationRange> <text><0.1</ text> </observationRange> </referenceRange> </observation> </component> <component> < observation moodCode="EVN" classCode="OBS"> < templateId root="2.16.840.1.175845.10.20.22.4.2" /> <id nullFlavor="NA" /> <code codeSystem="local" code="IG" displayName="IMMATURE GRANULOCYTES" /> <statusCode code="completed" /> <effectiveTime value="086559583533" /> <value unit="%& quot; xsi:type="PQ" value="0.4" /> < referenceRange> <observationRange> <text /& gt; </observationRange> </referenceRange> </observation> </component><component> < observation moodCode="EVN" classCode="OBS"> < templateId root="2.16.840.1.073191.10.20.22.4.2" /> < id nullFlavor="NA" /> <code codeSystem="local&quot ; code="9442621244" displayName="RDW-SD" /> < statusCode code="completed" /> <effectiveTime value=& quot;396257916947" /> <value unit="fL" xsi:type=& quot;PQ" value="45.3" /> <referenceRange> <observationRange> <text>37.5-47.8</text> </observationRange> </referenceRange> </ observation> </component> </organizer></entry> &lt ;entry> <organizer moodCode="EVN" classCode="BATTERY& quot;> <templateId root="2.16.840.1.566009.10.20.22.4.1" /& gt; <id nullFlavor="NA" /> <code codeSystem=" local" code="LACTVEN" displayName="LACTATE, VENOUS" /& gt; <statusCode code="completed" /> <component> <observation moodCode="EVN" classCode="OBS"> <templateId root="2.16.840.1.345600.10.20.22.4.2" /> <id nullFlavor="NA" /> <code codeSystem=& quot;local" code="LACTVEN" displayName="LACTATE, VENOUS&quot ; /> <statusCode code="completed" /> < effectiveTime value="883859139949" /> <value unit=&quot ;mmol/L" xsi:type="PQ" value="2.5" /> < interpretationCode codeSystem="local" code="H" /> <referenceRange> <observationRange> <text&gt ;0.4-2.0</text> </observationRange> </ referenceRange> </observation> </component> </ organizer> </entry><entry> <organizer moodCode="EVN& quot; classCode="BATTERY"> <templateId root=" 2.16.840.1.443028.10.20.22.4.1" /> <id nullFlavor="NA" /> <code codeSystem="local" code="COMP" displayName="COMPREHENSIVE METABLIC GROUP" /> <statusCode code="completed" /> <component> <observation moodCode="EVN" classCode="OBS"> <templateId root="2.16.840.1.117749.10..22.4.2" /> <id nullFlavor ="NA"/> <code codeSystem="local" code=" NA" displayName="SODIUM" /> <statusCode code=&quot ;completed" /> <effectiveTime value="922728381956&quot ; /> <value unit="mmol/L" xsi:type="PQ" value ="137" /> <referenceRange> < observationRange> <text>136-145</text> </ observationRange> </referenceRange> </observation&gt ; </component> <component> <observation moodCode ="EVN" classCode="OBS"> <templateId root=& quot;2.16.840.1.087544.10.20.22.4.2" /> <id nullFlavor=&quot ;NA" /> <code codeSystem="local" code="K&quot ; displayName="POTASSIUM" /> <statusCode code=" completed" /> <effectiveTime value="302964302560"/ > <value unit="mmol/L" xsi:type="PQ" value=& quot;4.5" /> <referenceRange> < observationRange> <text>3.5-5.1</text> & lt;/observationRange> </referenceRange> </ observation> </component> <component> < observation moodCode="EVN" classCode="OBS"> < templateId root="2.16.840.1.765788.10.20.22.4.2" /> < id nullFlavor="NA" /> <code codeSystem="local&quot ; code="CL" displayName="CHLORIDE" /> < statusCode code="completed" /> <effectiveTime value=& quot;192480858885" /> <value unit="mmol/L" xsi: type="PQ" value="101" /> <referenceRange> <observationRange> <text>96-111</text&gt ;</observationRange> </referenceRange> </ observation> </component> <component> < observation moodCode="EVN" classCode="OBS"> < templateId root="2.16.840.1.480061.10..22.4.2" /> < id nullFlavor="NA" /> <code codeSystem="local&quot ; code="CO2" displayName="CARBON DIOXIDE" /> &lt ;statusCode code="completed" /> <effectiveTime value=& quot;318076116740" /> <value unit="mmol/L" xsi: type="PQ" value="26" /> <referenceRange> <observationRange> <text>20-30</text> </observationRange> </referenceRange> </ observation> </component> <component> < observation moodCode="EVN" classCode="OBS">< templateId root="2.16.840.1.488837.10..22.4.2" /> < id nullFlavor="NA" /> <code codeSystem="local&quot ; code="ANIONGAP" displayName="ANION GAP" /> &lt ;statusCode code="completed" /> <effectiveTime value=& quot;670421359744" /> <value unit="" xsi:type=& quot;PQ" value="15" /> <referenceRange> <observationRange> <text>6-18</text> </observationRange> </referenceRange> </ observation> </component> <component> < observation moodCode="EVN" classCode="OBS"> < templateId root="2.16.840.1.998820.10.20.22.4.2" /> < id nullFlavor="NA" /> <code codeSystem="local&quot ; code="BUN" displayName="BLOOD UREA NITROGEN" /> <statusCode code="completed" /> <effectiveTime value="842672711339" /> <value unit="mg/dL" xsi:type="PQ" value="29" /> < interpretationCode codeSystem="local" code="H" /> <referenceRange> <observationRange> < text>6-24</text> </observationRange> </ referenceRange> </observation> </component> < component> <observation moodCode="EVN" classCode=" OBS"> <templateId root="2.16.840.1.287536.10.20.22.4.2& quot; /> <id nullFlavor="NA" /> <code codeSystem="local" code="BUNCREAT" displayName="BUN/ CREATININE RATIO" /> <statusCode code="completed" /> <effectiveTime value="081855505870" /> & lt;value unit="" xsi:type="PQ" value="17" /> <referenceRange> <observationRange> <text>6-25</text> </observationRange> </ referenceRange> </observation> </component> < component> <observation moodCode="EVN" classCode=" OBS"> <templateId root="2.16.840.1.114532.10.20.22.4.2& quot; /> <id nullFlavor="NA" /> <code codeSystem="local" code="GFR" displayName="GLOMERULAR FILTRATION RATE" /> <statusCode code="completed" / > <effectiveTime value="369265888696" /> & lt;value unit="mL/min/1.73m*2" xsi:type="PQ" value=" 36.0" /><interpretationCode codeSystem="local" code="L " /> <referenceRange> <observationRange&gt ; <text>>60.0</text> </observationRange& gt; </referenceRange> </observation> </ component> <component> <observation moodCode="EVN& quot; classCode="OBS"> <templateId root=" 2.16.840.1.334991.10.20.22.4.2" /> <id nullFlavor="NA" /&gt ; <code codeSystem="local" code="GLU" displayName="GLUCOSE" /> <statusCode code=" completed" /> <effectiveTime value="908227271603" /> <value unit="mg/dL" xsi:type="PQ" value=& quot;132" /> <interpretationCode codeSystem="local&quot ; code="H" /> <referenceRange> < observationRange> <text>70-99</text> < /observationRange> </referenceRange> </observation& gt; </component> <component> <observation moodCode=& quot;EVN" classCode="OBS"> <templateId root=" 2.16.840.1.994380.10.20.22.4.2" /> <id nullFlavor="NA& quot; /> <code codeSystem="local" code="CA" displayName="CALCIUM" /> <statusCode code=" completed" /> <effectiveTime value="933885546609" /> <value unit="mg/dL" xsi:type="PQ" value=& quot;8.8" /> <referenceRange> < observationRange> <text>8.3-10.1</text> & lt;/observationRange> </referenceRange> </observation& gt; </component> <component> <observation moodCode="EVN" classCode="OBS"> <templateId root="2.16.840.1.609329.10.20.22.4.2" /> <id nullFlavor ="NA" /> <code codeSystem="local" code=" BILIT" displayName="BILIRUBIN, TOTAL" /><statusCode code=& quot;completed" /> <effectiveTime value="630691508442& quot; /> <value unit="mg/dL" xsi:type="PQ" value="0.6" /> <referenceRange> < observationRange> <text>0.2-1.2</text> & lt;/observationRange> </referenceRange> </ observation> </component> <component> < observation moodCode="EVN" classCode="OBS"> < templateId root="2.16.840.1.513399.10.20.22.4.2" /> < id nullFlavor="NA" /> <code codeSystem="local&quot ; code="AST" displayName="AST/SGOT" /> < statusCode code="completed" /> <effectiveTime value=& quot;877352059543" /> <value unit="U/L" xsi:type=& quot;PQ" value="22" /> <referenceRange> <observationRange> <text>7-37</text> </observationRange> </referenceRange> </ observation> </component> <component> < observation moodCode="EVN" classCode="OBS"> < templateId root="[id number]" /> < id nullFlavor="NA" /> <code codeSystem="local&quot ; code="ALT" displayName="ALT/SGPT" /> < statusCode code="completed" /> <effectiveTime value=" [id number]" /> <value unit="U/L" xsi:type=" PQ" value="23" /> <referenceRange> & lt;observationRange> <text>12-78</text> & lt;/observationRange> </referenceRange> </observation&gt ; </component> <component> <observation moodCode ="EVN" classCode="OBS"> <templateId root=& quot;[id number]" /> <id nullFlavor=&quot ;NA"/> <code codeSystem="local" code="TP&quot ; displayName="PROTEIN, TOTAL BLOOD" /> <statusCode code="completed" /> <effectiveTime value=" 400937280123" /> <value unit="g/dL" xsi:type=&quot ;PQ" value="7.1" /> <referenceRange> <observationRange> <text>6.4-8.2</text> </observationRange> </referenceRange> </ observation> </component> <component> < observation moodCode="EVN" classCode="OBS"> < templateId root="2.16.840.1.854457.10.20.22.4.2" /> < id nullFlavor="NA" /> <code codeSystem="local" code=& quot;ALB" displayName="ALBUMIN" /> <statusCode code=& quot;completed" /> <effectiveTime value="940135848613& quot; /> <value unit="g/dL" xsi:type="PQ" value="3.6" /> <referenceRange> < observationRange> <text>3.2-4.6</text> & lt;/observationRange> </referenceRange> </ observation> </component> <component> < observation moodCode="EVN" classCode="OBS"> < templateId root="2.16.840.1.577802.10.20.22.4.2" /> < id nullFlavor="NA" /> <code codeSystem="local&quot ; code="GLOB" displayName="GLOBULIN [CALCULATED]" /> <statusCode code="completed" /> < effectiveTime value="279800650794" /> <value unit=&quot ;g/dL" xsi:type="PQ" value="3.5" /> < referenceRange> <observationRange> <text> 2.2-4.2</text> </observationRange> </ referenceRange> </observation> </component> < component> <observation moodCode="EVN" classCode=" OBS"> <templateId root="2.16.840.1.125977.10.20.22.4.2& quot; /> <id nullFlavor="NA" /> <code codeSystem="local" code="AGRATIO" displayName="ALBUMIN/ GLOBULIN RATIO" /> <statusCode code="completed" /& gt; <effectiveTime value="059988402051" /> &lt ;value unit="" xsi:type="PQ" value="1.0" /> <referenceRange> <observationRange> & lt;text>0.8-2.0</text> </observationRange> & lt;/referenceRange> </observation> </component> & lt;component> <observation moodCode="EVN" classCode=&quot ;OBS"> <templateId root="2.16.840.1.347870.10..22.4.2 " /> <id nullFlavor="NA" /> <code codeSystem="local" code="ALKP" displayName="ALKALINE PHOSPHATASE" /> <statusCode code="completed" /&gt ; <effectiveTime value="965262026086" /> < value unit="U/L" xsi:type="PQ" value="98" /> <referenceRange> <observationRange> <text>20-125</text></observationRange> </ referenceRange> </observation> </component> < component> <observation moodCode="EVN" classCode=" OBS"> <templateId root="2.16.840.1.873045.10..22.4.2& quot; /> <id nullFlavor="NA" /> <code codeSystem="local" code="CREAT" displayName="Creatinine " /> <statusCode code="completed" /> & lt;effectiveTime value="216209631352" /> <value unit=& quot;mg/dL" xsi:type="PQ" value="1.69" /> & lt;interpretationCode codeSystem="local" code="H" /> <referenceRange> <observationRange> & lt;text>0.65-1.36</text> </observationRange> </ referenceRange> </observation> </component> </ organizer> </entry> <entry> <organizer moodCode="EVN " classCode="BATTERY"> <templateId root=" 2.16.840.1.194594.10.20.22.4.1" /> <id nullFlavor="NA&quot ; /> <code codeSystem="local" code="GLUPOC" displayName="GLUCOSE (POC)" /> <statusCode code=" completed" /> <component> <observation moodCode=& quot;EVN" classCode="OBS"> <templateId root=" 2.16.840.1.972747.10.20.22.4.2" /> <id nullFlavor="NA& quot; /> <code codeSystem="local" code="[id number]& quot; displayName="Glucose Meter (POC)" /> <statusCode code="completed" /> <effectiveTime value=" 017915994629" /> <value unit="mg/dL" xsi:type=& quot;PQ" value="111" /> <interpretationCode codeSystem="local" code="H" /> < referenceRange> <observationRange> <text>70- 99</text> </observationRange> </ referenceRange> </observation> </component> </ organizer> </entry><entry> <organizer moodCode="EVN& quot; classCode="BATTERY"> <templateId root=" 2.16.840.1.844531.10.20.22.4.1" /> <id nullFlavor="NA" /> <code codeSystem="local" code="[id number]" displayName="CBC WITH DIFFERENTIAL REFLEX MANUAL DIFF" /> < statusCode code="completed" /> <component> < observation moodCode="EVN" classCode="OBS"> < templateId root="2.16.840.1.063314.10.20.22.4.2" /> < id nullFlavor="NA" /> <code codeSystem="local&quot ; code="WBC" displayName="WBC" /> < statusCode code="completed" /> <effectiveTime value=& quot;207233013608" /> <value unit="10*3/uL" xsi: type="PQ" value="10.2" /> < interpretationCode codeSystem="local" code="H" /> <referenceRange> <observationRange> <text>4.0 -9.6</text> </observationRange> </ referenceRange> </observation> </component> < component> <observation moodCode="EVN" classCode=" OBS"> <templateId root="2.16.840.1.255096.10.20.22.4.2& quot; /> <id nullFlavor="NA" /> < codecodeSystem="local" code="RBC" displayName="RBC&quot ; /> <statusCode code="completed" /> < effectiveTime value="397041163348" /> <value unit=&quot ;10*6/uL" xsi:type="PQ" value="5.06" /> < referenceRange> <observationRange> <text> 4.40-5.89</text> </observationRange> </ referenceRange> </observation> </component> < component> <observation moodCode="EVN" classCode=" OBS"> <templateId root="2.16.840.1.581797.10.20.22.4.2& quot; /> <id nullFlavor="NA" /> <code codeSystem="local" code="HGB" displayName="HEMOGLOBIN& quot; /> <statusCode code="completed" /> & lt;effectiveTime value="127736902013" /> <value unit=& quot;g/dL" xsi:type="PQ" value="14.8" /> & lt;referenceRange> <observationRange> <text& gt;13.9-17.4</text> </observationRange> </ referenceRange> </observation> </component> < component> <observation moodCode="EVN" classCode=" OBS"> <templateId root="2.16.840.1.512530.10.20.22.4.2& quot; /> <id nullFlavor="NA" /> <code codeSystem ="local" code="HCT" displayName="HEMATOCRIT" /&gt ; <statusCode code="completed" /> < effectiveTime value="244402042588" /> <value unit=&quot ;%" xsi:type="PQ" value="44.6" /> & lt;referenceRange> <observationRange> <text> 40.6-50.3</text> </observationRange> </ referenceRange> </observation> </component> < component> <observation moodCode="EVN" classCode=" OBS"> <templateId root="2.16.840.1.386799.10.20.22.4.2& quot; /> <id nullFlavor="NA" /> <code codeSystem="local" code="PLT" displayName="PLATELET COUNT" /> <statusCode code="completed" /> & lt;effectiveTime value="630459505898" /> <value unit=& quot;10*3/uL" xsi:type="PQ" value="160" /> <referenceRange> <observationRange> <text >150-400</text> </observationRange> </ referenceRange> </observation> </component> < component> <observation moodCode="EVN" classCode=" OBS"> <templateId root="2.16.840.1.842538.07.22.22.4.2& quot; /> <id nullFlavor="NA" /> <code codeSystem="local" code="MCV" displayName="MCV" /& gt; <statusCode code="completed" /> < effectiveTime value="578599633105" /> <value unit=&quot ;fL" xsi:type="PQ" value="88" /> < referenceRange> <observationRange> <text>81-99</ text> </observationRange> </referenceRange> </observation> </component> <component> <observation moodCode="EVN" classCode="OBS"> <templateId root="2.16.840.1.456596.07.22..4.2" /> <id nullFlavor="NA" /> <code codeSystem=" local" code="MCH" displayName="MCH" /> < statusCode code="completed" /> <effectiveTime value=& quot;884930258168" /> <value unit="pg" xsi:type=& quot;PQ" value="29.2" /> <referenceRange> <observationRange> <text>26.7-34.1</text> </observationRange> </referenceRange> & lt;/observation> </component> <component> < observation moodCode="EVN" classCode="OBS"> < templateId root="2.16.840.1.370381.10.20.22.4.2" /> < id nullFlavor="NA" /> <code codeSystem="local&quot ; code="MCHC" displayName="MCHC" /> < statusCode code="completed" /> <effectiveTime value=& quot;854953191471" /> <value unit="g/dL" xsi:type= "PQ" value="33.2" /> <referenceRange> <observationRange> <text>31.0-36.1</text> </observationRange> </referenceRange> < /observation> </component> <component> < observation moodCode="EVN" classCode="OBS"> < templateId root="2.16.840.1.736433.10.20.22.4.2" /> < id nullFlavor="NA" /> <code codeSystem="local&quot ; code="MPV" displayName="MPV" /> < statusCode code="completed" /> <effectiveTime value=& quot;151360651412" /> <value unit="fL" xsi:type=& quot;PQ" value="10.0" /> <referenceRange> <observationRange> <text /> </ observationRange> </referenceRange> </observation&gt ; </component> <component> <observationmoodCode= "EVN" classCode="OBS"> <templateId root=&quot ;2.16.840.1.752543.10.20.22.4.2" /> <id nullFlavor="NA& quot; /> <code codeSystem="local" code="NEUTROAB& quot; displayName="ABSOLUTE NEUTROPHIL" /> <statusCode code="completed" /> <effectiveTime value=" 565853610782" /> <value unit="10*3/uL" xsi:type=& quot;PQ" value="7.19" /> <interpretationCode codeSystem="local" code="H" /> < referenceRange> <observationRange> <text> 1.70-6.40</text> </observationRange> </ referenceRange> </observation> </component> < component> <observation moodCode="EVN" classCode=" OBS"> <templateId root="2.16.840.1.846280.10.20.22.4.2& quot; /> <id nullFlavor="NA" /> <code codeSystem="local" code="LYMPAB" displayName="ABSOLUTE LYMPHOCYTE" /> <statusCode code="completed" /> <effectiveTime value="441684375102" /> < value unit="10*3/uL" xsi:type="PQ" value="1.7" /& gt; <referenceRange> <observationRange> <text>1.1-3.5</text> </observationRange> </referenceRange> </observation> </component> <component> <observation moodCode="EVN" classCode= "OBS"> <templateId root=" 2.16.840.1.910336.10.20.22.4.2" /> <id nullFlavor="NA& quot; /> <code codeSystem="local" code="MONOAB& quot; displayName="ABSOLUTE MONOCYTE" /> <statusCode code="completed" /> <effectiveTime value=" 168030255996" /> <value unit="10*3/uL" xsi:type="PQ& quot; value="0.9" /> <referenceRange> &lt ;observationRange> <text>0.3-0.9</text> & lt;/observationRange> </referenceRange> </ observation> </component> <component> < observation moodCode="EVN" classCode="OBS"> < templateId root="2.16.840.1.876616.10.20.22.4.2" /> <id nullFlavor="NA" /> <code codeSystem="local" code="EOSAB" displayName="ABSOLUTE EOSINOPHIL" /> <statusCode code="completed" /> <effectiveTime value="828910908224" /> <value unit="10*3/uL&quot ; xsi:type="PQ" value="0.3" /> < referenceRange> <observationRange> <text> 0.0-0.6</text> </observationRange> </referenceRange& gt; </observation> </component> <component> <observation moodCode="EVN" classCode="OBS"> <templateId root="2.16.840.1.615963.10..22.4.2" />< id nullFlavor="NA" /> <code codeSystem="local&quot ; code="BASOAB" displayName="ABSOLUTE BASOPHIL" /> <statusCode code="completed" /> <effectiveTime value="185407058278" /> <value unit="10*3/uL&quot ; xsi:type="PQ" value="0.0" /> < referenceRange> <observationRange> <text> 0.0-0.1</text> </observationRange> </ referenceRange> </observation> </component> < component> <observation moodCode="EVN" classCode=" OBS"> <templateId root="2.16.840.1.757146.10..22.4.2& quot; /> <id nullFlavor="NA" /> <code codeSystem="local" code="NEUTRO"displayName=" NEUTROPHILS" /> <statusCode code="completed" /&gt ; <effectiveTime value="776615244413" /> < value unit="%" xsi:type="PQ" value="71" /& gt; <referenceRange><observationRange> < text /> </observationRange> </referenceRange&gt ; </observation> </component> <component> & lt;observation moodCode="EVN" classCode="OBS"> & lt;templateId root="2.16.840.1.816065.10.20.22.4.2" /> &lt ;id nullFlavor="NA" /> <code codeSystem="local" code="LYMP" displayName="LYMPHOCYTE" /> < statusCode code="completed" /> <effectiveTime value=& quot;512237651332" /> <value unit="%" xsi: type="PQ" value="16" /> <referenceRange> <observationRange> <text /> </ observationRange> </referenceRange> </observation&gt ; </component> <component> <observation moodCode ="EVN" classCode="OBS"> <templateId root=& quot;2.16.840.1.610241.10..22.4.2" /> <id nullFlavor=&quot ;NA" /> <code codeSystem="local" code="MONO& quot; displayName="MONOCYTE" /> <statusCode code=" completed" /> <effectiveTime value="632713886533" /> <value unit="%" xsi:type="PQ" value="9" /> <referenceRange> < observationRange> <text /> </ observationRange> </referenceRange> </observation&gt ; </component> <component> <observation moodCode ="EVN" classCode="OBS"> <templateId root=& quot;2.16.840.1.089689.10..22.4.2" /> <id nullFlavor=&quot ;NA" /> <code codeSystem="local" code="EOS& quot; displayName="EOSINOPHIL" /> <statusCode code=& quot;completed" /> <effectiveTime value="228441726663& quot; /> <value unit="%" xsi:type="PQ&quot ; value="3" /> <referenceRange> < observationRange> <text /> </ observationRange> </referenceRange> </observation&gt ; </component> <component> <observation moodCode ="EVN" classCode="OBS"> <templateId root=& quot;2.16.840.1.179966.10.20.22.4.2" /> <id nullFlavor=&quot ;NA" /> <code codeSystem="local" code="BASO& quot; displayName="BASOPHIL" /> <statusCode code=" completed" /> <effectiveTime value="596700399528" /> <value unit="%" xsi:type="PQ" value="0" /> <referenceRange> < observationRange> <text/> </observationRange > </referenceRange> </observation> </ component> <component> <observation moodCode="EVN& quot; classCode="OBS"> <templateId root=" 2.16.840.1.531129.10.20.22.4.2" /> <id nullFlavor="NA& quot; /> <code codeSystem="local" code="NRBC&quot ; displayName="NUCLEATED RBC % AUTO" /> < statusCode code="completed" /> <effectiveTime value=& quot;696630595204" /> <value unit="/100WBCs" xsi:type ="PQ" value="0" /> <referenceRange> < observationRange> <text /> </ observationRange> </referenceRange> </observation&gt ; </component> <component> <observation moodCode ="EVN" classCode="OBS"> <templateId root=& quot;2.16.840.1.372600.10.20.22.4.2" /> <id nullFlavor=&quot ;NA" /> <code codeSystem="local" code="IGAB& quot; displayName="ABSOLUTE IMMATURE GRANULOCYTES" /> < statusCode code="completed" /> <effectiveTime value=& quot;295780267649" /> <valueunit="10*3/uL" xsi: type="PQ" value="0.06" /> <referenceRange&gt ; <observationRange> <text><0.1</ text> </observationRange> </referenceRange> & lt;/observation> </component> <component> < observation moodCode="EVN" classCode="OBS"> < templateId root="2.16.840.1.292248.10.20.22.4.2" /> <id nullFlavor="NA" /> <code codeSystem="local" code="IG" displayName="IMMATURE GRANULOCYTES" /> <statusCode code="completed" /> <effectiveTime value="578904811378" /> <value unit="%& quot; xsi:type="PQ" value="0.6" /> < referenceRange> <observationRange> <text /& gt; </observationRange> </referenceRange> </observation> </component> <component> &lt ;observation moodCode="EVN" classCode="OBS"> &lt ;templateId root="2.16.840.1.423860.10.20.22.4.2" /> < id nullFlavor="NA" /> <code codeSystem="local&quot ; code="8013447196" displayName="RDW-SD" /> < statusCode code="completed" /> <effectiveTime value=& quot;307141175998" /> <value unit="fL" xsi:type=& quot;PQ" value="44.3" /> <referenceRange> <observationRange> <text>37.5-47.8</text> </observationRange> </referenceRange> & lt;/observation> </component> </organizer> </entry&gt ; <entry> <organizer moodCode="EVN" classCode=" BATTERY"> <templateId root="2.16.840.1.039414.10.20.22.4.1& quot; /> <id nullFlavor="NA" /> <code codeSystem ="local" code="COMP" displayName="COMPREHENSIVE METABLIC GROUP" /> <statusCode code="completed" /> <component> <observation moodCode="EVN" classCode="OBS"> <templateId root=" 2.16.840.1.844305.10.20.22.4.2" /> <id nullFlavor="NA& quot; /> <code codeSystem="local" code="NA" displayName="SODIUM" /> <statusCode code=" completed" /> <effectiveTime value="358535996844" /> <value unit="mmol/L" xsi:type="PQ" value=& quot;137" /> <referenceRange> < observationRange> <text>136-145</text> & lt;/observationRange> </referenceRange> </ observation> </component> <component> < observation moodCode="EVN" classCode="OBS"> < templateId root="2.16.840.1.112696.10.20.22.4.2" /> < id nullFlavor="NA" /> <code codeSystem="local" code=& quot;K" displayName="POTASSIUM" /> <statusCode code=& quot;completed" /> <effectiveTime value="838882296375& quot; /> <value unit="mmol/L" xsi:type="PQ" value="3.9" /> <referenceRange> < observationRange> <text>3.5-5.1</text> & lt;/observationRange> </referenceRange></observation> </component> <component> <observation moodCode=& quot;EVN" classCode="OBS"> <templateId root=" 2.16.840.1.207933.10..22.4.2" /> <id nullFlavor="NA& quot; /> <code codeSystem="local" code="CL" displayName="CHLORIDE" /> <statusCode code=" completed" /> <effectiveTime value="709721011073" /> <value unit="mmol/L" xsi:type="PQ" value=" 104" /> <referenceRange> <observationRange& gt; <text>96-111</text> </observationRange > </referenceRange> </observation> </ component> <component> <observation moodCode="EVN& quot; classCode="OBS"> <templateId root=" 2.16.840.1.838045.10.20.22.4.2" /> <id nullFlavor="NA&quot ; /> <code codeSystem="local" code="CO2" displayName="CARBON DIOXIDE" /> <statusCode code=" completed" /> <effectiveTime value="483407220643" /> <value unit="mmol/L" xsi:type="PQ" value=& quot;23" /> <referenceRange> < observationRange> <text>20-30</text> < /observationRange> </referenceRange> </observation& gt; </component> <component> <observation moodCode="EVN" classCode="OBS"> <templateId root="2.16.840.1.115394.10.20.22.4.2" /> <id nullFlavor ="NA" /> <code codeSystem="local" code=" ANIONGAP" displayName="ANION GAP" /> <statusCode code="completed" /> <effectiveTime value="373808890029& quot; /> <value unit="" xsi:type="PQ" value=& quot;14" /> <referenceRange> < observationRange> <text>6-18</text> </ observationRange> </referenceRange> </observation> & lt;/component> <component> <observation moodCode="EVN " classCode="OBS"> <templateIdroot=" 2.16.840.1.560404.10.20.22.4.2" /> <id nullFlavor="NA& quot; /> <code codeSystem="local" code="BUN" displayName="BLOOD UREA NITROGEN" /> <statusCode code=& quot;completed" /> <effectiveTime value="173089996838& quot; /> <value unit="mg/dL" xsi:type="PQ" value="18" /> <referenceRange> < observationRange> <text>6-24</text> </ observationRange> </referenceRange> </observation&gt ; </component> <component> <observation moodCode ="EVN" classCode="OBS"> <templateId root=& quot;2.16.840.1.367646.10.20.22.4.2" /> <id nullFlavor=&quot ;NA" /> <code codeSystem="local" code=" BUNCREAT" displayName="BUN/CREATININE RATIO" /> < statusCode code="completed" /> <effectiveTime value=& quot;616955188583" /> <value unit="" xsi:type=& quot;PQ" value="16" /> <referenceRange> <observationRange> <text>6-25</text> </observationRange> </referenceRange> </observation > </component> <component> <observation moodCode="EVN" classCode="OBS"> <templateId root="2.16.840.1.968826.10.20.22.4.2" /> <id nullFlavor ="NA" /> <code codeSystem="local" code=" GFR" displayName="GLOMERULAR FILTRATION RATE" /> < statusCode code="completed" /> <effectiveTime value=& quot;918157901227" /> <value unit="mL/min" xsi: type="PQ" value="57.9" /> < interpretationCode codeSystem="local" code="L" /> < referenceRange> <observationRange> <text> >60.0</text> </observationRange> </ referenceRange> </observation> </component> < component> <observation moodCode="EVN" classCode=" OBS"> <templateId root="2.16.840.1.899525.10.20.22.4.2& quot; /> <id nullFlavor="NA" /> <code codeSystem="local" code="GLU" displayName="GLUCOSE&quot ; /> <statusCode code="completed" /> < effectiveTime value="156207252348" /> <value unit=&quot ;mg/dL" xsi:type="PQ" value="120" /> < interpretationCode codeSystem="local" code="H" /> <referenceRange> <observationRange> <text>70 -99</text> </observationRange> </ referenceRange> </observation> </component> < component> <observation moodCode="EVN" classCode=" OBS"> <templateId root="2.16.840.1.361872.10.20.22.4.2" /& gt; <id nullFlavor="NA" /> <code codeSystem ="local" code="CA" displayName="CALCIUM" /> <statusCode code="completed" /> < effectiveTime value="444945819742" /> <value unit=&quot ;mg/dL" xsi:type="PQ" value="9.0" /> < referenceRange> <observationRange> <text> 8.3-10.1</text> </observationRange> </ referenceRange> </observation> </component> < component> <observation moodCode="EVN" classCode=" OBS"> <templateId root="2.16.840.1.954464.10..22.4.2& quot; /> <id nullFlavor="NA" /> <code codeSystem ="local" code="BILIT" displayName="BILIRUBIN, TOTAL& quot; /> <statusCode code="completed" /> & lt;effectiveTime value="043868577852" /> <value unit=& quot;mg/dL" xsi:type="PQ" value="0.4" /> & lt;referenceRange> <observationRange> <text>0.2-1.2& lt;/text> </observationRange> </referenceRange& gt; </observation> </component> <component> <observation moodCode="EVN" classCode="OBS"> <templateId root="2.16.840.1.177072.10.20.22.4.2" /> <id nullFlavor="NA" /> <code codeSystem=&quot ;local" code="AST" displayName="AST/SGOT" /> <statusCode code="completed" /> <effectiveTime value="547299375325"/> <value unit="U/L" xsi: type="PQ" value="26" /> <referenceRange> <observationRange> <text>7-37</text> </observationRange> </referenceRange> </ observation> </component> <component> < observation moodCode="EVN" classCode="OBS"> < templateId root="2.16.840.1.922800.10.20.22.4.2" /> < id nullFlavor="NA" /> <code codeSystem="local&quot ; code="ALT" displayName="ALT/SGPT" /> < statusCode code="completed" /> <effectiveTime value=& quot;035811609649" /> <value unit="U/L" xsi:type=& quot;PQ" value="22" /> <referenceRange> <observationRange> <text>12-78</text> </observationRange> </referenceRange> </ observation> </component> <component> < observation moodCode="EVN" classCode="OBS"> < templateId root="2.16.840.1.799902.10..22.4.2" /> < id nullFlavor="NA" /> <code codeSystem="local&quot ; code="TP" displayName="PROTEIN, TOTAL BLOOD" /> <statusCode code="completed" /> <effectiveTime value= "602775882431" /> <value unit="g/dL" xsi:type ="PQ" value="7.2" /> <referenceRange> <observationRange> <text>6.4-8.2</text> </observationRange> </referenceRange> &lt ;/observation> </component> <component> < observation moodCode="EVN" classCode="OBS"> < templateId root="2.16.840.1.398144.10..22.4.2" /> < id nullFlavor="NA" /> <code codeSystem="local&quot ; code="ALB" displayName="ALBUMIN" /> < statusCode code="completed" /> <effectiveTime value=& quot;853311813779" /> <value unit="g/dL" xsi:type= "PQ"value="3.6" /> <referenceRange> <observationRange> <text>3.2-4.6</text> </observationRange> </referenceRange> </ observation> </component> <component> < observation moodCode="EVN" classCode="OBS"> < templateId root="2.16.840.1.954192.10.20.22.4.2" /> < id nullFlavor="NA" /> <code codeSystem="local&quot ; code="GLOB" displayName="GLOBULIN [CALCULATED]"/> <statusCode code="completed" /> <effectiveTime value="529125117027" /> <value unit="g/dL" xsi:type="PQ" value="3.6" /> <referenceRange& gt; <observationRange> <text>2.2-4.2</ text> </observationRange> </referenceRange> </observation> </component> <component> <observation moodCode="EVN" classCode="OBS"> <templateId root="2.16.840.1.460885.10.20.22.4.2" /> <id nullFlavor="NA" /> <code codeSystem=" local" code="AGRATIO" displayName="ALBUMIN/GLOBULIN RATIO& quot; /> <statusCode code="completed" /> &lt ;effectiveTime value="109735777308" /> <value unit=& quot;" xsi:type="PQ" value="1.0" /> < referenceRange> <observationRange> <text> 0.8-2.0</text> </observationRange> </ referenceRange> </observation> </component> < component> <observation moodCode="EVN" classCode=" OBS"> <templateId root="2.16.840.1.764374.10.20.22.4.2& quot; /> <id nullFlavor="NA" /> <code codeSystem="local" code="ALKP" displayName="ALKALINE PHOSPHATASE" /> <statusCode code="completed" /&gt ; <effectiveTime value="292481355831" /> < value unit="U/L" xsi:type="PQ" value="97" /> <referenceRange> <observationRange> < text>20-125</text> </observationRange> </ referenceRange> </observation> </component> < component> <observation moodCode="EVN" classCode=" OBS"> <templateId root="[id number]& quot; /> <id nullFlavor="NA" /> <code codeSystem="local" code="CREAT" displayName="Creatinine " /> <statusCode code="completed" /> & lt;effectiveTime value="[id number]" /> <value unit=& quot;mg/dL" xsi:type="PQ" value="1.14" /> & lt;referenceRange> <observationRange> <text& gt;0.65-1.36</text> </observationRange> </ referenceRange> </observation> </component> </ organizer> </entry> <entry> <organizer moodCode="EVN " classCode="BATTERY"> <templateId root=" [id number]" /> <id nullFlavor="NA&quot ; /> <code codeSystem="local" code="WGC2541K" displayName="CBC WITH DIFFERENTIAL REFLEX MANUAL DIFF" />< statusCode code="completed" /> <component> < observation moodCode="EVN" classCode="OBS"> < templateId root="2.16.840.1.900371.10.20.22.4.2" /> < id nullFlavor="NA" /> <code codeSystem="local&quot ; code="WBC" displayName="WBC" /> < statusCode code="completed" /> <effectiveTime value=& quot;140310069723" /> <value unit="10*3/uL" xsi:type=&quot ;PQ" value="7.4" /> <referenceRange> <observationRange> <text>4.0-9.6</text> </observationRange> </referenceRange> </ observation> </component> <component> < observation moodCode="EVN" classCode="OBS"> < templateId root="2.16.840.1.378078.10.20.22.4.2" /> <id nullFlavor="NA" /> <code codeSystem="local" code="RBC" displayName="RBC" /> <statusCode code="completed" /> <effectiveTime value=" 580996649758" /> <value unit="10*6/uL" xsi:type=& quot;PQ" value="4.47" /> <referenceRange> <observationRange> <text>4.40-5.89</text> </observationRange> </referenceRange> </ observation> </component> <component> < observation moodCode="EVN" classCode="OBS"> < templateId root="2.16.840.1.793704.10.20.22.4.2" /> < id nullFlavor="NA" /> <code codeSystem="local&quot ; code="HGB" displayName="HEMOGLOBIN" /> < statusCode code="completed" /> <effectiveTime value=& quot;239728931210" /> <value unit="g/dL" xsi:type= "PQ" value="13.2" /> <interpretationCode codeSystem="local" code="L" /> < referenceRange> <observationRange> <text>13.9 -17.4</text> </observationRange> </ referenceRange> </observation> </component> < component> <observation moodCode="EVN" classCode=" OBS"> <templateId root="2.16.840.1.884500.10.20.22.4.2& quot; /> <id nullFlavor="NA" /> <code codeSystem="local" code="HCT" displayName="HEMATOCRIT& quot; /> <statusCode code="completed" /> < effectiveTime value="016793286086" /> <value unit=&quot ;%" xsi:type="PQ" value="39.7" /> & lt;interpretationCode codeSystem="local" code="L" /> <referenceRange> <observationRange> & lt;text>40.6-50.3</text> </observationRange> </referenceRange> </observation> </component> <component> <observation moodCode="EVN" classCode=& quot;OBS"> <templateId root=" 2.16.840.1.218932.10.20.22.4.2" /> <id nullFlavor="NA& quot; /> <code codeSystem="local" code="PLT" displayName="PLATELET COUNT" /> <statusCode code=" completed" /> <effectiveTime value="258547956459" /> <value unit="10*3/uL" xsi:type="PQ" value=" 140" /> <interpretationCode codeSystem="local" code="L" /> <referenceRange> < observationRange> <text>150-400</text> & lt;/observationRange> </referenceRange> </ observation> </component> <component> < observation moodCode="EVN" classCode="OBS"> < templateId root="2.16.840.1.542312.10.20.22.4.2" /> < idnullFlavor="NA" /> <code codeSystem="local&quot ; code="MCV" displayName="MCV" /> < statusCode code="completed" /> <effectiveTime value=& quot;418653768943" /> <value unit="fL" xsi:type=& quot;PQ" value="89" /> <referenceRange> <observationRange> <text>81-99</text> </observationRange> </referenceRange> </ observation> </component> <component> < observation moodCode="EVN" classCode="OBS"> < templateId root="2.16.840.1.809654.10.20.22.4.2" /> < id nullFlavor="NA" /> <code codeSystem="local" code="MCH" displayName="MCH" /> <statusCode code="completed" /> <effectiveTime value=" 402278472729" /> <value unit="pg" xsi:type=" PQ" value="29.5" /> <referenceRange> <observationRange> <text>26.7-34.1</text> </observationRange> </referenceRange> </ observation> </component> <component> < observation moodCode="EVN" classCode="OBS"> < templateId root="2.16.840.1.129750.10.20.22.4.2" /> < id nullFlavor="NA" /> <code codeSystem="local&quot ; code="MCHC" displayName="MCHC" /> < statusCode code="completed" /> <effectiveTime value=& quot;745340739173" /> <value unit="g/dL" xsi:type="PQ " value="33.2" /> <referenceRange> & lt;observationRange> <text>31.0-36.1</text> </observationRange> </referenceRange> </ observation> </component> <component> < observation moodCode="EVN" classCode="OBS"> < templateId root="2.16.840.1.604176.10.20.22.4.2" /> <id nullFlavor="NA" /> <code codeSystem="local" code="MPV" displayName="MPV" /> <statusCode code="completed" /> <effectiveTime value=" 084835716211" /> <value unit="fL" xsi:type=" PQ" value="9.9" /> <referenceRange>< observationRange> <text /> </ observationRange> </referenceRange> </observation&gt ; </component> <component> <observation moodCode=& quot;EVN" classCode="OBS"> <templateId root=" 2.16.840.1.370439.10.20.22.4.2" /> <id nullFlavor="NA& quot; /> <code codeSystem="local" code="NEUTROAB&quot ; displayName="ABSOLUTE NEUTROPHIL" /> <statusCode code ="completed" /> <effectiveTime value="315754137187 " /> <value unit="10*3/uL" xsi:type="PQ&quot ; value="4.85" /> <referenceRange> < observationRange> <text>1.70-6.40</text> </observationRange> </referenceRange> </ observation> </component> <component> <observation moodCode="EVN" classCode="OBS"> <templateId root="2.16.840.1.127019.10.20.22.4.2" /> <id nullFlavor ="NA" /> <code codeSystem="local" code=" LYMPAB" displayName="ABSOLUTE LYMPHOCYTE" /> < statusCode code="completed" /> <effectiveTime value=& quot;226985971194" /> <value unit="10*3/uL" xsi: type="PQ" value="1.3" /> <referenceRange> <observationRange> <text>1.1-3.5</text> </observationRange> </referenceRange> & lt;/observation> </component> <component> < observation moodCode="EVN" classCode="OBS"> < templateId root="2.16.840.1.408072.10.20.22.4.2" /> < id nullFlavor="NA" /> <code codeSystem="local&quot ; code="MONOAB" displayName="ABSOLUTE MONOCYTE" /> <statusCode code="completed" /> <effectiveTime value="315595619837" /> <value unit="10*3/uL&quot ; xsi:type="PQ" value="0.9" /> < referenceRange> <observationRange> <text>0.3-0.9</ text> </observationRange> </referenceRange> </observation> </component> <component> <observation moodCode="EVN" classCode="OBS"> <templateId root="2.16.840.1.161055.10.20.22.4.2" /> <id nullFlavor="NA" /> <code codeSystem=" local" code="EOSAB" displayName="ABSOLUTE EOSINOPHIL" / > <statusCode code="completed" /> < effectiveTime value="709294107915" /> <value unit=&quot ;10*3/uL" xsi:type="PQ" value="0.3" /> < referenceRange> <observationRange> <text> 0.0-0.6</text> </observationRange> </ referenceRange> </observation> </component> < component> <observation moodCode="EVN" classCode=" OBS"> <templateId root="2.16.840.1.782468.10.20.22.4.2& quot; /> <id nullFlavor="NA" /> <code codeSystem="local" code="BASOAB" displayName="ABSOLUTE BASOPHIL" /> <statusCode code="completed" /> <effectiveTime value="510222211221" /> < value unit="10*3/uL" xsi:type="PQ" value="0.1" /& gt; <referenceRange> <observationRange> <text>0.0-0.1</text> </observationRange> </referenceRange> </observation> </component&gt ; <component> <observation moodCode="EVN" classCode="OBS"> <templateId root=" 2.16.840.1.731415.10.20.22.4.2" /> <id nullFlavor="NA& quot; /> <code codeSystem="local" code="NEUTRO& quot; displayName="NEUTROPHILS" /> <statusCode code=& quot;completed" /> <effectiveTime value="254180080933& quot; /> <value unit="%" xsi:type="PQ" value="66" /><referenceRange> <observationRange > <text /> </observationRange> & lt;/referenceRange> </observation> </component> <component> <observation moodCode="EVN" classCode=& quot;OBS"> <templateId root=" 2.16.840.1.819142.10.20.22.4.2" /> <idnullFlavor="NA& quot; /> <code codeSystem="local" code="LYMP" displayName="LYMPHOCYTE" /> <statusCode code=" completed" /> <effectiveTime value="314413689907" /&gt ; <value unit="%" xsi:type="PQ" value=& quot;18" /> <referenceRange> < observationRange> <text /> </ observationRange> </referenceRange> </observation&gt ; </component> <component> <observation moodCode=&quot ;EVN" classCode="OBS"> <templateId root=" 2.16.840.1.242542.10.20.22.4.2" /> <id nullFlavor="NA& quot; /> <code codeSystem="local" code="MONO" displayName="MONOCYTE" /> <statusCode code=" completed" /> <effectiveTime value="200607592520" /> <value unit="%" xsi:type="PQ" value="12" /> <referenceRange> < observationRange><text /> </observationRange> </referenceRange> </observation> </component> <component> <observation moodCode="EVN" classCode= "OBS"> <templateId root=" 2.16.840.1.259775.10.20.22.4.2" /> <id nullFlavor="NA& quot; /> <code codeSystem="local" code="EOS" displayName="EOSINOPHIL" /> <statusCode code=" completed" /> <effectiveTime value="173943729227" /> <value unit="%" xsi:type="PQ" value="4" /> <referenceRange> < observationRange> <text /> </ observationRange> </referenceRange> </observation&gt ; </component> <component> <observation moodCode=& quot;EVN" classCode="OBS"> <templateId root=" 2.16.840.1.851124.10.20.22.4.2" /> <id nullFlavor="NA& quot; /> <code codeSystem="local" code="BASO&quot ; displayName="BASOPHIL" /> <statusCode code=" completed" /> <effectiveTime value="736466941219" /> <value unit="%" xsi:type="PQ" value="1" /> <referenceRange> < observationRange> <text /> </ observationRange> </referenceRange> </observation&gt ; </component> <component> <observation moodCode ="EVN" classCode="OBS"> <templateId root=& quot;2.16.840.1.541163.10.20.22.4.2" /> <id nullFlavor=&quot ;NA" /> <code codeSystem="local" code="NRBC& quot; displayName="NUCLEATED RBC % AUTO" /> < statusCode code="completed" /> <effectiveTime value=& quot;605269711078" /> <value unit="/100WBCs" xsi: type="PQ" value="0" /> <referenceRange> <observationRange> <text /> </ observationRange> </referenceRange> </observation&gt ; </component> <component> <observation moodCode ="EVN" classCode="OBS"> <templateId root=& quot;2.16.840.1.062692.10.20.22.4.2" /> <id nullFlavor=&quot ;NA" /> <code codeSystem="local" code="IGAB& quot; displayName="ABSOLUTE IMMATURE GRANULOCYTES" /> < statusCode code="completed" /> <effectiveTime value=& quot;776638281993" /> <value unit="10*3/uL" xsi: type="PQ" value="0.02" /> <referenceRange&gt ; <observationRange> <text><0.1</ text> </observationRange> </referenceRange> </observation> </component> <component> & lt;observation moodCode="EVN" classCode="OBS"> & lt;templateId root="2.16.840.1.078558.10.20.22.4.2" /> &lt ;id nullFlavor="NA" /> <code codeSystem="local& quot; code="IG" displayName="IMMATURE GRANULOCYTES" /> & lt;statusCode code="completed" /> <effectiveTime value= "486749061815" /> <value unit="%" xsi :type="PQ" value="0.3" /> <referenceRange&gt ; <observationRange> <text /> &lt ;/observationRange> </referenceRange> </observation& gt; </component> <component> <observation moodCode="EVN" classCode="OBS"> <templateId root="2.16.840.1.145363.10.20.22.4.2" /> <id nullFlavor ="NA" /> <code codeSystem="local" code=" 0830588885" displayName="RDW-SD" /> <statusCode code="completed" /> <effectiveTime value=" 671050073358" /> <value unit="fL" xsi:type=" PQ" value="46.7" /> <referenceRange> <observationRange> <text>37.5-47.8</text> </observationRange> </referenceRange> </ observation> </component> </organizer> </entry> & lt;entry> <organizer moodCode="EVN" classCode="BATTERY& quot;> <templateId root="2.16.840.1.134860.10.20.22.4.1" /& gt; <id nullFlavor="NA" /> <code codeSystem=" local" code="PT" displayName="PROTIME" /> < statusCode code="completed" /> <component> < observation moodCode="EVN" classCode="OBS"> < templateId root="2.16.840.1.744661.10.20.22.4.2" /> < id nullFlavor="NA" /> <code codeSystem="local&quot ; code="PROTM" displayName="PROTHROMBIN TIME (PT)" /> <statusCode code="completed"/> < effectiveTime value="255286942731" /> <value unit=&quot ;seconds" xsi:type="PQ" value="11.4" /> &lt ;referenceRange> <observationRange> <text>9.3 -11.7</text> </observationRange> </ referenceRange> </observation> </component> < component> <observation moodCode="EVN" classCode=" OBS"> <templateId root="2.16.840.1.755901.10.20.22.4.2& quot; /> <id nullFlavor="NA" /> <code codeSystem="local" code="INR" displayName="INR" /& gt; <statusCode code="completed" /> < effectiveTime value="322426563840" /> <value unit=&quot ;" xsi:type="PQ" value="1.1" /> < referenceRange> <observationRange> <text> 0.9-1.1</text> </observationRange> </ referenceRange> </observation> </component> </ organizer> </entry> <entry> <organizer moodCode="EVN " classCode="BATTERY"><templateId root=" 2.16.840.1.221342.10.20.22.4.1" /> <id nullFlavor="NA&quot ; /> <code codeSystem="local" code="AMMONIA" displayName="AMMONIA" /> <statusCode code="completed& quot; /> <component> <observation moodCode="EVN& quot; classCode="OBS"> <templateId root=" 2.16.840.1.327483.10.20.22.4.2" /> <id nullFlavor="NA& quot; /> <code codeSystem="local" code="AMMONIA" displayName="AMMONIA" /> <statusCode code=" completed" /> <effectiveTime value="685112146449" /> <value unit="umol/L" xsi:type="PQ" value=& quot;14" /> <referenceRange> < observationRange> <text>0-49</text> </ observationRange> </referenceRange> </observation> </component> </organizer> </entry> <entry> < organizer moodCode="EVN" classCode="BATTERY"> < templateId root="2.16.840.1.939167.10.20.22.4.1" /> <id nullFlavor="NA" /> <code codeSystem="local" code= "DIGOXIN" displayName="DIGOXIN" /> <statusCode code=& quot;completed" /> <component> <observation moodCode="EVN" classCode="OBS"> <templateId root="2.16.840.1.391809.10.20.22.4.2" /> <id nullFlavor ="NA" /> <code codeSystem="local" code=" DIGOXIN" displayName="DIGOXIN" /> <statusCode code ="completed" /> <effectiveTime value="672369486804 " /> <value unit="ng/mL" xsi:type="PQ" value="0.7" /> <interpretationCode codeSystem="local& quot; code="L" /> <referenceRange> < observationRange> <text>0.9-2.0</text> </ observationRange> </referenceRange> </observation&gt ; </component> </organizer> </entry> <entry> <organizer moodCode="EVN" classCode="BATTERY"> <templateId root="2.16.840.1.127066.10.20.22.4.1" /> < id nullFlavor="NA" /> <code codeSystem="local" code="LCBC" displayName="L100.0050" /> < statusCode code="completed" /> <component> < observation moodCode="EVN" classCode="OBS"> < templateId root="2.16.840.1.673011.10.20.22.4.2" /> <id nullFlavor="NA" /> <code codeSystem="local" code="100.0150" displayName="WBC - WHITE BLOOD COUNT" /> <statusCode code="completed" /> < effectiveTime value="888124518591" /> <value unit=&quot ;T/MM3" xsi:type="PQ" value="11.5" /> < interpretationCode codeSystem="local" code="*" /> <referenceRange> <observationRange> <text& gt;4.5-11.0</text> </observationRange> </ referenceRange> </observation> </component> < component> <observation moodCode="EVN" classCode=" OBS"> <templateId root="2.16.840.1.174401.10.20.22.4.2& quot; /> <id nullFlavor="NA" /> <code codeSystem="local" code="100.0250" displayName="RED BLOOD COUNT" /> <statusCode code="completed" /&gt ; <effectiveTime value="482928205073" /> < value unit="M/MM3" xsi:type="PQ" value="5.15" /&gt ; <referenceRange> <observationRange> <text>4.50-5.90</text> </observationRange> </referenceRange> </observation> </component&gt ; <component> <observation moodCode="EVN" classCode="OBS"><templateId root=" 2.16.840.1.444074.10.20.22.4.2" /> <id nullFlavor="NA& quot; /> <code codeSystem="local" code="100.0300& quot; displayName="HGB - HEMOGLOBIN" /> <statusCode code="completed" /><effectiveTime value="292744056714&quot ; /> <value unit="GM/DL" xsi:type="PQ" value= "15.1" /> <referenceRange> < observationRange> <text>13.5-17.5</text> </observationRange> </referenceRange> </ observation> </component> <component> < observation moodCode="EVN" classCode="OBS"> < templateId root="2.16.840.1.012875.10..22.4.2" /> < id nullFlavor="NA" /> <code codeSystem="local&quot ; code="100.0400" displayName="HCT - HEMATOCRIT" /> <statusCode code="completed" /> <effectiveTime value="444057660005" /> <value unit="%& quot; xsi:type="PQ" value="45.9" /> < referenceRange> <observationRange> <text> 41-53</text> </observationRange> </referenceRange&gt ; </observation> </component> <component> <observation moodCode="EVN" classCode="OBS"> <templateId root="2.16.840.1.666697.10.20.22.4.2" /> <id nullFlavor="NA" /> <code codeSystem=" local" code="100.0550" displayName="MEAN CORPUSCULAR VOLUME& quot; /> <statusCode code="completed" /> & lt;effectiveTime value="768161827016" /> <value unit=& quot;UM3" xsi:type="PQ" value="89.1" /> &lt ;referenceRange> <observationRange> <text&gt ;80-100</text> </observationRange> </ referenceRange> </observation> </component> < component> <observation moodCode="EVN" classCode="OBS&quot ;> <templateId root="2.16.840.1.501997.10.20.22.4.2" /& gt; <id nullFlavor="NA" /> <code codeSystem=& quot;local" code="100.0600" displayName="MEAN CORPUSCULAR HGB" /> <statusCode code="completed" /> <effectiveTime value="609440712817" /> <value unit="UUG" xsi:type="PQ" value="29.3" /> <referenceRange> <observationRange> < text>26-34</text> </observationRange> </ referenceRange> </observation> </component> < component> <observation moodCode="EVN" classCode=" OBS"> <templateId root="2.16.840.1.606502.10.20.22.4.2& quot; /> <id nullFlavor="NA" /> <code codeSystem="local" code="100.0650" displayName="MEAN CORPUSCULAR HGB CONC([facility]C" /> <statusCode code=" completed" /> <effectiveTime value="380717955438" /> <value unit="GM/DL" xsi:type="PQ" value=& quot;32.9" /> <referenceRange> < observationRange> <text>31-37</text> < /observationRange> </referenceRange> </observation& gt; </component> <component> <observation moodCode="EVN" classCode="OBS"> <templateId root="2.16.840.1.957623.10.20.22.4.2" /> <id nullFlavor ="NA" /><code codeSystem="local" code="100.0750& quot; displayName="RDW STANDARD DEVIATION" /> < statusCode code="completed" /> <effectiveTime value=& quot;200095463344" /> <value unit="FL" xsi:type=& quot;PQ" value="49.7" /> <referenceRange> <observationRange> <text>36.9-50.2</text> </observationRange> </referenceRange> </ observation> </component> <component> < observation moodCode="EVN" classCode="OBS"> < templateId root="2.16.840.1.158300.10.20.22.4.2" /> < id nullFlavor="NA" /> <code codeSystem="local&quot ; code="100.0850" displayName="PLT - PLATELET COUNT" /> <statusCode code="completed" /> < effectiveTime value="297174958282" /> <value unit=&quot ;T/MM3" xsi:type="PQ" value="203" /> < referenceRange> <observationRange> <text>130-400< /text> </observationRange> </referenceRange> </observation> </component> <component> <observation moodCode="EVN" classCode="OBS"> <templateId root="2.16.840.1.427054.10.20.22.4.2" /> <id nullFlavor="NA" /> <code codeSystem=" local" code="100.0950" displayName="MEAN PLATELET VOLUME& quot; /> <statusCode code="completed" /> & lt;effectiveTime value="199263809631" /> <value unit=& quot;UM3" xsi:type="PQ" value="10.3" /> &lt ;referenceRange> <observationRange> <text&gt ;9.4-12.4</text> </observationRange> </ referenceRange> </observation> </component> < component> <observation moodCode="EVN" classCode=" OBS"> <templateId root="2.16.840.1.398360.10.20.22.4.2& quot; /> <id nullFlavor="NA" /> <code codeSystem="local" code="100.1050" displayName=" NEUTROPHILS % (AUTO)"/> <statusCode code=" completed" /> <effectiveTime value="417728011517" /> <value unit="%" xsi:type="PQ" value="75.6" /> <interpretationCode codeSystem=" local" code="*" /> <referenceRange> <observationRange> <text>33-66</text> </observationRange> </referenceRange> </ observation> </component> <component> < observation moodCode="EVN" classCode="OBS"> < templateId root="2.16.840.1.681821.10.20.22.4.2" /> < id nullFlavor="NA" /> <code codeSystem="local&quot ; code="100.1100" displayName="LYMPHOCYTES % (AUTO)&quot ; /> <statusCode code="completed" /> < effectiveTime value="754196478131" /> <value unit=&quot ;%" xsi:type="PQ" value="10.8" /> & lt;interpretationCode codeSystem="local" code="*" /> <referenceRange> <observationRange> < text>23-45</text> </observationRange> </ referenceRange> </observation> </component> < component> <observation moodCode="EVN" classCode=" OBS"> <templateId root="2.16.840.1.225524.10.20.22.4.2& quot; /> <id nullFlavor="NA" /> <code codeSystem="local" code="100.1150" displayName=" MONOCYTES % (AUTO)" /> <statusCode code=" completed" /> <effectiveTime value="415191370095" /> <value unit="%" xsi:type="PQ" value="12.0" /> <interpretationCode codeSystem=" local" code="*" /> <referenceRange> <observationRange> <text>0-9.0</text> &lt ;/observationRange> </referenceRange> </observation& gt;</component> <component> <observation moodCode=& quot;EVN" classCode="OBS"> <templateId root=" 2.16.840.1.150683.10.20.22.4.2" /> <id nullFlavor="NA" /> <code codeSystem="local" code="100.1200" displayName="EOSINOPHILS % (AUTO)" /> < statusCode code="completed" /> <effectiveTime value=& quot;903551089509" /> <value unit="%" xsi:type=& quot;PQ" value="1.0" /><referenceRange> < observationRange> <text>0-4</text> </ observationRange> </referenceRange> </observation&gt ; </component> <component> <observation moodCode=& quot;EVN" classCode="OBS"> <templateId root=" 2.16.840.1.858207.10.20.22.4.2" /> <id nullFlavor="NA&quot ; /> <code codeSystem="local" code="100.1250&quot ; displayName="BASOPHILS % (AUTO)" /> < statusCode code="completed" /> <effectiveTime value=& quot;102019099555" /> <value unit="%" xsi:type=& quot;PQ" value="0.2" /><referenceRange> < observationRange> <text>0-2</text> </ observationRange> </referenceRange> </observation&gt ; </component> <component> <observation moodCode=& quot;EVN" classCode="OBS"> <templateId root=" 2.16.840.1.189631.10.20.22.4.2" /> <id nullFlavor="NA&quot ; /> <code codeSystem="local" code="100.1275&quot ; displayName="IMMATURE GRANULOCYTE % (AUTO)" /> & lt;statusCode code="completed" /> <effectiveTime value= "551538111935" /> <value unit="%" xsi :type="PQ" value="0.4" /> <referenceRange&gt ; <observationRange> <text>0.0-0.5</text& gt; </observationRange> </referenceRange> </observation> </component> <component> &lt ;observation moodCode="EVN" classCode="OBS"> &lt ;templateId root="2.16.840.1.039733.10.20.22.4.2" /> < id nullFlavor="NA" /> <code codeSystem="local&quot ; code="100.1300" displayName="NEUTROPHILS # (AUTO)" /> <statusCode code="completed" /> < effectiveTime value="010421467694" /> <value unit=&quot ;T/MM3" xsi:type="PQ" value="8.7" /> < interpretationCode codeSystem="local" code="*" /> <referenceRange> <observationRange> < text>1.8-7.7</text> </observationRange> </ referenceRange> </observation> </component> < component> <observation moodCode="EVN" classCode=" OBS"> <templateId root="2.16.840.1.564416.10.20.22.4.2& quot; /> <id nullFlavor="NA" /> <code codeSystem= "local" code="100.1350" displayName="LYMPHOCYTES # ( AUTO)" /> <statusCode code="completed" /> <effectiveTime value="442330191138" /> <value unit="T/MM3" xsi:type="PQ" value="1.2" /> <referenceRange> <observationRange> &lt ;text>1-4.8</text> </observationRange> </ referenceRange> </observation> </component> < component> <observation moodCode="EVN" classCode=" OBS"> <templateId root="2.16.840.1.176108.10.20.22.4.2& quot; /> <idnullFlavor="NA" /> <code codeSystem="local" code="100.1400" displayName=" MONOCYTES # (AUTO)" /> <statusCode code="completed&quot ; /> <effectiveTime value="505443138514" /> <value unit="T/MM3" xsi:type="PQ" value="1.4&quot ; /> <interpretationCode codeSystem="local" code=" *" /> <referenceRange> <observationRange&gt ; <text>0-0.8</text> </observationRange& gt; </referenceRange> </observation> </ component> <component> <observation moodCode="EVN& quot; classCode="OBS"> <templateId root=" 2.16.840.1.234942.10.20.22.4.2" /> <id nullFlavor="NA& quot; /> <code codeSystem="local" code="100.1450& quot; displayName="EOSINOPHILS # (AUTO)" /> < statusCode code="completed" /> <effectiveTime value=& quot;[id number]" /> <value unit="T/MM3" xsi:type ="PQ" value="0.1" /> <referenceRange> <observationRange> <text>0-0.5</text> </observationRange> </referenceRange> </ observation> </component> <component> < observation moodCode="EVN" classCode="OBS"> < templateId root="[id number]" /> < id nullFlavor="NA" /> <code codeSystem="local" code="100.1500" displayName="BASOPHILS # (AUTO)" /> <statusCode code="completed" /> <effectiveTime value="[id number]" /> <value unit="T/MM3" xsi:type="PQ" value="0.0" /> <referenceRange& gt; <observationRange> <text>0-0.2</text& gt; </observationRange> </referenceRange> </observation> </component> <component> &lt ;observation moodCode="EVN" classCode="OBS"> &lt ;templateId root="2.16.840.1.260806.10.20.22.4.2" /> < id nullFlavor="NA" /> <code codeSystem="local&quot ; code="100.1525" displayName="IMMATURE GRANULOCYTE# (AUTO)&quot ; /> <statusCode code="completed" /> < effectiveTime value="508869193937" /> <value unit=&quot ;T/MM3" xsi:type="PQ" value="0.05" /> < interpretationCode codeSystem="local" code="*" /> <referenceRange> <observationRange><text>0.00- 0.03</text> </observationRange> </ referenceRange> </observation> </component> </ organizer> </entry> <entry> <organizer moodCode="EVN " classCode="BATTERY"> <templateId root=" 2.16.840.1.127591.10.20.22.4.1" /> <id nullFlavor="NA&quot ; /> <code codeSystem="local" code="LCMP" displayName="L200.0020" /> <statusCode code="completed " /> <component> <observation moodCode="EVN& quot; classCode="OBS"> <templateId root=" 2.16.840.1.347871.10.20.22.4.2" /> <id nullFlavor="NA& quot; /> <code codeSystem="local" code="300.0400& quot; displayName="FUNGAL CULTURE." /> <statusCode code=& quot;completed" /> <effectiveTime value="140727648970& quot; /> <value unit="mg/dL" xsi:type="PQ" value="1.1" /> <referenceRange> < observationRange> <text>0.8-1.5</text> & lt;/observationRange> </referenceRange> </observation> </component> <component> <observation moodCode=& quot;EVN" classCode="OBS"> <templateId root=" 2.16.840.1.409326.10.20.22.4.2" /> <id nullFlavor="NA& quot; /> <code codeSystem="local" code="300.0450& quot; displayName="FUNGAL CULTURE, BLOOD." /> <statusCode code="completed" /> <effectiveTime value=" 705162441810" /> <value unit="RATIO" xsi:type=& quot;PQ" value="33" /> <interpretationCode codeSystem="local" code="*" /> <referenceRange> <observationRange> <text>6-26</text> </observationRange> </referenceRange> </ observation> </component> <component> < observation moodCode="EVN" classCode="OBS"> < templateId root="2.16.840.1.497696.10.20.22.4.2" /> <id nullFlavor="NA" /> <code codeSystem="local" code="300.0100" displayName="NA - Sodium" /> &lt ;statusCode code="completed" /> <effectiveTime value=& quot;062967291799" /> <valueunit="MEQ/L" xsi:type= "PQ" value="143" /> <referenceRange> <observationRange> <text>136-146</text> </observationRange> </referenceRange> < /observation> </component> <component> < observation moodCode="EVN" classCode="OBS"> < templateId root="2.16.840.1.110344.10.20.22.4.2" /> < id nullFlavor="NA" /> <code codeSystem="local&quot ; code="300.0150" displayName="Potassium" /> &lt ;statusCode code="completed" /> <effectiveTime value=& quot;362554392030" /> <value unit="MEQ/L" xsi:type ="PQ" value="4.2" /> <referenceRange>< observationRange> <text>3.6-5</text> < /observationRange> </referenceRange> </observation& gt; </component> <component> <observation moodCode="EVN" classCode="OBS"> <templateId root="2.16.840.1.022878.10.20.22.4.2" /> <id nullFlavor ="NA" /> <code codeSystem="local" code=" 300.0200" displayName="Chloride" /> <statusCode code="completed" /> <effectiveTime value=" 868139945602" /> <value unit="MEQ/L" xsi:type=& quot;PQ" value="104" /> <referenceRange> <observationRange> <text>98-107</text> </observationRange> </referenceRange> </ observation> </component> <component><observation moodCode="EVN" classCode="OBS"> <templateId root="2.16.840.1.674297.10.20.22.4.2" /> <id nullFlavor ="NA" /> <code codeSystem="local" code=" 300.0250" displayName="CO2 - Carbon Dioxide" /> < statusCode code="completed" /> <effectiveTime value=& quot;987841832692" /> <value unit="MEQ/L" xsi:type ="PQ" value="26" /> <referenceRange> <observationRange> <text>22-30</text> </observationRange> </referenceRange> </ observation> </component> <component> < observation moodCode="EVN" classCode="OBS"> < templateId root="2.16.840.1.010728.10.20.22.4.2" /> < id nullFlavor="NA" /> <code codeSystem="local&quot ; code="300.0300" displayName="Anion Gap" /> < statusCode code="completed" /> <effectiveTime value=& quot;181385653303" /> <value unit="meq/L" xsi:type ="PQ" value="13" /> <referenceRange> <observationRange> <text>5-15</text> </observationRange> </referenceRange> </ observation> </component> <component> < observation moodCode="EVN" classCode="OBS"> < templateId root="2.16.840.1.695244.10.20.22.4.2" /> < id nullFlavor="NA" /> <code codeSystem="local&quot ; code="300.0350" displayName="BUN - Blood Urea Nitrogen" /& gt; <statusCode code="completed" /> <effectiveTime value="678282645889" /> <value unit="MG/DL" xsi:type="PQ" value="36.0" /> < interpretationCode codeSystem="local" code="*" /> < referenceRange> <observationRange> <text> 9-20</text> </observationRange> </ referenceRange> </observation> </component> < component> <observation moodCode="EVN" classCode=" OBS"> <templateId root="2.16.840.1.668880.10..22.4.2& quot; /> <id nullFlavor="NA" /> <code codeSystem="local" code="300.0410" displayName=" Glomerular Filtration Rate" /> <statusCodecode=" completed" /> <effectiveTime value="734973828667" /> <value unit="" xsi:type="PQ" value="63& quot; /> <referenceRange> <observationRange> <text>NRG</text> </observationRange> </referenceRange> </observation> </component> <component> <observation moodCode="EVN" classCode=& quot;OBS"> <templateId root=" 2.16.840.1.044649.10.20.22.4.2" /> <id nullFlavor="NA& quot; /> <code codeSystem="local" code="300.0500& quot; displayName="Glucose" /> <statusCode code=" completed" /> <effectiveTime value="995285370616" /> <value unit="MG/DL" xsi:type="PQ" value=& quot;112" /> <interpretationCode codeSystem="local&quot ; code="*" /> <referenceRange> < observationRange> <text>75-110</text> &lt ;/observationRange> </referenceRange> </observation> </component> <component> <observation moodCode=& quot;EVN" classCode="OBS"> <templateId root=" 2.16.840.1.976038.10.20.22.4.2" /> <id nullFlavor="NA& quot; /> <code codeSystem="local" code="300.2000& quot; displayName="Osmolality,Calculated" /> < statusCode code="completed" /> <effectiveTime value=& quot;952465628452" /> <value unit="MOSM/KG" xsi: type="PQ" value="284" /> <interpretationCode codeSystem="local" code="*" /> < referenceRange> <observationRange> <text>261-280 </text> </observationRange> </referenceRange& gt; </observation> </component> <component> <observation moodCode="EVN" classCode="OBS"> <templateId root="2.16.840.1.017886.10.20.22.4.2" /> <id nullFlavor="NA" /> <code codeSystem=&quot ;local" code="300.2200" displayName="Calcium" /> <statusCode code="completed" /> <effectiveTime value ="096009666602" /> <value unit="MG/DL" xsi: type="PQ" value="9.7" /> <referenceRange> <observationRange> <text>8.4-10.2</text& gt; </observationRange> </referenceRange> </observation> </component> <component> &lt ;observation moodCode="EVN" classCode="OBS"> &lt ;templateId root="2.16.840.1.153418.10.20.22.4.2" /> < id nullFlavor="NA" /> <code codeSystem="local&quot ; code="300.2700" displayName="Bilirubin,Total" /> <statusCode code="completed" /> <effectiveTime value="369981399400" /> <value unit="MG/DL" xsi:type="PQ" value="0.70" /> <referenceRange& gt; <observationRange> <text>0.20-1.30</ text> </observationRange> </referenceRange> </observation> </component> <component> <observation moodCode="EVN" classCode="OBS"> <templateId root="2.16.840.1.153467.10.20.22.4.2" /> <id nullFlavor="NA" /> <code codeSystem=" local" code="300.2975" displayName="Alkaline Phosphatase& quot; /> <statusCode code="completed" /> & lt;effectiveTime value="134679372914" /> <value unit=& quot;U/L" xsi:type="PQ" value="103" /> < referenceRange> <observationRange> <text> 38-126</text> </observationRange> </ referenceRange> </observation> </component> < component> <observation moodCode="EVN" classCode=" OBS"> <templateId root="2.16.840.1.693888.10.20.22.4.2& quot; /> <id nullFlavor="NA" /> <code codeSystem="local" code="300.3050" displayName="AST - Aspartate Amino Transfer" /> <statusCode code=" completed" /> <effectiveTime value="245374894507" /> <value unit="U/L" xsi:type="PQ" value=& quot;27" /> <referenceRange> <observationRange> <text>17-59</text> </observationRange&gt ; </referenceRange> </observation> </ component> <component> <observation moodCode="EVN& quot; classCode="OBS"> <templateId root=" 2.16.840.1.581798.10.20.22.4.2" /> <id nullFlavor="NA& quot; /> <code codeSystem="local" code="300.3110& quot; displayName="TP - Total Protein" /> <statusCode code="completed" /> <effectiveTime value=" 627139449588" /> <value unit="g/dL" xsi:type=&quot ;PQ" value="7.2" /> <referenceRange> <observationRange> <text>6.3-8.2</text> & lt;/observationRange> </referenceRange> </ observation> </component> <component> < observation moodCode="EVN" classCode="OBS"> < templateId root="2.16.840.1.814397.10.20.22.4.2" /> <id nullFlavor="NA" /> <code codeSystem="local" code="300.3120" displayName="Albumin Level" /> & lt;statusCode code="completed" /> <effectiveTime value= "423972020812" /> <value unit="g/dL" xsi:type ="PQ" value="3.9" /> <referenceRange> <observationRange> <text>3.5-5.0</text> </observationRange> </referenceRange> < /observation> </component> <component> < observation moodCode="EVN" classCode="OBS"> < templateId root="2.16.840.1.339689.10.20.22.4.2" /> < id nullFlavor="NA" /> <code codeSystem="local&quot ; code="300.3130" displayName="Globulin" /> < statusCode code="completed" /> <effectiveTime value=" 260601680246" /> <value unit="G/DL" xsi:type=&quot ;PQ" value="3.3" /> <referenceRange> <observationRange> <text>2.4-3.6</text> </observationRange> </referenceRange> </ observation> </component> <component> < observation moodCode="EVN" classCode="OBS"> < templateId root="2.16.840.1.862403.10.20.22.4.2" /> < id nullFlavor="NA" /> <code codeSystem="local&quot ; code="300.3140" displayName="Albumin/Globulin Ratio" /&gt ; <statusCode code="completed" /> < effectiveTime value="157857612688" /> <value unit=&quot ;RATIO" xsi:type="PQ" value="1.2" /> < referenceRange> <observationRange> <text> 1.1-2.2</text> </observationRange> </referenceRange > </observation> </component> <component> <observation moodCode="EVN" classCode="OBS"> <templateId root="2.16.840.1.877266.10.20.22.4.2" /> <id nullFlavor="NA" /> <code codeSystem=& quot;local" code="300.0095" displayName="LICTERUS" /&gt ; <statusCode code="completed" /> < effectiveTime value="668023037111" /> <value unit=&quot ;" xsi:type="PQ" value="< 2" /> < referenceRange> <observationRange> <text>0-7& lt;/text> </observationRange> </referenceRange& gt; </observation> </component> <component> <observation moodCode="EVN" classCode="OBS"> <templateId root="2.16.840.1.727041.10.20.22.4.2" /> <id nullFlavor="NA" /> <code codeSystem=&quot ;local" code="300.0096" displayName="LHEMOLYSIS" /> <statusCode code="completed" /> < effectiveTime value="576646591905" /> <value unit=&quot ;" xsi:type="PQ" value="< 15" /> &lt ;referenceRange> <observationRange> <text&gt ;0-25</text> </observationRange> </ referenceRange> </observation> </component> < component> <observation moodCode="EVN" classCode=" OBS"> <templateId root="2.16.840.1.135043.10.20.22.4.2& quot; /> <id nullFlavor="NA" /> <code codeSystem="local" code="300.0097" displayName=" LTURBIDITY" /> <statusCode code="completed" /> <effectiveTime value="974058204090" /> < value unit="" xsi:type="PQ" value="< 20" /& gt; <referenceRange> <observationRange> <text>0-20</text> </observationRange> & lt;/referenceRange> </observation> </component> <component> <observation moodCode="EVN" classCode=& quot;OBS"> <templateId root=" 2.16.840.1.264364.10.20.22.4.2" /> <id nullFlavor="NA& quot; /> <code codeSystem="local" code="300.3105& quot; displayName="LALTV" /> <statusCode code=" completed" /> <effectiveTime value="378688500259" /> <value unit="U/L" xsi:type="PQ" value=& quot;15" /> <referenceRange> < observationRange> <text>1-50</text> </ observationRange> </referenceRange> </observation&gt ; </component> </organizer> </entry> <entry> <organizer moodCode="EVN" classCode="BATTERY"> <templateId root="2.16.840.1.176344.10.20.22.4.1" /> < id nullFlavor="NA" /> <code codeSystem="local" code="LTROPI" displayName="L300.3490" /> < statusCode code="completed" /> <component> < observation moodCode="EVN" classCode="OBS"> < templateId root="2.16.840.1.904586.10.20.22.4.2" /> < id nullFlavor="NA" /> <code codeSystem="local&quot ; code="300.3500" displayName="Troponin I" /> & lt;statusCode code="completed" /> <effectiveTime value=& quot;656852818507" /> <value unit="ng/ml" xsi:type ="PQ" value="< 0.012" /> < referenceRange> <observationRange> <text>0- 0.12</text> </observationRange> </ referenceRange> </observation> </component> </ organizer> </entry> <entry> <organizer moodCode="EVN " classCode="BATTERY"> <templateId root=" 2.16.840.1.732983.10.20.22.4.1" /> <id nullFlavor="NA" / > <code codeSystem="local" code="JAIME" displayName ="L600.0100" /> <statusCode code="completed" /&gt ; <component> <observation moodCode="EVN" classCode= "OBS"> <templateId root=" 2.16.840.1.773817.10.20.22.4.2" /> <id nullFlavor="NA& quot; /> <code codeSystem="local" code="200.0150& quot; displayName="POTASSIUM" /> <statusCode code=&quot ;completed" /><effectiveTime value="170971522903" /> <value unit="" xsi:type="PQ" value="Urine, Void-CC/notCC" /> <referenceRange> <observationRange& gt; <text>NRG</text> </observationRange& gt; </referenceRange> </observation> </ component> <component> <observation moodCode="EVN& quot; classCode="OBS"> <templateId root=" 2.16.840.1.558394.10.20.22.4.2" /> <id nullFlavor="NA& quot; /> <code codeSystem="local" code="200.0200& quot; displayName="CHLORIDE" /> <statusCode code=" completed" /> <effectiveTime value="668890945072" /> <value unit="" xsi:type="PQ" value=" YELLOW" /> <referenceRange> < observationRange> <text>YELLOW</text> &lt ;/observationRange> </referenceRange> </observation& gt; </component> <component> <observation moodCode="EVN" classCode="OBS"> <templateId root="2.16.840.1.198883.10.20.22.4.2" /> <id nullFlavor ="NA" /> <code codeSystem="local" code="200.0300 " displayName="ANION GAP" /> <statusCode code=& quot;completed" /> <effectiveTime value="157008835854& quot; /> <value unit="" xsi:type="PQ" value=& quot;CLEAR" /> <referenceRange> < observationRange> <text>NRG</text> </ observationRange> </referenceRange></observation> & lt;/component> <component> <observation moodCode=" EVN" classCode="OBS"> <templateId root=" 2.16.840.1.195860.10.20.22.4.2" /> <id nullFlavor="NA& quot; /> <code codeSystem="local" code="200.0350& quot; displayName="BLOOD UREA NITROGEN" /><statusCode code=&quot ;completed" /> <effectiveTime value="144959572242&quot ; /> <value unit="" xsi:type="PQ" value=&quot ;5.5" /> <referenceRange> <observationRange& gt; <text>5.0-8.0</text> </ observationRange> </referenceRange> </observation&gt ; </component> <component> <observation moodCode ="EVN" classCode="OBS"> <templateId root=& quot;2.16.840.1.374765.10.20.22.4.2" /> <id nullFlavor=&quot ;NA" /> <code codeSystem="local" code=" 200.0450" displayName="BUN/CREATININE RATIO" /> < statusCode code="completed" /> <effectiveTime value=& quot;612139027339" /> <value unit="" xsi:type=&quot ;PQ" value="NEGATIVE" /> <referenceRange> & lt;observationRange> <text>NEGATIVE</text> </observationRange> </referenceRange> </ observation> </component> <component> < observation moodCode="EVN" classCode="OBS"> < templateId root="2.16.840.1.599074.10.20.22.4.2" /> < id nullFlavor="NA" /> <code codeSystem="local&quot ; code="200.0500" displayName="GLUCOSE" /> < statusCode code="completed" /> <effectiveTime value=& quot;440313469345" /> <value unit="" xsi:type=& quot;PQ" value="NEGATIVE" /> <referenceRange> <observationRange> <text>NEGATIVE</text& gt;</observationRange> </referenceRange> </ observation> </component> <component> < observation moodCode="EVN" classCode="OBS"> < templateId root="2.16.840.1.460767.10.20.22.4.2" /> < id nullFlavor="NA" /> <code codeSystem="local&quot ; code="200.0600" displayName="CALCIUM" /> < statusCode code="completed" /> <effectiveTime value=& quot;199026694197" /> <value unit="" xsi:type=& quot;PQ" value="NEGATIVE" /> <referenceRange>& lt;observationRange> <text>NEGATIVE</text> </observationRange> </referenceRange> </ observation> </component> <component> < observation moodCode="EVN" classCode="OBS"> < templateId root="2.16.840.1.803493.10.20.22.4.2" /> < id nullFlavor="NA" /> <code codeSystem="local&quot ; code="200.0750" displayName="BILIRUBIN, CONJUG &amp; UNCONJUG" /> <statusCode code="completed" /> <effectiveTime value="785534948919" /> < value unit="" xsi:type="PQ" value="NEGATIVE" /&gt ; <referenceRange> <observationRange> <text>NEGATIVE</text> </observationRange> </referenceRange> </observation> </component&gt ; <component> <observation moodCode="EVN" classCode="OBS"> <templateId root=" 2.16.840.1.059181.10..22.4.2" /> <idnullFlavor="NA& quot; /> <code codeSystem="local" code="200.0325& quot; displayName="Specific [place],Urine" /> < statusCode code="completed" /> <effectiveTime value=& quot;000108378349" /> <value unit="" xsi:type=& quot;PQ" value="1.020" /> <referenceRange> <observationRange> <text>1.015-1.025</text> </observationRange> </referenceRange> & lt;/observation> </component> <component> < observation moodCode="EVN" classCode="OBS"> < templateId root="2.16.840.1.511362.10.20.22.4.2" /> < id nullFlavor="NA" /> <code codeSystem="local&quot ; code="200.0410" displayName="Leukocyte Esterase,Urine" /& gt; <statusCode code="completed" /> < effectiveTime value="150038345007" /> <value unit=&quot ;" xsi:type="PQ" value="NEGATIVE" /> < referenceRange> <observationRange> <text> NEGATIVE</text> </observationRange> </ referenceRange> </observation> </component> < component> <observation moodCode="EVN" classCode=" OBS"> <templateId root="2.16.840.1.201949.10.20.22.4.2& quot; /> <id nullFlavor="NA" /> <code codeSystem="local" code="200.0420"displayName="Nitrate, Urine" /> <statusCode code="completed" /> <effectiveTime value="142690583749" /> <value unit=""xsi:type="PQ" value="NEGATIVE" /> <referenceRange> <observationRange> < text>NEGATIVE</text> </observationRange> < /referenceRange> </observation> </component> &lt ;component> <observation moodCode="EVN" classCode=" OBS"><templateId root="2.16.840.1.793859.10.20.22.4.2" /&gt ; <id nullFlavor="NA" /> <code codeSystem=& quot;local" code="200.0740" displayName="Urobilinogen,Urine& quot; /> <statusCode code="completed" /> < effectiveTime value="366170730533" /> <value unit=&quot ;EU/DL" xsi:type="PQ" value="0.2" /> < referenceRange> <observationRange> <text> NORMAL</text> </observationRange> </ referenceRange> </observation> </component> < component> <observation moodCode="EVN" classCode=" OBS"> <templateId root="2.16.840.1.977989.10.20.22.4.2& quot; /> <id nullFlavor="NA" /> <code codeSystem="local" code="200.0825" displayName="Occult Blood,Urine - Dipstick" /> <statusCode code="completed& quot; /> <effectiveTime value="037025220148" /> & lt;value unit="" xsi:type="PQ" value="TRACE-LYSED&quot ; /> <referenceRange> <observationRange> <text>NEGATIVE</text> </observationRange&gt ; </referenceRange> </observation> </ component> <component> <observation moodCode="EVN& quot; classCode="OBS"> <templateId root=" 2.16.840.1.419573.10.20.22.4.2" /> <id nullFlavor="NA& quot; /> <code codeSystem="local" code="200.0992& quot; displayName="Urine Microscopic (UA)" /> < statusCode code="completed" /> <effectiveTime value=" 432538719155" /> <value unit="" xsi:type="PQ& quot; value="Microscopic Not Ind." /> <referenceRange& gt; <observationRange> <text>NRG</text> </observationRange> </referenceRange> </ observation> </component> </organizer> </entry> & lt;entry> <organizer moodCode="EVN" classCode="BATTERY& quot;> <templateId root="2.16.840.1.239823.10.20.22.4.1" /& gt; <id nullFlavor="NA" /> <code codeSystem=" local" code="LLACTATE" displayName="L200.2067" /> <statusCode code="completed" /> <component> & lt;observation moodCode="EVN" classCode="OBS"> < templateId root="2.16.840.1.691895.10.20.22.4.2" /> < id nullFlavor="NA" /> <code codeSystem="local&quot ; code="300.3230" displayName="Lactate" /> < statusCode code="completed" /> <effectiveTime value=& quot;663813217776" /> <value unit="MMOL/L" xsi: type="PQ" value="0.9" /> <referenceRange> <observationRange> <text>0.6-2.2</text& gt; </observationRange> </referenceRange> < /observation> </component> </organizer> </entry> <entry> <organizer moodCode="EVN" classCode="BATTERY& quot;> <templateId root="2.16.840.1.481327.10.20.22.4.1" /& gt; <id nullFlavor="NA" /> <code codeSystem=" local" code="MCUBLD" displayName="M110.0180" /> <statusCode code="completed" /> <component> <observation moodCode="EVN" classCode="OBS"> <templateId root="2.16.840.1.388054.10.20.22.4.2" /> & lt;id nullFlavor="NA" /> <code codeSystem="local& quot; code="110.0200" displayName="ANTI-D" /> & lt;statusCode code="completed" /> <effectiveTimevalue=& quot;569282280534" /> <value unit="" xsi:type=& quot;PQ" value="Culture Initiated - Results Pending" /> <referenceRange> <observationRange> < text>NRG</text> </observationRange> </ referenceRange> </observation> </component> </ organizer> </entry> <entry> <organizer moodCode="EVN " classCode="BATTERY"> <templateId root=" 2.16.840.1.771939.10.20.22.4.1" /> <id nullFlavor="NA&quot ; /> <code codeSystem="local" code="LLACTATE" displayName="L200.2067" /> <statusCode code="completed " /> <component> <observation moodCode="EVN& quot; classCode="OBS"><templateId root=" 2.16.840.1.289150.10.20.22.4.2" /> <id nullFlavor="NA& quot; /> <code codeSystem="local" code="300.3230& quot; displayName="Lactate" /> <statusCode code=" completed" /> <effectiveTime value="068696660428" /> <value unit="MMOL/L" xsi:type="PQ" value=& quot;0.9" /> <referenceRange> < observationRange> <text>0.6-2.2</text> & lt;/observationRange> </referenceRange> </ observation> </component> </organizer> </entry> & lt;entry> <organizer moodCode="EVN" classCode="BATTERY& quot;> <templateId root="2.16.840.1.713337.10.20.22.4.1" /& gt; <id nullFlavor="NA" /> <code codeSystem=" local" code="LCBCMD" displayName="L100.0075" /> <statusCode code="completed" /> <component> & lt;observation moodCode="EVN" classCode="OBS"> & lt;templateIdroot="2.16.840.1.867597.10.20.22.4.2" /> < id nullFlavor="NA" /> <code codeSystem="local&quot ; code="100.0150" displayName="WBC - WHITE BLOOD COUNT" /&gt ; <statusCode code="completed" /> < effectiveTime value="934221670984" /> <value unit=&quot ;T/MM3" xsi:type="PQ" value="9.1" /> < referenceRange> <observationRange> <text> 4.5-11.0</text> </observationRange> </ referenceRange> </observation> </component> < component> <observation moodCode="EVN" classCode="OBS& quot;> <templateId root="2.16.840.1.057022.10.20.22.4.2&quot ; /> <id nullFlavor="NA" /> <code codeSystem="local" code="100.0250" displayName="RED BLOOD COUNT" /> <statusCode code="completed" /&gt ; <effectiveTimevalue="755735381840" /> < value unit="M/MM3" xsi:type="PQ" value="4.85" /&gt ; <referenceRange> <observationRange> <text>4.50-5.90</text> </observationRange> </referenceRange> </observation> </component> <component> <observation moodCode="EVN" classCode= "OBS"> <templateId root=" 2.16.840.1.599229.10.20.22.4.2" /> <id nullFlavor="NA& quot; /><code codeSystem="local" code="100.0300" displayName="HGB - HEMOGLOBIN" /> <statusCode code=& quot;completed" /> <effectiveTime value="893439905586& quot; /> <value unit="GM/DL" xsi:type="PQ" value="14.2" /> <referenceRange> < observationRange> <text>13.5-17.5</text> </ observationRange> </referenceRange> </observation&gt ; </component> <component> <observation moodCode ="EVN" classCode="OBS"> <templateId root=& quot;[id number]" /> <id nullFlavor=&quot ;NA" /> <code codeSystem="local" code=" 100.0400" displayName="HCT - HEMATOCRIT" /> < statusCode code="completed" /> <effectiveTime value=& quot;[id number]" /> <value unit="%" xsi: type="PQ" value="43.5" /> <referenceRange&gt ; <observationRange> <text>41-53</text> </observationRange> </referenceRange> </ observation> </component> <component> < observation moodCode="EVN" classCode="OBS"> < templateId root="[id number]" /> < id nullFlavor="NA" /> <code codeSystem="local&quot ; code="100.0550" displayName="MEAN CORPUSCULAR VOLUME" /&gt ; <statusCode code="completed" /> < effectiveTime value="453177455821" /> <value unit=&quot ;UM3" xsi:type="PQ" value="89.7" /> < referenceRange> <observationRange> <text> 80-100</text> </observationRange> </ referenceRange> </observation> </component> < component> <observation moodCode="EVN" classCode=" OBS"> <templateId root="2.16.840.1.517918.10.20.22.4.2& quot; /> <id nullFlavor="NA" /> <code codeSystem="local" code="100.0600" displayName="MEAN CORPUSCULAR HGB" /> <statusCode code="completed" /> <effectiveTime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
[2018-04-14] MEDS ORDERED: POLYETHYL GLYCOL 3350 17gm PACKET PO PRN (16:52)
[2018-04-14] MEDS ORDERED: MAG-AL + SIM ORAL LIQUID 30ml PO PRN (16:52)
[2018-04-14] MEDS ORDERED: ACETAMINOPHEN 325 MG TABLET PO PRN ×2 (16:52)
[2018-04-14] MEDS ORDERED: REFRESH CLASSIC Eye Drops 0.4ml EACH EYE PRN ×2 (16:52)
[2018-04-14] MEDS ORDERED: REFRESH CELLUVISC 1% Eye Drops 0.4ml EACH EYE PRN ×2 (16:52→18:15)
[2018-04-14] MEDS ORDERED: SALINE FLUSH 10ml SYRINGE IVF PRN (16:52)
[2018-04-14] MEDS ORDERED: EPINEPHRINE 0.3 MG PO PRN (16:52)
[2018-04-14] MEDS ORDERED: LOPERAMIDE 2 MG CAPSULE PO PRN (16:52)
[2018-04-14] MEDS ORDERED: BISACODYL 10 MG SUPPOSITORY RECTALLY PRN ×2 (16:52)
[2018-04-14] MEDS ORDERED: LORazepam 0.5 MG TABLET PO PRN (16:57)
[2018-04-14] MEDS ORDERED: HALOPERIDOL 0.5 MG TABLET PO PRN (16:57)
[2018-04-14] MEDS ORDERED: HALOPERIDOL 5 MG/ML INJECTION IM PRN (16:57)
[2018-04-14 17:21] VITALS: BMI 22.6
[2018-04-15] MEDS: OMEPRAZOLE 20 MG CAPSULE PO SCH ×2 (08:11→10:53)
[2018-04-15] MEDS: AZITHROMYCIN 500 MG TABLET PO SCH ×2 (08:11→10:53)
[2018-04-15] MEDS: DIGOXIN 125 MCG TABLET PO SCH ×2 (08:11→10:54)
[2018-04-15] MEDS: LEVOTHYROXINE 75 MCG TABLET PO SCH ×2 (08:11→10:53)
[2018-04-15] MEDS: ASPIRIN *EC* 81 MG TABLET PO SCH ×2 (08:11→10:53)
[2018-04-15] MEDS: DUTASTERIDE 0.5 MG CAPSULE PO SCH ×2 (08:12→10:54)
[2018-04-15] MEDS: DOXAZOSIN 2 MG TABLET PO SCH ×2 (08:12→10:54)
[2018-04-15] MEDS: FLUTICASONE NASAL SPRAY 50mcg EA NOSTRIL SCH ×2 (08:14→10:54)
[2018-04-15] MEDS: FUROSEMIDE 20 MG TABLET PO SCH ×2 (08:14→10:55)
[2018-04-15] MEDS: MINOCYCLINE 100 MG CAPSULE PO SCH ×2 (08:15→10:55)
--- NOTE | 2018-04-15 08:58 | History & Physical Report ---
History of Present Illness Date: 04/15/18 Chief complaint: Dementia with behaviors HPI: Mister Alatorre is a 88-year-old male who is known to the Hospital services from recent admission acutely as he was found to have bibasilar pneumonia with leukocytosis. He was treated with antibiotic therapy. Due to his dementia with behavioral disturbance and poorly controlled in the nursing facility, patient was screened and accepted to the [facility] unit under the care of Dr. La for ongoing therapy, recognitions and treatment. Joaquim is seen this morning for initial medical consultation. He is alert,pleasant and eating breakfast. Does not acutely appear to be in any distress. When asked if he is hurting he does point to his right thigh. No skin lesions or wounds are noted. Once denies having any shortness of breath, GI complaints, or other concerns. Did discuss. Diet with regular liquids as recommended by speech therapy. Review of Systems ROS unobtainable: due to mental status Past Medical History Medical History: Medical History (Last Updated 04/13/18 @ 18:06 by Patrick Ferguson MD) Dementia with behavioral disturbance Hypertension Surgical History: Several orthopedic surgeries Family History: Unable to Obtain - Social History Smoking status: Former smoker Substance use type: does not use Alcohol intake frequency: does not drink Current residence: [place] Social history: In reviewing external medication history, it appears that patient's primary care provider is Dr. Price Oliva [address] [place] [address], [address] [place], [place] [address] Medications Home Medications Medication Instructions Recorded Confirmed Type Acetaminophen [Tylenol] 650 mg PO Q4H PRN 04/13/18 04/14/18 History Aspirin [Adult Aspirin] 81 mg PO QAM 04/13/18 04/14/18 History Bisacodyl Supp [Dulcolax] 10 mg RECTALLY DAILY PRN 04/13/18 04/14/18 History Carboxymethylcellulose Sodium 2 drop EACH EYE Q4H PRN 04/13/18 04/14/18 History [Refresh Liquigel] Diazepam [Valium] 5 mg PO Q12H PRN 04/13/18 04/14/18 History Digoxin 125 mcg PO QAM 04/13/18 04/14/18 History Divalproex Sodium [Divalproex 1,000 mg PO HS 04/13/18 04/14/18 History Sodium ER] Doxazosin [Cardura] 2 mg PO DAILY 04/13/18 04/14/18 History Dutasteride 0.5 mg PO QAM 04/13/18 04/14/18 History EPINEPHrine [Epipen 2-Ariel] 0.3 mg IM PRN PRN 04/13/18 04/14/18 History FentaNYL PATCH [Duragesic Patch] 50 mcg TD Q72H 04/13/18 04/14/18 History Fluoxetine HCl 40 mg PO QAM 04/13/18 04/14/18 History Fluticasone Nasal [place] [Flonase] 1 spray EA NOSTRIL QAM 04/13/18 04/14/18 History Furosemide [Lasix 20 mg Tab] 20 mg PO DAILY 04/13/18 04/14/18 History Haloperidol Lactate 5 mg IM Q8H PRN 04/13/18 04/14/18 History Haloperidol [Haldol] 5 mg PO QAM 04/13/18 04/14/18 History Levothyroxine Sodium 75 mcg PO ACB 04/13/18 04/14/18 History Loperamide HCl [Imodium A-D] 2 mg PO QID PRN 04/13/18 04/14/18 History Mag Hydrox/Aluminum Hyd/Simeth 30 ml PO Q4H PRN 04/13/18 04/14/18 History [Alum-Mag Hydroxide-Simeth Liq] Magnesium Hydroxide [Milk of 30 ml PO DAILY PRN 04/13/18 04/14/18 History Magnesia] Minocycline [Minocin] 100 mg PO QAM 04/13/18 04/14/18 History Nystatin [Nystop] 1 applicatio TOP PRN PRN 04/13/18 04/14/18 History OLANZapine [Olanzapine] 10 mg PO BID 04/13/18 04/14/18 History Omeprazole 20 mg PO QAM 04/13/18 04/14/18 History Peg 3350 238 G Bottle [Miralax] 17 gm PO DAILY PRN 04/13/18 04/14/18 History Pseudoephedrine [Sudafed] 30 mg PO Q12H PRN 04/13/18 04/14/18 History Tramadol [Ultram] 50 mg PO Q4HR PRN 04/13/18 04/14/18 History Acetaminophen [Tylenol] 325 - 650 mg PO Q5H PRN tab 04/14/18 04/14/18 Rx Azithromycin 250 mg PO DAILY #6 tab 04/14/18 04/14/18 Rx Nystatin Powder [Mycostatin] 1 applicatio TP PRN PRN #1 bottle 04/14/18 Rx Polyvinyl Alcohol/Povidone O/S 2 drop EACH EYE Q4H PRN ampul 04/14/18 04/14/18 Rx [Refresh Classic] Allergies Allergy/AdvReac Type Severity Reaction Status Date / Time morphine Allergy Verified 04/13/18 13:39 sunflower seed Allergy Verified 04/13/18 13:39 Exam Vital Signs: Temperature 97 F 04/15/18 08:00 Pulse Rate 76 04/15/18 08:11 Respiratory Rate 16 04/15/18 08:00 Blood Pressure 154/82 H 04/15/18 08:00 Pulse Oximetry 96 04/15/18 08:00 Height/Weight/BMI: Height 1.78 m Weight 71.6 kg Body Mass Index 22.6 - Constitutional Present: no acute distress, well nourished, well developed - Routine HEENT Exam Eye: Present: EOMI ENT: Present: mucous membranes moist, dentition normal - Routine Respiratory Exam Present: CTA bilaterally. Absent: wheezes - Routine Cardiovascular Exam Present: RRR, S1, S2. Absent: murmur - Routine Abdominal Exam Present: soft, normoactive bowel sounds, non distended. Absent: tenderness - Routine Extremities Exam Present: no edema, pulses intact, tenderness (right thigh) - Routine Skin Exam Present: dry, warm - Routine Neurological Exam Present: alert, oriented X3, CN II-XII intact - Routine Psychiatric Exam Present: normal affect Results - Labs CBC & Chem 7: 04/15/18 07:15 04/15/18 07:15 Assessment and Plan Assessment and Plan: Impression Dementia with behavioral disturbance Bibasilar pneumonia Pressure ulcer to left heel, present on admission. Arrhythmia, chronic. Diabetes mellitus, type 2. Hypertension. Chronic pain. Allergic rhinitis. Hypothyroidism. GERD. Plan With admission to [facility] unit under the care of Dr. La for further psychiatric evaluation and treatment. Will continue with azithromycin 500 milligrams daily through 04/19/18 for treatment of pneumonia. Recommend pureed Diet and regular thin liquids as recommended by speech therapy on 04/14. Monitor blood pressure Chronically on Minocycline- suspect for chronic skin treatment Home medications continued Code status needs to be verified from family. Encourage patient to participate in unit activities and provide a safe environment 04/15/2018-9 PM-I examined the patient independently. I reviewed this chart, the patient history, and the [employer]'s/PA's documented findings as above. We discussed and formulated the assessment and plan as above with the additions below.-Dr. Lazar The patient was seen this evening in the TV room. He denies any complaints. He denies shortness of breath. He denies pain. He does seem confused. He states he' s eating well. On exam he is alert and in no acute distress. Chest is clear to auscultation. Cardiovascular reveals a regular rate and rhythm with a 3/6 systolic murmur. Abdomen is soft and nontender with positive bowel sounds. Extremities are free of edema. Impression and plan Agree with continued azithromycin for pneumonia Continue diet as recommended by speech therapy. Hopefully they can see him on Tuesday and advance diet TSH and B 12 for normal during his acute hospital stay. Resuscitation Status: Do Not Resuscitate - Physician Narrative Narrative: Date: 04/15/18 Time: 0851 Hospital Course Summary Disclaimer: The visit summary below is not to be considered part of the above Progress Note. Hospital Course: Impression Dementia with behavioral disturbance Bibasilar pneumonia Pressure ulcer to left heel, present on admission. Arrhythmia, chronic. Diabetes mellitus, type 2. Hypertension. Chronic pain. Allergic rhinitis. Hypothyroidism. GERD. Plan With admission to [facility] unit under the care of Dr. La for further psychiatric evaluation and treatment. Will continue with azithromycin 500 milligrams daily through 04/19/18 for treatment of pneumonia. Recommend pureed Diet and regular thin liquids as recommended by speech therapy on 04/14. Monitor blood pressure Chronically on Minocycline- suspect for chronic skin treatment Home medications continued Code status needs to be verified from family. Encourage patient to participate in unit activities and provide a safe environment
--- NOTE | 2018-04-15 13:02 | 24 Hour Neuropsychiatic Eval ---
Date of Admission: 04/14/18 16:29 Chief complaint: "Im fine" History of Present Illness: HPI: 88Y/O CM with a hx of dementia sent from a care facility in [place] for increasing behaviors. Pt was initially admitted to the medical floor for pneumonia and then transferred to the [facility]. Nursing reports pt has been irritable and confused. He can be angry and sexually inappropriate at times. He has been spitting out his meds and has tried to bite staff. On face to face the pt is irritable. he is only oriented to self. He denies any pain. Voices no concerns at this time. STRESSORS: Recent pneumonia. PSYCH ROS: Pt denies feeling depressed. He is irritable and angry at times. He is confused saying he needs to go find a job. He denies psychosis. PAST PSYCH: Unclear at this time. The pt is on Depakote ER 100mg at [facility] Patient Stated Medical History Cerebrovascular Accident Yes: Possibly a few months ago Dementia Yes Peripheral Neuropathy Yes Cataracts Yes: removed Dental Problems Yes: dentures Hearing Loss Yes Other HEENT Yes: Sleep Apnea Cardiac Arrhythmia Yes: chronic afib Coronary Artery Disease Yes Hypertension Yes Pneumonia Yes Sleep Apnea Yes Diabetes Mellitus Type 2 Yes Hx Benign Prostatic Yes Hyperplasia Hx Incontinence Yes Osteoarthritis Yes MRSA Yes: l knee Depression Yes Other Behavioral Health Yes: Aggression,dementia Clinic Medical History (Last Updated 04/13/18 @ 18:06 by Patrick Ferguson MD) Dementia with behavioral disturbance (Acute Medical) Hypertension (Acute Medical) Surgical History: Several orthopedic surgeries - Social History Smoking status: Former smoker Substance use type: does not use Alcohol intake frequency: does not drink Current residence: [place] Mental Status Exam Vitals: Last Vital Signs Temp 97 F 04/15/18 08:00 Pulse 76 04/15/18 08:00 Resp 16 04/15/18 08:00 BP 154/82 H 04/15/18 08:00 Pulse Ox 96 04/15/18 08:00 Height: 1.78 m Weight: 71.6 kg - Mental Status Exam Muscle Strength/Tone: Normal Dressing: Casual Grooming: Good Attitude: Guarded Motor Activity: Agitation Eye Contact: Fair Speech: Slowed Volume: Soft Rhythm: Appropriate Rhythm Orientation: Oriented to person Mood: Neutral Affect: Angry Rate of Thoughts: Delayed Thought Organization: [place] Associations: Illogical Thought Content: Normal Perception/Psychotic: Hx psychosis, not current Language: Naming Impaired Fund of Knowledge: Poor fund of knowledge Memory: Poor-immediate, Poor-recent, Poor-remote Suicidal Ideation: None Homicidal Ideation: None Insight: Poor Judgement: Poor Impulse Control: Poor - Laboratory Result Diagrams: 04/15/18 07:15 04/15/18 07:15 Laboratory Results - last 24 hr 04/14/18 04/14/18 04/15/18 12:01 18:23 07:15 WBC 10.4 RBC 5.15 Hgb 15.0 Hct 45.8 MCV 88.9 MCH 29.1 MCHC 32.8 RDW Std Deviation 49.2 Plt Count 207 MPV 10.3 Immature Gran % (Auto) 1.2 H Neut % (Auto) 67.0 H Lymph % (Auto) 14.1 L [place] % (Auto) 11.5 H Eos % (Auto) 5.7 H Baso % (Auto) 0.5 Neut # (Auto) 7.0 Lymph # (Auto) 1.5 [place] # (Auto) 1.2 H Eos # (Auto) 0.6 H Baso # (Auto) 0.1 Abs Immat Gran (auto) 0.12 H Turbidity Sodium Potassium Chloride Carbon Dioxide Anion Gap BUN Creatinine GFR Calculation BUN/Creatinine Ratio Glucose Calculated Osmolality Calcium Icterus Index Folate 8.6 Specimen Hemolysis Valproic Acid 14.0 L 04/15/18 07:15 WBC RBC Hgb Hct MCV MCH MCHC RDW Std Deviation Plt Count MPV Immature Gran % (Auto) Neut % (Auto) Lymph % (Auto) [place] % (Auto) Eos % (Auto) Baso % (Auto) Neut # (Auto) Lymph # (Auto) [place] # (Auto) Eos # (Auto) Baso # (Auto) Abs Immat Gran (auto) Turbidity < 20 Sodium 144 Potassium 4.1 Chloride 105 Carbon Dioxide 28 Anion Gap 11 BUN 26.0 H Creatinine 0.9 GFR Calculation 80 BUN/Creatinine Ratio 29 H Glucose 108 Calculated Osmolality 283 H Calcium 9.4 Icterus Index < 2 Folate Specimen Hemolysis < 15 Valproic Acid Assessment and Plan (1) Major neurocognitive disorder due to Alzheimer's disease, probable, with behavioral disturbance Problem details: versus Vascular Dementia Current visit: Yes Status: Acute Continue to evaluate and stabilize. Will continue current care
[2018-04-16] MEDS: LEVOTHYROXINE 75 MCG TABLET PO SCH (06:18)
[2018-04-16] MEDS: OMEPRAZOLE 20 MG CAPSULE PO SCH (06:18)
[2018-04-16] MEDS: AZITHROMYCIN 500 MG TABLET PO SCH (11:35)
[2018-04-16] MEDS: FUROSEMIDE 20 MG TABLET PO SCH (11:35)
[2018-04-16] MEDS: MINOCYCLINE 100 MG CAPSULE PO SCH (11:35)
[2018-04-16] MEDS: FLUTICASONE NASAL SPRAY 50mcg EA NOSTRIL SCH (11:36)
[2018-04-16] MEDS: DIGOXIN 125 MCG TABLET PO SCH (11:36)
[2018-04-16] MEDS: DUTASTERIDE 0.5 MG CAPSULE PO SCH (11:37)
[2018-04-16] MEDS: DOXAZOSIN 2 MG TABLET PO SCH (11:37)
[2018-04-16] MEDS: ASPIRIN 81 MG CHEWABLE TABLET PO SCH (11:59)
--- NOTE | 2018-04-16 12:05 | Neuropsych Progress Note ---
Erendira Subjective Date: 04/16/18 - Sujective/Severity of Illness Medications: Acetaminophen (Tylenol) 325 - 650 mg PO Q5H PRN PRN Reason: Discomfort Acetaminophen (Tylenol) 650 mg PO Q4H PRN PRN Reason: Pain /Fever Al Hydroxide/Mg Hydroxide (Maalox Plus) 30 ml PO Q4H PRN PRN Reason: Indigestion Artificial Tears (Refresh Classic) 2 drop EACH EYE Q4H PRN PRN Reason: Dry eyes Artificial Tears (Refresh Celluvisc) 2 drop EACH EYE Q4H PRN PRN Reason: Dry eyes Aspir[facility] (Asa) [facility] [place] Admin: 04/16/18 11:59 Dose: 81 mg Azithromycin (Zithromax) 500 mg PO DAILY [facility] Stop: 04/19/18 23:59 Last Admin: 04/16/18 11:35 Dose: 500 mg Bisacodyl (Dulcolax) 10 mg RECTALLY DAILY PRN PRN Reason: Constipation Bisacodyl (Dulcolax) 10 mg RECTALLY DAILY PRN PRN Reason: Constipation Digoxin (Lanoxin) 125 mcg [facility] [place] Admin: 04/16/18 11:36 Dose: 125 mcg Divalproex Sodium (Depakote Er) 1,000 mg PO HS [facility] Last Admin: 04/15/18 21:28 Dose: 1,000 mg Doxazosin Mesylate (Cardura) 2 mg PO DAILY [facility] Last Admin: 04/16/18 11:37 Dose: 2 mg Dutasteride (Avodart) 0.5 mg PO [facility] Last Admin: 04/16/18 11:37 Dose: 0.5 mg Fentanyl (Duragesic Patch) 50 mcg TD Q72H [facility] Last Admin: 04/15/18 10:46 Dose: 50 mcg Fentanyl Citrate (Duragesic Patch Removal) 1 removal TD Q3D [facility] Last Admin: 04/15/18 10:45 Dose: 1 removal Fluticasone Propionate (Flonase) 1 spray EA NOSTRIL [facility] Last Admin: 04/16/18 11:36 Dose: 1 spray Furosemide (Lasix 20 Mg Tab) 20 mg PO DAILY [facility] Last Admin: 04/16/18 11:35 Dose: 20 mg Haloperidol (Haldol) 0.5 mg PO Q6H PRN PRN Reason: Extreme agitation Haloperidol Lactate (Haldol) 0.5 mg IM Q6H PRN PRN Reason: Extreme agitation Levothyroxine Sodium (Synthroid) 75 mcg PO [facility] Last Admin: 04/16/18 06:18 Dose: 75 mcg Loperamide HCl (Imodium) 2 mg PO QID PRN PRN Reason: Diarrhea Lorazepam (Ativan) 0.5 mg PO Q6H PRN PRN Reason: Extreme agitation Lorazepam (Ativan Inj) 0.5 mg IM Q6H PRN PRN Reason: Extreme agitation Magnesium Hydroxide (Mom) 30 ml PO DAILY PRN PRN Reason: Constipation Minocycline HCl (Minocin) 100 mg PO [facility] Last Admin: 04/16/18 11:35 Dose: 100 mg Non-Formulary Medication (Epinephrine Pen) 0.3 mg PO PRN PRN PRN Reason: PRN orders Nystatin (Mycostatin) 1 applic TP PRN PRN PRN Reason: Apply to groin area as needed Omeprazole (Prilosec) 20 mg PO [facility] Last Admin: 04/16/18 06:18 Dose: 20 mg Polyethylene Glycol (Miralax) 17 gm PO DAILY PRN PRN Reason: Constipation Sodium Chloride (Iv Flush) 10 - 80 ml IVF PRN PRN PRN Reason: Flushing Subjective: Pt seen and chart examined. Nursing reports pt is doing fairly well. He is irritable at times but is redirectable. No aggression. On face to face the pt is confused. He is only oriented to self. Denies any pain. Tolerating meds Start Time: 11:30 Stop Time: 11:45 Mental Status Exam Vitals: Last Vital Signs Temp 96.3 F L 04/15/18 19:36 Pulse 60 04/16/18 11:36 Resp 19 04/15/18 19:36 BP 135/70 04/15/18 19:36 Pulse Ox 96 04/15/18 19:36 Height: 1.78 m Weight: 71.6 kg - Mental Status Exam Muscle Strength/Tone: Normal Dressing: Casual Grooming: Good Attitude: Guarded Motor Activity: Agitation Eye Contact: Fair Speech: Slowed Volume: Soft Rhythm: Appropriate Rhythm Orientation: Oriented to person Mood: Neutral Rate of Thoughts: Delayed Thought Organization: [place] Associations: Illogical Thought Content: Normal Perception/Psychotic: Hx psychosis, not current Language: Naming Impaired Fund of Knowledge: Poor fund of knowledge Memory: Poor-immediate, Poor-recent, Poor-remote Suicidal Ideation: None Homicidal Ideation: None Insight: Poor Judgement: Poor Impulse Control: Poor - Laboratory Result Diagrams: 04/15/18 07:15 04/15/18 07:15 Assessment and Plan (1) Major neurocognitive disorder due to Alzheimer's disease, probable, with behavioral disturbance Problem details: versus Vascular Dementia Current visit: Yes Status: Acute Hospital Course Summary Disclaimer: The visit summary below is not to be considered part of the above Progress Note. Hospital Course: Impression Dementia with behavioral disturbance Bibasilar pneumonia Pressure ulcer to left heel, present on admission. Arrhythmia, chronic. Diabetes mellitus, type 2. Hypertension. Chronic pain. Allergic rhinitis. Hypothyroidism. GERD. Plan With admission to [facility] unit under the care of Dr. La for further psychiatric evaluation and treatment. Will continue with azithromycin 500 milligrams daily through 04/19/18 for treatment of pneumonia. Recommend pureed Diet and regular thin liquids as recommended by speech therapy on 04/14. Monitor blood pressure Chronically on Minocycline- suspect for chronic skin treatment Home medications continued Code status needs to be verified from family. Encourage patient to participate in unit activities and provide a safe environment 04/16/18 psych note- Pt is irritable but redirectable. Continue current care
[2018-04-17] MEDS: LEVOTHYROXINE 75 MCG TABLET PO SCH (06:22)
[2018-04-17] MEDS: OMEPRAZOLE 20 MG CAPSULE PO SCH (06:22)
--- NOTE | 2018-04-17 09:07 | Neuropsych Progress Note ---
Erendira Subjective Date: 04/17/18 - Sujective/Severity of Illness Medications: Acetaminophen (Tylenol) 325 - 650 mg PO Q5H PRN PRN Reason: Discomfort Acetaminophen (Tylenol) 650 mg PO Q4H PRN PRN Reason: Pain /Fever Al Hydroxide/Mg Hydroxide (Maalox Plus) 30 ml PO Q4H PRN PRN Reason: Indigestion Artificial Tears (Refresh Classic) 2 drop EACH EYE Q4H PRN PRN Reason: Dry eyes Artificial Tears (Refresh Celluvisc) 2 drop EACH EYE Q4H PRN PRN Reason: Dry eyes Aspirin (Asa) 81 mg [facility] [place] Last Admin: 04/16/18 11:59 Dose: 81 mg Azithromycin (Zithromax) 500 mg PO DAILY [facility] Stop: 04/19/18 23:59 Last Admin: 04/16/18 11:35 Dose: 500 mg Bisacodyl (Dulcolax) 10 mg RECTALLY DAILY PRN PRN Reason: Constipation Bisacodyl (Dulcolax) 10 mg RECTALLY DAILY PRN PRN Reason: Constipation Digoxin (Lanoxin) 125 mcg PO [facility]AJ[facility] [place] Last Admin: 04/16/18 11:36 Dose: 125 mcg Divalproex Sodium (Depakote Er) 1,000 mg PO [facility] Last Admin: 04/17/18 02:23 Dose: Not Given Doxazosin Mesylate (Cardura) 2 mg PO DAILY [facility] Last Admin: 04/16/18 11:37 Dose: 2 mg Dutasteride (Avodart) 0.5 mg PO [facility] Last Admin: 04/16/18 11:37 Dose: 0.5 mg Fentanyl (Duragesic Patch) 50 mcg TD Q72H [facility] Last Admin: 04/15/18 10:46 Dose: 50 mcg Fentanyl Citrate (Duragesic Patch Removal) 1 removal TD Q3D [facility] Last Admin: 04/15/18 10:45 Dose: 1 removal Fluticasone Propionate (Flonase) 1 spray EA NOSTRIL [facility] Last Admin: 04/16/18 11:36 Dose: 1 spray Furosemide (Lasix 20 Mg Tab) 20 mg PO DAILY [facility] Last Admin: 04/16/18 11:35 Dose: 20 mg Haloperidol (Haldol) 0.5 mg PO Q6H PRN PRN Reason: Extreme agitation Haloperidol Lactate (Haldol) 0.5 mg IM Q6H PRN PRN Reason: Extreme agitation Levothyroxine Sodium (Synthroid) 75 mcg PO ACB [facility] Last Admin: 04/17/18 06:22 Dose: 75 mcg Loperamide HCl (Imodium) 2 mg PO QID PRN PRN Reason: Diarrhea Lorazepam (Ativan) 0.5 mg PO Q6H PRN PRN Reason: Extreme agitation Lorazepam (Ativan Inj) 0.5 mg IM Q6H PRN PRN Reason: Extreme agitation Magnesium Hydroxide (Mom) 30 ml PO DAILY PRN PRN Reason: Constipation Minocycline HCl (Minocin) 100 mg PO [facility] Last Admin: 04/16/18 11:35 Dose: 100 mg Non-Formulary Medication (Epinephrine Pen) 0.3 mg PO PRN PRN PRN Reason: PRN orders Nystatin (Mycostatin) 1 applic TP PRN PRN PRN Reason: Apply to groin area as needed Omeprazole (Prilosec) 20 mg PO [facility] Last Admin: 04/17/18 06:22 Dose: 20 mg Polyethylene Glycol (Miralax) 17 gm PO DAILY PRN PRN Reason: Constipation Sodium Chloride (Iv Flush) 10 - 80 ml IVF PRN PRN PRN Reason: Flushing Subjective: Patient seen and chart reviewed. Case discussed with treatment team. On interview, patient says he is "good" but otherwise looks up at me and does not answer any questions. He appears to be comfortable and relaxed. Nursing staff report patient was combative with HS cares but otherwise Patient has been adherent with medications. Patient slept well overnight. VSS. Patient is eating well. Psychotropic PRNs required in the past 24 hours: none. VPA level was 14.0 on admission indicating that he had not been adherent with Depakote. Start Time: 09:00 Stop Time: 09:20 Mental Status Exam Vitals: Last Vital Signs Temp 96.3 F L 04/16/18 19:14 Pulse 92 04/16/18 19:14 Resp 19 04/16/18 19:14 BP 141/65 H 04/16/18 19:14 Pulse Ox 92 04/16/18 19:14 Height: 1.78 m Weight: 71.6 kg - Mental Status Exam Muscle Strength/Tone: Weak Dressing: Casual Grooming: Fair Attitude: Cooperative Motor Activity: Retardation Eye Contact: Fair Speech: Slowed Volume: Soft Rhythm: Appropriate Rhythm Sensory: Alert Orientation: Disoriented to time, Disoriented to place, Disoriented to situation , Oriented to person Mood: Neutral Affect: Relaxed (increased mood lability in evening) Rate of Thoughts: Delayed Thought Organization: [place] Associations: Illogical Abstract Reasoning: Impaired, concrete Thought Content: Other (poverty of thought) Perception/Psychotic: Hx psychosis, not current Language: Naming Impaired Fund of Knowledge: Poor fund of knowledge Memory: Poor-immediate, Poor-recent, Poor-remote Suicidal Ideation: None Homicidal Ideation: None Insight: Impaired Judgement: Impaired Impulse Control: Poor - Laboratory Result Diagrams: 04/15/18 07:15 04/15/18 07:15 Assessment and Plan (1) Major neurocognitive disorder due to Alzheimer's disease, probable, with behavioral disturbance Problem details: versus Vascular Dementia Current visit: Yes Status: Acute Will change Depakote ER dose to 1800 to target evening mood lability, ensure adherence and recheck VPA level on 04/18 or 04/19. Hospital Course Summary Disclaimer: The visit summary below is not to be considered part of the above Progress Note. Hospital Course: Impression Dementia with behavioral disturbance Bibasilar pneumonia Pressure ulcer to left heel, present on admission. Arrhythmia, chronic. Diabetes mellitus, type 2. Hypertension. Chronic pain. Allergic rhinitis. Hypothyroidism. GERD. Plan With admission to [facility] unit under the care of Dr. La for further psychiatric evaluation and treatment. Will continue with azithromycin 500 milligrams daily through 04/19/18 for treatment of pneumonia. Recommend pureed Diet and regular thin liquids as recommended by speech therapy on 04/14. Monitor blood pressure Chronically on Minocycline- suspect for chronic skin treatment Home medications continued Code status needs to be verified from family. Encourage patient to participate in unit activities and provide a safe environment 04/16/18 psych note- Pt is irritable but redirectable. Continue current care 04/17/18 Psych: Will change Depakote ER dose to 1800 to target evening mood lability, ensure adherence and recheck VPA level on 04/18 or 04/19.
[2018-04-17] MEDS: ASPIRIN 81 MG CHEWABLE TABLET PO SCH (10:34)
[2018-04-17] MEDS: AZITHROMYCIN 500 MG TABLET PO SCH (10:35)
[2018-04-17] MEDS: DIGOXIN 125 MCG TABLET PO SCH (10:35)
[2018-04-17] MEDS: DOXAZOSIN 2 MG TABLET PO SCH (10:37)
[2018-04-17] MEDS: DUTASTERIDE 0.5 MG CAPSULE PO SCH (10:37)
[2018-04-17] MEDS: MINOCYCLINE 100 MG CAPSULE PO SCH (10:37)
[2018-04-17] MEDS: FUROSEMIDE 20 MG TABLET PO SCH (10:38)
[2018-04-17] MEDS: FLUTICASONE NASAL SPRAY 50mcg EA NOSTRIL SCH (10:38)
--- NOTE | 2018-04-17 13:28 | Wound Care Progress Note ---
Wound Center Progress Note: Went to see pt in [facility] unit where he was eating lunch however, staff moved him to the bed for assessment. Pt is very ridged which makes it diffcult to see the heels even when using a mirror for help. At this time the left heel is undressed and cleaned. At this time Iodosorb reapplied and a foam dressing, when pt is in bed yellow tevin boots are in use. Right heel is undressed wound cleaned and measured 1.7 x 1 x 0.7, wound is soft , will continue Iodosorb for debridment, cover with a foam drsg. Staff aware that the yellow tevin boots should be on when pt in bed, and to use whatever measure of off loading that they can use for his heels.
[2018-04-18] MEDS: OMEPRAZOLE 20 MG CAPSULE PO SCH (10:46)
[2018-04-18] MEDS: DIGOXIN 125 MCG TABLET PO SCH (10:47)
[2018-04-18] MEDS: LEVOTHYROXINE 75 MCG TABLET PO SCH (10:47)
[2018-04-18] MEDS: AZITHROMYCIN 500 MG TABLET PO SCH (10:47)
[2018-04-18] MEDS: ASPIRIN 81 MG CHEWABLE TABLET PO SCH (10:50)
[2018-04-18] MEDS: DUTASTERIDE 0.5 MG CAPSULE PO SCH (10:50)
[2018-04-18] MEDS: MINOCYCLINE 100 MG CAPSULE PO SCH (10:50)
[2018-04-18] MEDS: FUROSEMIDE 20 MG TABLET PO SCH (10:51)
[2018-04-18] MEDS: DOXAZOSIN 2 MG TABLET PO SCH (10:51)
[2018-04-18] MEDS: FLUTICASONE NASAL SPRAY 50mcg EA NOSTRIL SCH (11:07)
--- NOTE | 2018-04-18 14:08 | Neuropsych Progress Note ---
[facility] Subjective Date: 04/19/18 - Sujective/Severity of Illness Medications: Acetaminophen (Tylenol) 325 - 650 mg PO Q5H PRN PRN Reason: Discomfort Acetaminophen (Tylenol) 650 mg PO Q4H PRN PRN Reason: Pain /Fever Al Hydroxide/Mg Hydroxide (Maalox Plus) 30 ml PO Q4H PRN PRN Reason: Indigestion Artificial Tears (Refresh Classic) 2 drop EACH EYE Q4H PRN PRN Reason: Dry eyes Artificial Tears (Refresh Celluvisc) 2 drop EACH EYE Q4H PRN PRN Reason: Dry eyes Aspirin (Asa) [facility] [place] Admin: 04/18/18 10:50 Dose: 81 mg Azithromycin (Zithromax) 500 mg PO DAILY [facility] Stop: 04/19/18 23:59 Last Admin: 04/18/18 10:47 Dose: 500 mg Bisacodyl (Dulcolax) 10 mg RECTALLY DAILY PRN PRN Reason: Constipation Bisacodyl (Dulcolax) 10 mg RECTALLY DAILY PRN PRN Reason: Constipation Digoxin (Lanoxin) 125 mcg [place] [facility] [place] Admin: 04/18/18 10:47 Dose: 125 mcg Divalproex Sodium (Depakote Er) 1,000 mg PO 18 [facility] Last Admin: 04/17/18 18:19 Dose: 1,000 mg Doxazosin Mesylate (Cardura) 2 mg PO DAILY [facility] Last Admin: 04/18/18 10:51 Dose: 2 mg Dutasteride (Avodart) 0.5 mg PO [facility] Last Admin: 04/18/18 10:50 Dose: 0.5 mg Fentanyl (Duragesic Patch) 50 mcg TD Q72H [facility] Last Admin: 04/18/18 11:06 Dose: 50 mcg Fentanyl Citrate (Duragesic Patch Removal) 1 removal TD Q3D [facility] Last Admin: 04/18/18 11:06 Dose: 1 removal Fluticasone Propionate (Flonase) 1 spray EA NOSTRIL [facility] Last Admin: 04/18/18 11:07 Dose: 1 spray Furosemide (Lasix 20 Mg Tab) 20 mg PO DAILY [facility] Last Admin: 04/18/18 10:51 Dose: 20 mg Haloperidol (Haldol) 0.5 mg PO Q6H PRN PRN Reason: Extreme agitation Haloperidol Lactate (Haldol) 0.5 mg IM Q6H PRN PRN Reason: Extreme agitation Levothyroxine Sodium (Synthroid) 75 mcg PO B [facility] Last Admin: 04/18/18 10:47 Dose: 75 mcg Loperamide HCl (Imodium) 2 mg PO QID PRN PRN Reason: Diarrhea Lorazepam (Ativan) 0.5 mg PO Q6H PRN PRN Reason: Extreme agitation Lorazepam (Ativan Inj) 0.5 mg IM Q6H PRN PRN Reason: Extreme agitation Magnesium Hydroxide (Mom) 30 ml PO DAILY PRN PRN Reason: Constipation Minocycline HCl (Minocin) 100 mg PO [facility] Last Admin: 04/18/18 10:50 Dose: 100 mg Non-Formulary Medication (Epinephrine Pen) 0.3 mg PO PRN PRN PRN Reason: PRN orders Nystatin (Mycostatin) 1 applic TP PRN PRN PRN Reason: Apply to groin area as needed Omeprazole (Prilosec) 20 mg PO B [facility] Last Admin: 04/18/18 10:46 Dose: 20 mg Polyethylene Glycol (Miralax) 17 gm PO DAILY PRN PRN Reason: Constipation Sodium Chloride (Iv Flush) 10 - 80 ml IVF PRN PRN PRN Reason: Flushing Subjective: Patient seen and chart reviewed. Case discussed with treatment team. Patient is sleeping at time of rounds. Nursing staff report patient has been more cooperative. He was observed cheeking his medications but this is not believed to be intentional. Patient slept well overnight. VSS. Patient is eating well. Psychotropic PRNs required in the past 24 hours: none. VPA level was 14.0 on admission indicating that he had not been adherent with Depakote. Start Time: 14:00 Stop Time: 14:20 Mental Status Exam Vitals: Last Vital Signs Temp 97.2 F 04/18/18 08:00 Pulse 75 04/18/18 10:47 Resp 16 04/18/18 08:00 BP 123/77 04/18/18 08:00 Pulse Ox 96 04/18/18 08:00 Height: 1.78 m Weight: 71.6 kg - Mental Status Exam Muscle Strength/Tone: Weak Dressing: Casual Grooming: Fair Attitude: Cooperative Motor Activity: Retardation Eye Contact: Fair Speech: Slowed Volume: Soft Rhythm: Appropriate Rhythm Orientation: Disoriented to time, Disoriented to place, Disoriented to situation , Oriented to person Mood: Neutral Rate of Thoughts: Delayed Thought Organization: [place] Associations: Illogical Abstract Reasoning: Impaired, concrete Thought Content: Other (poverty of thought) Perception/Psychotic: Hx psychosis, not current Language: Naming Impaired Fund of Knowledge: Poor fund of knowledge Memory: Poor-immediate, Poor-recent, Poor-remote Suicidal Ideation: None Homicidal Ideation: None Insight: Impaired Judgement: Impaired Impulse Control: Poor - Laboratory Result Diagrams: 04/15/18 07:15 04/15/18 07:15 Assessment and Plan (1) Major neurocognitive disorder due to Alzheimer's disease, probable, with behavioral disturbance Problem details: versus Vascular Dementia Current visit: Yes Status: Acute Will continue current care with plan to check trough VPA level on 04/20 and adjust accordingly. Hospital Course Summary Disclaimer: The visit summary below is not to be considered part of the above Progress Note. Hospital Course: Impression Dementia with behavioral disturbance Bibasilar pneumonia Pressure ulcer to left heel, present on admission. Arrhythmia, chronic. Diabetes mellitus, type 2. Hypertension. Chronic pain. Allergic rhinitis. Hypothyroidism. GERD. Plan With admission to [facility] unit under the care of Dr. La for further psychiatric evaluation and treatment. Will continue with azithromycin 500 milligrams daily through 04/19/18 for treatment of pneumonia. Recommend pureed Diet and regular thin liquids as recommended by speech therapy on 04/14. Monitor blood pressure Chronically on Minocycline- suspect for chronic skin treatment Home medications continued Code status needs to be verified from family. Encourage patient to participate in unit activities and provide a safe environment 04/16/18 psych note- Pt is irritable but redirectable. Continue current care 04/17/18 Psych: Will change Depakote ER dose to 1800 to target evening mood lability, ensure adherence and recheck VPA level on 04/18 or 04/19. 04/18/18 Psych: Will continue current care with plan to check trough VPA level on 04/20 and adjust accordingly.
[2018-04-19] MEDS: OMEPRAZOLE 20 MG CAPSULE PO SCH (09:47)
[2018-04-19] MEDS: LEVOTHYROXINE 75 MCG TABLET PO SCH (09:47)
--- NOTE | 2018-04-19 10:32 | Neuropsych Progress Note ---
[facility] Subjective Date: 04/20/18 - Sujective/Severity of Illness Medications: Acetaminophen (Tylenol) 325 - 650 mg PO Q5H PRN PRN Reason: Discomfort Acetaminophen (Tylenol) 650 mg PO Q4H PRN PRN Reason: Pain /Fever Al Hydroxide/Mg Hydroxide (Maalox Plus) 30 ml PO Q4H PRN PRN Reason: Indigestion Artificial Tears (Refresh Classic) 2 drop EACH EYE Q4H PRN PRN Reason: Dry eyes Artificial Tears (Refresh Celluvisc) 2 drop EACH EYE Q4H PRN PRN Reason: Dry eyes Aspir[facility] (Asa) [facility] [place] Admin: 04/18/18 10:50 Dose: 81 mg Azithromycin (Zithromax) 500 mg PO DAILY [facility] [place] Stop: 04/19/18 23:59 Last Admin: 04/18/18 10:47 Dose: 500 mg Bisacodyl (Dulcolax) 10 mg RECTALLY DAILY PRN PRN Reason: Constipation Bisacodyl (Dulcolax) 10 mg RECTALLY DAILY PRN PRN Reason: Constipation Digoxin (Lanoxin) 125 [facility] [place] [facility] [place] Admin: 04/18/18 10:47 Dose: 125 mcg Divalproex Sodium (Depakote Er) 1,000 mg PO 18 [facility] [place] Last Admin: 04/18/18 18:08 Dose: 1,000 mg Doxazosin Mesylate (Cardura) 2 mg PO DAILY [facility] [place] Last Admin: 04/18/18 10:51 Dose: 2 mg Dutasteride (Avodart) 0.5 mg PO [facility] Last Admin: 04/18/18 10:50 Dose: 0.5 mg Fentanyl (Duragesic Patch) 50 mcg TD Q72H [facility] [place] Last Admin: 04/18/18 11:06 Dose: 50 mcg Fentanyl Citrate (Duragesic Patch Removal) 1 removal TD Q3D [facility] [place] Last Admin: 04/18/18 11:06 Dose: 1 removal Fluticasone Propionate (Flonase) 1 spray EA NOSTRIL [facility] Last Admin: 04/18/18 11:07 Dose: 1 spray Furosemide (Lasix 20 Mg Tab) 20 mg PO DAILY [facility] [place] Last Admin: 04/18/18 10:51 Dose: 20 mg Haloperidol (Haldol) 0.5 mg PO Q6H PRN PRN Reason: Extreme agitation Haloperidol Lactate (Haldol) 0.5 mg IM Q6H PRN PRN Reason: Extreme agitation Levothyroxine Sodium (Synthroid) 75 mcg PO [facility] Last Admin: 04/19/18 09:47 Dose: 75 mcg Loperamide HCl (Imodium) 2 mg PO QID PRN PRN Reason: Diarrhea Lorazepam (Ativan) 0.5 mg PO Q6H PRN PRN Reason: Extreme agitation Lorazepam (Ativan Inj) 0.5 mg IM Q6H PRN PRN Reason: Extreme agitation Magnesium Hydroxide (Mom) 30 ml PO DAILY PRN PRN Reason: Constipation Minocycline HCl (Minocin) 100 mg PO [facility] Last Admin: 04/18/18 10:50 Dose: 100 mg Non-Formulary Medication (Epinephrine Pen) 0.3 mg PO PRN PRN PRN Reason: PRN orders Nystatin (Mycostatin) 1 applic TP PRN PRN PRN Reason: Apply to groin area as needed Omeprazole (Prilosec) 20 mg PO [facility] Last Admin: 04/19/18 09:47 Dose: 20 mg Polyethylene Glycol (Miralax) 17 gm PO DAILY PRN PRN Reason: Constipation Sodium Chloride (Iv Flush) 10 - 80 ml IVF PRN PRN PRN Reason: Flushing Subjective: Patient seen and chart reviewed. Case discussed with treatment team. Patient is again sleeping at time of rounds as he frequently sleeps during day. Nursing staff report patient has been more cooperative overall, including with showers. He requires encouragement/direction to take his medications but this is not believed to be intentional. Overall he has been pleasant and often smiles /winks at nursing staff. He occasionally yells out for Sola, his . Patient slept 9+ hours overnight. VSS. Patient is eating well but requires assistance to do so. Psychotropic PRNs required in the past 24 hours: none. VPA level was 14.0 on admission indicating that he had not been adherent with Depakote. Start Time: 08:20 Stop Time: 08:40 Mental Status Exam Vitals: Last Vital Signs Temp 97.2 F 04/18/18 20:23 Pulse 86 04/18/18 20:23 Resp 19 04/18/18 20:23 BP 103/64 04/18/18 20:23 Pulse Ox 92 04/18/18 20:23 Height: 1.78 m Weight: 71.6 kg - Mental Status Exam Muscle Strength/Tone: Weak Dressing: Casual Grooming: Fair Attitude: Cooperative Motor Activity: Retardation Eye Contact: Fair Speech: Slowed Volume: Soft Rhythm: Appropriate Rhythm Orientation: Disoriented to time, Disoriented to place, Disoriented to situation , Oriented to person Mood: Neutral Affect: Relaxed Rate of Thoughts: Delayed Thought Organization: [place] Associations: Illogical Abstract Reasoning: Impaired, concrete Thought Content: Other (poverty of thought) Perception/Psychotic: Hx psychosis, not current Language: Naming Impaired Fund of Knowledge: Poor fund of knowledge Memory: Poor-immediate, Poor-recent, Poor-remote Suicidal Ideation: None Homicidal Ideation: None Insight: Impaired Judgement: Impaired Impulse Control: Fair - Laboratory Result Diagrams: 04/15/18 07:15 04/15/18 07:15 Assessment and Plan (1) Major neurocognitive disorder due to Alzheimer's disease, probable, with behavioral disturbance Problem details: versus Vascular Dementia Other medical conditions: Bibasilar pneumonia Pressure ulcer to left heel, present on admission. Arrhythmia, chronic. Diabetes mellitus, type 2. Hypertension. Chronic pain. Allergic rhinitis. Hypothyroidism. GERD. Current visit: Yes Status: Acute (2) Delirium due to another medical condition Problem details: pneumonia Current visit: Yes Status: Resolved Depakote ER switched to sprinkles, 250mg PO in AM and 750mg in evening after nursing reported concern that he was not able to swallow tablet and other meds are crushed.. Will plan for trough VPA level prior to HS dose on 04/20 and adjust if needed. Patient doing well clinically. Hospital Course Summary Disclaimer: The visit summary below is not to be considered part of the above Progress Note. Hospital Course: Impression Dementia with behavioral disturbance Bibasilar pneumonia Pressure ulcer to left heel, present on admission. Arrhythmia, chronic. Diabetes mellitus, type 2. Hypertension. Chronic pain. Allergic rhinitis. Hypothyroidism. GERD. Plan With admission to [facility] unit under the care of Dr. La for further psychiatric evaluation and treatment. Will continue with azithromycin 500 milligrams daily through 04/19/18 for treatment of pneumonia. Recommend pureed Diet and regular thin liquids as recommended by speech therapy on 04/14. Monitor blood pressure Chronically on Minocycline- suspect for chronic skin treatment Home medications continued Code status needs to be verified from family. Encourage patient to participate in unit activities and provide a safe environment 04/16/18 psych note- Pt is irritable but redirectable. Continue current care 04/17/18 Psych: Will change Depakote ER dose to 1800 to target evening mood lability, ensure adherence and recheck VPA level on 04/18 or 04/19. 04/18/18 Psych: Will continue current care with plan to check trough VPA level on 04/20 and adjust accordingly. 04/19/18 Psych: Depakote ER switched to sprinkles, 250mg PO in AM and 750mg in evening after nursing reported concern that he was not able to swallow tablet and other meds are crushed.. Will plan for trough VPA level prior to HS dose on 04/20 and adjust if needed. Patient doing well clinically.
[2018-04-19] MEDS: ASPIRIN 81 MG CHEWABLE TABLET PO SCH (11:16)
[2018-04-19] MEDS: AZITHROMYCIN 500 MG TABLET PO SCH (11:16)
[2018-04-19] MEDS: DIGOXIN 125 MCG TABLET PO SCH (11:16)
[2018-04-19] MEDS: MINOCYCLINE 100 MG CAPSULE PO SCH (11:16)
[2018-04-19] MEDS: DUTASTERIDE 0.5 MG CAPSULE PO SCH (11:16)
[2018-04-19] MEDS: DOXAZOSIN 2 MG TABLET PO SCH (11:16)
[2018-04-19] MEDS: FUROSEMIDE 20 MG TABLET PO SCH (11:17)
[2018-04-19] MEDS: FLUTICASONE NASAL SPRAY 50mcg EA NOSTRIL SCH (11:17)
[2018-04-19] MEDS ORDERED: DIVALPROEX SPRINKLE 125 MG CAPSULE PO ONE (17:57)
[2018-04-20] MEDS: OMEPRAZOLE 20 MG CAPSULE PO SCH (08:18)
[2018-04-20] MEDS: LEVOTHYROXINE 75 MCG TABLET PO SCH (08:18)
[2018-04-20] MEDS: DIGOXIN 125 MCG TABLET PO SCH (08:19)
[2018-04-20] MEDS: DUTASTERIDE 0.5 MG CAPSULE PO SCH (08:19)
[2018-04-20] MEDS: MINOCYCLINE 100 MG CAPSULE PO SCH (08:19)
[2018-04-20] MEDS: DOXAZOSIN 2 MG TABLET PO SCH (08:20)
[2018-04-20] MEDS: ASPIRIN 81 MG CHEWABLE TABLET PO SCH (08:20)
[2018-04-20] MEDS: FUROSEMIDE 20 MG TABLET PO SCH (08:20)
[2018-04-20] MEDS: FLUTICASONE NASAL SPRAY 50mcg EA NOSTRIL SCH (08:21)
[2018-04-20] MEDS: DIVALPROEX SPRINKLE 125 MG CAPSULE PO SCH (12:26)
--- NOTE | 2018-04-20 12:36 | Neuropsych Progress Note ---
[facility] Subjective Date: 04/21/18 - Sujective/Severity of Illness Medications: Acetaminophen (Tylenol) 325 - 650 mg PO Q5H PRN PRN Reason: Discomfort Last Admin: 04/20/18 08:25 Dose: 650 mg Al Hydroxide/Mg Hydroxide (Maalox Plus) 30 ml PO Q4H PRN PRN Reason: Indigestion Artificial Tears (Refresh Classic) 2 drop EACH EYE Q4H PRN PRN Reason: Dry eyes Artificial Tears (Refresh Celluvisc) 2 drop EACH EYE Q4H PRN PRN Reason: Dry eyes [facility] (Asa) [facility] [place] [facility] Admin: 04/20/18 08:20 Dose: 81 mg Bisacodyl (Dulcolax) 10 mg RECTALLY DAILY PRN PRN Reason: Constipation Digoxin (Lanoxin) 125 [facility] [place] [facility] Admin: 04/20/18 08:19 Dose: 125 mcg Divalproex Sodium (Depakote Sprinkle) 250 mg PO DAILY [facility] Doxazosin Mesylate (Cardura) 2 mg PO DAILY [facility] Last Admin: 04/20/18 08:20 Dose: 2 mg Dutasteride (Avodart) 0.5 mg [facility] [place] [facility] Admin: 04/20/18 08:19 Dose: 0.5 mg Fentanyl (Duragesic Patch) 50 mcg TD Q72H [facility] Last Admin: 04/18/18 11:06 Dose: 50 mcg Fentanyl Citrate (Duragesic Patch Removal) 1 removal TD Q3D [facility] Last Admin: 04/18/18 11:06 Dose: 1 removal Fluticasone Propionate (Flonase) 1 spray EA [facility] Last Admin: 04/20/18 08:21 Dose: 1 spray Furosemide (Lasix 20 Mg Tab) 20 mg PO DAILY [facility] Last Admin: 04/20/18 08:20 Dose: 20 mg Haloperidol (Haldol) 0.5 mg PO Q6H PRN PRN Reason: Extreme agitation Haloperidol Lactate (Haldol) 0.5 mg IM Q6H PRN PRN Reason: Extreme agitation Levothyroxine Sodium (Synthroid) 75 mcg PO ACB [facility] Last Admin: 04/20/18 08:18 Dose: 75 mcg Loperamide HCl (Imodium) 2 mg PO QID PRN PRN Reason: Diarrhea Lorazepam (Ativan) 0.5 mg PO Q6H PRN PRN Reason: Extreme agitation Lorazepam (Ativan Inj) 0.5 mg IM Q6H PRN PRN Reason: Extreme agitation Magnesium Hydroxide (Mom) 30 ml PO DAILY PRN PRN Reason: Constipation Minocycline HCl (Minocin) 100 mg PO QAM [facility] Last Admin: 04/20/18 08:19 Dose: 100 mg Non-Formulary Medication (Epinephrine Pen) 0.3 mg PO PRN PRN PRN Reason: PRN orders Nystatin (Mycostatin) 1 applic TP PRN PRN PRN Reason: Apply to groin area as needed Omeprazole (Prilosec) 20 mg PO ACB [facility] Last Admin: 04/20/18 08:18 Dose: 20 mg Polyethylene Glycol (Miralax) 17 gm PO DAILY PRN PRN Reason: Constipation Sodium Chloride (Iv Flush) 10 - 80 ml IVF PRN PRN PRN Reason: Flushing Subjective: Patient seen and chart reviewed. Case discussed with treatment team. Patient is sitting in dayroom. He indicates his mood is good and he feels well physically though he exhibits poverty of thought. Nursing staff report patient has been cooperative overall, including with showers. He requires encouragement/direction to take his medications but this is not believed to be intentional. Overall he has been pleasant and often smiles /winks at nursing staff. He occasionally yells out for Sola, his . He has been participating in group to the best of his ability. Patient slept 9.25 hours overnight. VSS. Patient is eating well but requires assistance to do so. Psychotropic PRNs required in the past 24 hours: none. VPA level was 14.0 on admission indicating that he had not been adherent with Depakote. Start Time: 17:40 Stop Time: 18:00 Mental Status Exam Vitals: Last Vital Signs Temp 97.2 F 04/20/18 08:00 Pulse 72 04/20/18 08:19 Resp 16 04/20/18 08:00 BP 123/65 04/20/18 08:00 Pulse Ox 97 04/20/18 08:00 Height: 1.78 m Weight: 71.6 kg - Mental Status Exam Muscle Strength/Tone: Weak Dressing: Casual Grooming: Fair Attitude: Cooperative Motor Activity: Retardation Eye Contact: Fair Speech: Slowed Volume: Soft Rhythm: Appropriate Rhythm Orientation: Disoriented to time, Disoriented to place, Disoriented to situation , Oriented to person Mood: Euthymic Affect: Relaxed Rate of Thoughts: Delayed Thought Organization: [place] Associations: Illogical Abstract Reasoning: Impaired, concrete Thought Content: Other (poverty of thought) Perception/Psychotic: Hx psychosis, not current Language: Naming Impaired Fund of Knowledge: Poor fund of knowledge Memory: Poor-immediate, Poor-recent, Poor-remote Suicidal Ideation: None Homicidal Ideation: None Insight: Impaired Judgement: Impaired Impulse Control: Fair - Laboratory Result Diagrams: 04/20/18 18:24 04/20/18 18:24 Assessment and Plan (1) Major neurocognitive disorder due to Alzheimer's disease, probable, with behavioral disturbance Problem details: versus Vascular Dementia Other medical conditions: Bibasilar pneumonia Pressure ulcer to left heel, present on admission. Arrhythmia, chronic. Diabetes mellitus, type 2. Hypertension. Chronic pain. Allergic rhinitis. Hypothyroidism. GERD. Current visit: Yes Status: Acute (2) Delirium due to another medical condition Problem details: pneumonia Current visit: Yes Status: Resolved Trough VPA level prior to HS dose of Depakote tonight as well as CBC, CMP. Hospital Course Summary Disclaimer: The visit summary below is not to be considered part of the above Progress Note. Hospital Course: Impression Dementia with behavioral disturbance Bibasilar pneumonia Pressure ulcer to left heel, present on admission. Arrhythmia, chronic. Diabetes mellitus, type 2. Hypertension. Chronic pain. Allergic rhinitis. Hypothyroidism. GERD. Plan With admission to [facility] unit under the care of Dr. La for further psychiatric evaluation and treatment. Will continue with azithromycin 500 milligrams daily through 04/19/18 for treatment of pneumonia. Recommend pureed Diet and regular thin liquids as recommended by speech therapy on 04/14. Monitor blood pressure Chronically on Minocycline- suspect for chronic skin treatment Home medications continued Code status needs to be verified from family. Encourage patient to participate in unit activities and provide a safe environment 04/16/18 psych note- Pt is irritable but redirectable. Continue current care 04/17/18 Psych: Will change Depakote ER dose to 1800 to target evening mood lability, ensure adherence and recheck VPA level on 04/18 or 04/19. 04/18/18 Psych: Will continue current care with plan to check trough VPA level on 04/20 and adjust accordingly. 04/19/18 Psych: Depakote ER switched to sprinkles, 250mg PO in AM and 750mg in evening after nursing reported concern that he was not able to swallow tablet and other meds are crushed.. Will plan for trough VPA level prior to HS dose on 04/20 and adjust if needed. Patient doing well clinically. 04/20/18 Psych: Trough VPA level prior to HS dose of Depakote tonight as well as CBC, CMP.
--- NOTE | 2018-04-20 13:21 | Wound Care Progress Note ---
Wound Center Progress Note: Pt seen for wound follow up. Pt in bed, nurse is shaving pt's face. FLACC-0. Dressings removed from bilateral heel wounds. Wounds cleaned and redressed with Iodosorb/Mepilex. Continue to change dressings per order, float heels with yellow foam boots.
[2018-04-20 16:40] VITALS: TEMP 97.4
[2018-04-21] MEDS: LEVOTHYROXINE 75 MCG TABLET PO SCH (08:58)
[2018-04-21] MEDS: DIVALPROEX SPRINKLE 125 MG CAPSULE PO SCH (08:58)
[2018-04-21] MEDS: MINOCYCLINE 100 MG CAPSULE PO SCH (08:58)
[2018-04-21] MEDS: OMEPRAZOLE 20 MG CAPSULE PO SCH (08:58)
[2018-04-21] MEDS: ASPIRIN 81 MG CHEWABLE TABLET PO SCH (08:59)
[2018-04-21] MEDS: DUTASTERIDE 0.5 MG CAPSULE PO SCH (08:59)
[2018-04-21] MEDS: DOXAZOSIN 2 MG TABLET PO SCH (09:01)
[2018-04-21] MEDS: DIGOXIN 125 MCG TABLET PO SCH (09:01)
[2018-04-21] MEDS: FLUTICASONE NASAL SPRAY 50mcg EA NOSTRIL SCH (09:01)
[2018-04-21] MEDS: FUROSEMIDE 20 MG TABLET PO SCH (09:01)
[2018-04-21 09:04] VITALS: PULSE 73
[2018-04-21 09:24] VITALS: BP 146/77; RESP 18; O2SAT 92
--- NOTE | 2018-04-21 11:05 | Extended Care Facility Orders ---
Admission Orders Admit to:: [facility] Allergies/Adverse Reactions: Allergies morphine Allergy (Verified 04/13/18 13:39) sunflower seed Allergy (Verified 04/13/18 13:39) Admitting Diagnosis: bipolar jessy Admitting Physician: Rosa Maria La MD Attending Physician: Rosa Maria La MD Code Status: Do Not Resuscitate Anticiapted Length of Stay: greater than 30 days Diet: 04/15/18 Breakfast Regular Diet [DIET] Diet Modifications: Food Consistency: PUREE May use Facility Protocol or Standing Orders: Yes May have flu vaccine: Yes Evaluations/Treatment: Psychiatric [facility] Certification: I certify that SNF services are required to be given on an Inpatient basis because of the patients need for alf care on a continuing basis for the condition(s) for which he/she received inpatient hospital services prior to his/her transfer to the SNF. SNF inpatient care is necessary for the following reasons Indication for [facility]fp: Not Applicable - Additional Information Resident is Aware of Diagnosis: No Referrals: Price Oliva MD [Other] (Dr. Vandana Oliva on 05/02/18 at 2:30 pm for Hosp. follow-up. PCP will continue to manage Mental Health needs at this time.) Additional Orders: AVOID HIGH DOSES OF ANTIPSYCHOTICS; patient is likely to develop akathisia or EPS. Recommend monitoring Depakote level and adjusting if needed. If patient is doing well clinically, no need to increase dose to reach therapeutic level. However, if dosage increase needed, would not increase dose about mid-therapeutic level. Trough level should be checked just prior to AM dose if patient is adherent with regimen. Call 911 or take patient to ED if he becomes a danger to self or others. He should not have access to any medications , including [id number], firearms/weapons or vehicles.
--- NOTE | 2018-04-21 11:09 | Neuropsych Progress Note ---
[facility] Subjective Date: 04/21/18 - Sujective/Severity of Illness Medications: Acetaminophen (Tylenol) 325 - 650 mg PO Q5H PRN PRN Reason: Discomfort Last Admin: 04/20/18 08:25 Dose: 650 mg Al Hydroxide/Mg Hydroxide (Maalox Plus) 30 ml PO Q4H PRN PRN Reason: Indigestion Artificial Tears (Refresh Classic) 2 drop EACH EYE Q4H PRN PRN Reason: Dry eyes Artificial Tears (Refresh Celluvisc) 2 drop EACH EYE Q4H PRN PRN Reason: Dry eyes [facility]) [facility] [place] Admin: 04/21/18 08:59 Dose: 81 mg Bisacodyl (Dulcolax) 10 mg RECTALLY DAILY PRN PRN Reason: Constipation Digoxin (Lanoxin) 125 [facility] [place] Admin: 04/21/18 09:01 Dose: 125 mcg Divalproex Sodium (Depakote Sprinkle) 250 mg PO DAILY [facility] Last Admin: 04/21/18 08:58 Dose: 250 mg Divalproex Sodium (Depakote Sprinkle) 500 mg PO 18 [facility] Doxazosin Mesylate (Cardura) 2 mg PO DAILY [facility] Last Admin: 04/21/18 09:01 Dose: 2 mg Dutasteride (Avodart) 0.5 [facility] [place] Admin: 04/21/18 08:59 Dose: 0.5 mg Fentanyl (Duragesic Patch) 50 mcg TD Q72H [facility] Last Admin: 04/21/18 09:17 Dose: 50 mcg Fentanyl Citrate (Duragesic Patch Removal) 1 removal TD Q3D [facility] Last Admin: 04/21/18 09:17 Dose: 1 removal Fluticasone Propionate (Flonase) 1 spray EA [facility]STRIL [facility] [place] Admin: 04/21/18 09:01 Dose: 1 spray Furosemide (Lasix 20 Mg Tab) 20 mg PO DAILY [facility] Last Admin: 04/21/18 09:01 Dose: 20 mg Haloperidol (Haldol) 0.5 mg PO Q6H PRN PRN Reason: Extreme agitation Haloperidol Lactate (Haldol) 0.5 mg IM Q6H PRN PRN Reason: Extreme agitation Levothyroxine Sodium (Synthroid) 75 mcg PO ACB [facility] Last Admin: 07/20/18 08:58 Dose: 75 mcg Loperamide HCl (Imodium) 2 mg PO QID PRN PRN Reason: Diarrhea Lorazepam (Ativan) 0.5 mg PO Q6H PRN PRN Reason: Extreme agitation Lorazepam (Ativan Inj) 0.5 mg IM Q6H PRN PRN Reason: Extreme agitation Magnesium Hydroxide (Mom) 30 ml PO DAILY PRN PRN Reason: Constipation Minocycline HCl (Minocin) 100 mg PO QAM [facility] Last Admin: 04/21/18 08:58 Dose: 100 mg Non-Formulary Medication (Epinephrine Pen) 0.3 mg PO PRN PRN PRN Reason: PRN orders Nystatin (Mycostatin) 1 applic TP PRN PRN PRN Reason: Apply to groin area as needed Omeprazole (Prilosec) 20 mg PO ACB [facility] Last Admin: 04/21/18 08:58 Dose: 20 mg Polyethylene Glycol (Miralax) 17 gm PO DAILY PRN PRN Reason: Constipation Sodium Chloride (Iv Flush) 10 - 80 ml IVF PRN PRN PRN Reason: Flushing Subjective: Patient seen and chart reviewed. Case discussed with treatment team. Patient is asleep at time of rounds. Nursing staff report patient has been cooperative overall, including with showers. He has been in a good mood, smiling and winking at staff. No behavioral difficulties or aggression. Patient slept 6.5 hours overnight. VSS. Patient is eating well but requires assistance to do so. Psychotropic PRNs required in the past 24 hours: none. Patient inadvertently missed his HS dose of Depakote last night but will resume at 250mg Depakote sprinkles in AM and 500mg with supper. Patient had difficulty swallowing ER tab. Trough VPA level drawn last night (still accurate as it was prior to missed dose) was 39.5. Patient is doing well clinically though level is below therapeutic and would not increase unless patient began having further behaviors. Start Time: 06:40 Stop Time: 07:00 Mental Status Exam Vitals: Last Vital Signs Temp 97.4 F 04/21/18 00:00 Pulse 73 04/21/18 09:01 Resp 18 04/21/18 08:00 BP 146/77 H 04/21/18 08:00 Pulse Ox 92 04/21/18 08:00 Height: 1.78 m Weight: 71.6 kg - Mental Status Exam Muscle Strength/Tone: Weak Dressing: Casual Grooming: Fair Attitude: Cooperative Motor Activity: Retardation Eye Contact: Fair Speech: Slowed Volume: Soft Rhythm: Appropriate Rhythm Orientation: Disoriented to time, Disoriented to place, Disoriented to situation , Oriented to person Mood: Euthymic Rate of Thoughts: Delayed Thought Organization: [place] Associations: Illogical Abstract Reasoning: Impaired, concrete Thought Content: Other (poverty of thought) Perception/Psychotic: Hx psychosis, not current Language: Naming Impaired Fund of Knowledge: Poor fund of knowledge Memory: Poor-immediate, Poor-recent, Poor-remote Suicidal Ideation: None Homicidal Ideation: None Insight: Impaired Judgement: Impaired Impulse Control: Fair - Laboratory Result Diagrams: 04/20/18 18:24 04/20/18 18:24 Laboratory Results - last 24 hr 04/20/18 04/20/18 18:24 18:24 WBC 11.4 H RBC 5.41 Hgb 15.7 Hct 48.5 MCV 89.6 MCH 29.0 MCHC 32.4 RDW Std Deviation 49.4 Plt Count 207 MPV 10.5 Immature Gran % (Auto) 1.8 H Neut % (Auto) 66.6 H Lymph % (Auto) 18.3 L [place] % (Auto) 10.9 H Eos % (Auto) 1.9 Baso % (Auto) 0.5 Neut # (Auto) 7.6 Lymph # (Auto) 2.1 Hawkins # (Auto) 1.2 H Eos # (Auto) 0.2 Baso # (Auto) 0.1 Abs Immat Gran (auto) 0.21 H Turbidity < 20 Sodium 144 Potassium 4.5 Chloride 104 Carbon Dioxide 27 Anion Gap 13 BUN 25.0 H Creatinine 0.9 GFR Calculation 80 BUN/Creatinine Ratio 28 H Glucose 140 H Calculated Osmolality 283 H Calcium 9.4 Total Bilirubin 0.50 Conjugated Bilirubin 0.00 Unconjugated Bilirubin 0.30 Icterus Index < 2 AST 21 ALT 12 Alkaline Phosphatase 87 Total Protein 6.9 Albumin 3.9 Globulin 3.0 Albumin/Globulin Ratio 1.3 Specimen Hemolysis < 15 Valproic Acid 39.5 L Assessment and Plan (1) Major neurocognitive disorder due to Alzheimer's disease, probable, with behavioral disturbance Problem details: versus Vascular Dementia Other medical conditions: Bibasilar pneumonia Pressure ulcer to left heel, present on admission. Arrhythmia, chronic. Diabetes mellitus, type 2. Hypertension. Chronic pain. Allergic rhinitis. Hypothyroidism. GERD. Current visit: Yes Status: Acute (2) Delirium due to another medical condition Problem details: pneumonia Current visit: Yes Status: Resolved Plan to d/c back to LTC facility today. Hospital Course Summary Disclaimer: The visit summary below is not to be considered part of the above Progress Note. Hospital Course: Impression Dementia with behavioral disturbance Bibasilar pneumonia Pressure ulcer to left heel, present on admission. Arrhythmia, chronic. Diabetes mellitus, type 2. Hypertension. Chronic pain. Allergic rhinitis. Hypothyroidism. GERD. Plan With admission to [facility] under the care of Dr. La for further psychiatric evaluation and treatment. Will continue with azithromycin 500 milligrams daily through 04/19/18 for treatment of pneumonia. Recommend pureed Diet and regular thin liquids as recommended by speech therapy on 04/14. Monitor blood pressure Chronically on Minocycline- suspect for chronic skin treatment Home medications continued Code status needs to be verified from family. Encourage patient to participate in unit activities and provide a safe environment 04/16/18 psych note- Pt is irritable but redirectable. Continue current care 04/17/18 Psych: Will change Depakote ER dose to 1800 to target evening mood lability, ensure adherence and recheck VPA level on 04/18 or 04/19. 04/18/18 Psych: Will continue current care with plan to check trough VPA level on 04/20 and adjust accordingly. 04/19/18 Psych: Depakote ER switched to sprinkles, 250mg PO in AM and 750mg in evening after nursing reported concern that he was not able to swallow tablet and other meds are crushed.. Will plan for trough VPA level prior to HS dose on 04/20 and adjust if needed. Patient doing well clinically. 04/20/18 Psych: Trough VPA level prior to HS dose of Depakote tonight as well as CBC, CMP. 04/21/18 Psych: Plan to d/c back to LTC facility today.
--- NOTE | 2018-04-21 11:10 | Neuropsychiatric Disch Summary ---
Discharge Information Date of admission: 04/14/18 16:29 Anticipated date of discharge: 04/21/18 Attending Physician: Rosa Maria La MD Primary care physician: OTHER Consults: 04/14/18 16:52 Wound Vein Clinic Consult [CONS] Routine Reason for consultation: STAGE 3 WOUND TO RIGHT HEEL FOUND ON ASSESSMENT 04/14/18 16:57 Case Management Consult [CONS] Routine Reason For Exam: Medical comorbidities Physician Consult [CONS] Routine Consulting Provider: Chace Henderson Reason For Exam: Medical comorbidities Ordering Provider has Notified Project Design Engineer: No Comment: Nursing - please notify - Discharge Diagnosis (1) Major neurocognitive disorder due to Alzheimer's disease, probable, with behavioral disturbance Status: Acute (2) Delirium due to another medical condition Status: Resolved - Laboratory Labs: 04/20/18 18:24 04/20/18 18:24 Date of Admission: 04/14/18 16:29 History of Present Illness: HPI: 88Y/O CM with a hx of dementia sent from a care facility in [place] for increasing behaviors. Pt was initially admitted to the medical floor for pneumonia and then transferred to the [facility]. Nursing reports pt has been irritable and confused. He can be angry and sexually inappropriate at times. He has been spitting out his meds and has tried to bite staff. On face to face the pt is irritable. he is only oriented to self. He denies any pain. Voices no concerns at this time. STRESSORS: Recent pneumonia. PSYCH ROS: Pt denies feeling depressed. He is irritable and angry at times. He is confused saying he needs to go find a job. He denies psychosis. PAST PSYCH: Unclear at this time. The pt is on Depakote ER 100mg at Hospital Course This is a general summary of the patient's hospital course. For more details refer to the complete medical record. Hospital course: Impression Dementia with behavioral disturbance Bibasilar pneumonia Pressure ulcer to left heel, present on admission. Arrhythmia, chronic. Diabetes mellitus, type 2. Hypertension. Chronic pain. Allergic rhinitis. Hypothyroidism. GERD. Plan With admission to [facility] under the care of Dr. La for further psychiatric evaluation and treatment. Will continue with azithromycin 500 milligrams daily through 04/19/18 for treatment of pneumonia. Recommend pureed Diet and regular thin liquids as recommended by speech therapy on 7/13. Monitor blood pressure Chronically on Minocycline- suspect for chronic skin treatment Home medications continued Code status needs to be verified from family. Encourage patient to participate in unit activities and provide a safe environment 04/16/18 psych note- Pt is irritable but redirectable. Continue current care 04/17/18 Psych: Will change Depakote ER dose to 1800 to target evening mood lability, ensure adherence and recheck VPA level on 04/18 or 04/19. 04/18/18 Psych: Will continue current care with plan to check trough VPA level on 04/20 and adjust accordingly. 04/19/18 Psych: Depakote ER switched to sprinkles, 250mg PO in AM and 750mg in evening after nursing reported concern that he was not able to swallow tablet and other meds are crushed.. Will plan for trough VPA level prior to HS dose on 04/20 and adjust if needed. Patient doing well clinically. 04/20/18 Psych: Trough VPA level prior to HS dose of Depakote tonight as well as CBC, CMP. 04/21/18 Psych: Plan to d/c back to LTC facility today. Discharge Plan - Med Rec/Dispo Referrals/Follow Up: Price Oliva MD [Other] (Dr. Vandana Oliva on 05/02/18 at 2:30 pm for Hosp. follow-up. PCP will continue to manage Mental Health needs at this time.) Additional Instructions: Discharge Diagnosis: Reasons for Admission: Physical behaviors - throwing objects, and striking staff. IN CASE OF PSYCHIATRIC EMERGENCY, CONTACT [facility] STA[facility] AT [phone] ( available 24 hrs daily) Prescriptions: New Divalproex Sprinkle [Depakote Sprinkle] 500 mg PO WS 30 Days #120 cap Divalproex Sprinkle [Depakote Sprinkle] 250 mg PO WB 30 Days #60 cap Continue Fluticasone Nasal [place] [Flonase] 1 spray EA NOSTRIL QAM EPINEPHrine [Epipen 2-Ariel] 0.3 mg IM PRN PRN PRN Reason: Prn Orders Bisacodyl Supp [Dulcolax] 10 mg RECTALLY DAILY PRN PRN Reason: Constipation Doxazosin [Cardura] 2 mg PO DAILY Digoxin 125 mcg PO QAM Aspirin [Adult Aspirin] 81 mg PO QAM Dutasteride 0.5 mg PO QAM Loperamide HCl [Imodium A-D] 2 mg PO QID PRN PRN Reason: Diarrhea Acetaminophen [Tylenol] 650 mg PO Q4H PRN PRN Reason: Pain /Fever Carboxymethylcellulose Sodium [Refresh Liquigel] 2 drop EACH EYE Q4H PRN PRN Reason: Dry Eyes Omeprazole 20 mg PO QAM Mag Hydrox/Aluminum Hyd/Simeth [Alum-Mag Hydroxide-Simeth Liq] 30 ml PO Q4H PRN PRN Reason: Indigestion Peg 3350 238 G Bottle [Miralax] 17 gm PO DAILY PRN PRN Reason: Constipation Minocycline [Minocin] 100 mg PO QAM Magnesium Hydroxide [Milk of Magnesia] 30 ml PO DAILY PRN PRN Reason: Constipation Levothyroxine Sodium 75 mcg PO ACB Nystatin Powder [Mycostatin] 1 applicatio TP PRN PRN #1 bottle PRN Reason: Apply to groin area as needed Tramadol [Ultram] 50 mg PO Q4HR PRN #15 tab PRN Reason: Pain FentaNYL PATCH [Duragesic Patch] 50 mcg TD Q72H #6 patch Furosemide [Lasix 20 mg Tab] 20 mg PO DAILY Discontinued Haloperidol Lactate 5 mg IM Q8H PRN PRN Reason: Agitation Divalproex Sodium [Divalproex Sodium ER] 1,000 mg PO HS Diazepam [Valium] 5 mg PO Q12H PRN PRN Reason: Agitation Pseudoephedrine [Sudafed] 30 mg PO Q12H PRN PRN Reason: Allergy Symptoms Nystatin [Nystop] 1 applicatio TOP PRN PRN PRN Reason: Prn Orders OLANZapine [Olanzapine] 10 mg PO BID Acetaminophen [Tylenol] 325 - 650 mg PO Q5H PRN tab PRN Reason: Discomfort Azithromycin 250 mg PO DAILY #6 tab Haloperidol [Haldol] 5 mg PO QAM Fluoxetine HCl 40 mg PO QAM No Action Polyvinyl Alcohol/Povidone O/S [Refresh Classic] 2 drop EACH EYE Q4H PRN ampul PRN Reason: Dry Eyes - Disposition 04 To [facility] Home/Facility - Dismissal Complete Discharge Instructions are:: Complete
[2018-04-21] MEDS ORDERED: DIVALPROEX SPRINKLE 125 MG CAPSULE PO SCH (18:00)
== END 2018-04-21 12:55 | DRG 884 ==
LOC: GEN 16:29
PROVIDERS: ADMIT Psychiatry & Neurology Psychiatry; ATTEND Psychiatry & Neurology Psychiatry